=== PATIENT | male | born 1960 | race Caucasian/White ===

== ENCOUNTER → 2017-08-16 07:35 | Outpatient (CLI) | payer OTHER, SELFPAY ==
[2017-08-16 10:12] LABS: Absolute Neutrophil Count 4.7 X10^3/uL (2.0-7.7); Basophil# 0.02 X10^3/uL; Basophil% 0.3 % (0-1); Eosinophil# 0.19 X10^3/uL; Eosinophils% 2.6 % (0-5); Hematocrit 45.1 % (40-54); Hemoglobin 15.7 g/dl (13.0-16.5); Lymphocyte % 21.9 % (19-41); Mean Corp Hgb Conc 34.8 g/gl (32-36); Mean Corpuscular Hgb 31.6 pg (27.0-32.0); Mean Corpuscular Volume 90.7 fL (80-94); Mean Platelet Vol. 10.1 fl (6.2-12.0); Monocyte# 0.77 X10^3/uL; Monocyte% 10.5 % (0-10); Neutrophil # 4.72 X10^3/uL (2.7-7.7); Neutrophil % 64.6 % (47-70); Platelet Count 217 K/mm3 (150-450); RBC Distribution Width CV 12.5 % (11.6-14.6); RBC Distribution Width SD 40.9 fl (35.1-43.9); Red Blood Count 4.97 M/mm3 (4.6-6.2); White Blood Count 7.3 K/mm3 (4.4-11.0)
[2017-08-16 10:22] LABS: POSITIVE COUNT NO; POSITIVE DIFFERENTIAL NO; POSITIVE MORPHOLOGY NO
[2017-08-16 10:27] LABS: Hemoglobin A1c 6.3 % (4.2-6.3)
[2017-08-16 10:28] LABS: ALB/GLOB Ratio 1.2 RATIO (0.9-2.4); AST(SGOT) 19 U/L (15-37); Alanine Aminotransfer ALT/SGPT 40 U/L (16-61); Alkaline Phosphatase 86 U/L (45-117); Anion Gap 11 (5-15); BUN 14 mg/dL (7-18); BUN/Creat Ratio 14.7 RATIO (10-20); Calcium,Total 8.7 mg/dL (8.5-10.1); Chloride 105 mmol/L (98-107); Cholesterol 166 mg/dL (200); Creatinine, Serum 0.95 mg/dL (0.70-1.30); EST Glomerular Filtration Rate 87 mL/min (>60); Est Glom Filt Rate - Afr Amer 105 mL/min (>60); Globulin 3.2 g/dL (2.2-4.2); Glucose 90 mg/dL (74-106); High Density Lipoprotein 53 mg/dL; PSA,Total - Annual Screen 1.48 ng/mL (0.00-4.00); Potassium 3.8 mmol/L (3.5-5.1); Protein, Total 7.2 g/dL (6.4-8.2); Sodium Level 142 mmol/L (136-145); Triglycerides 87 mg/dL; Very Low Density Lipoprotein 17 mg/dL (5-40)
[2017-08-16 10:33] LABS: Color, Urine Yellow (Yellow); Glucose, Dipstick Normal (Normal); Ketone-Dipstick Negative (Negative); Leukocyte Esterase-Dipstick Negative /ul (Negative); Nitrite-Dipstick Negative (Negative); Occult Blood-Urine Negative /ul (Negative); Protein-Dipstick 15 mg/dl (Negative); Urine Bilirubin Dipstick Negative (Negative); Urine Clarity Clear (Clear); Urine Urobilinogen Normal (Normal)
== END ==
PROVIDERS: Family Provider Family Medicine; PCP Family Medicine; Visit Provider Family Medicine
DX: Z00.00 Encounter for general adult medical examination without abnormal findings (principal); E11.9 Type 2 diabetes mellitus without complications; I10 Essential (primary) hypertension
CPT/HCPCS: 36415; 80053; 80061; 81002; 83036; 84153; 85025; G0103

== ENCOUNTER 2018-04-28 11:29 | Emergency (ER) | payer OTHER, SELFPAY ==
[2018-04-28 11:29] VITALS: BP 161/81; PULSE 72; RESP 16; TEMP 36.6; O2SAT 99; BMI 31.1
[2018-04-28 11:39] VITALS: PULSE 80; RESP 17
--- NOTE | 2018-04-28 11:51 | EKG12_ITS ---
Test Reason : DIZZINESS Blood Pressure : / mmHG Vent. Rate : 060 BPM Atrial Rate : 060 BPM P-R Int : 186 ms QRS Dur : 114 ms QT Int : 402 ms P-R-T Axes : 022 006 005 degrees QTc Int : 402 ms Normal sinus rhythm Incomplete right bundle branch block Borderline ECG Confirmed by BETH DAVIDSON, REGINA ([id number]), legal editor ARMANDO TURNER ([id number]) on 05/02/2018 11:31:15 AM Referred By: ED Confirmed By:REGINA CAMPOS MD
--- NOTE | 2018-04-28 11:52 | ED.VISSUMM ---
- ER Visit Summary Date of Service: 04/28/18 Chief Complaint: Lightheaded History of Present Illness: The patient is a 57 M who states that he is lightheaded. He woke up today with the symptoms. He does not describe it as room spinning. He denies a headache or neck pain. Nothing makes it better or worse. No chest pain or shortness of breath. No nausea, vomiting or diarrhea. He denies any urinary symptoms. He feels like his mouth is dry. He has a history of vertigo. He drank a cup of coffee this morning but denies any other alcohol ingestion or drug use today. Physical Examination: Vital signs reviewed. HEENT exam unremarkable. Heart is regular rate and rhythm without murmurs. Lungs are clear to auscultation. Abdomen is soft and nontender. Extremities reveal no edema. Skin exam normal. Neurologic exam normal. Test Results: Laboratory studies unremarkable except for glucose of 113 Emergency Department Course and Treatment: The patient's EKG, chest x-ray and labs are all unremarkable. He was given IV fluids and feels better. He may have been slightly dehydrated. He will increase his hydration of water and will decrease coffee intake. He will follow-up with his PCP Treatment Plan: [] Disposition: Discharge Impression: Lightheaded This note was generated with [employer] dictation software. It may contain incorrect words, spelling, and punctuation that were not noted in review of the chart prior to signing ED Disposition - Plan for ED Patient: Referrals: Amari Carter MD [Primary Care Provider] -
--- NOTE | 2018-04-28 12:10 | RAD_ITS ---
STUDY: X-RAY CHEST REASON FOR EXAM: Male, 57 years old. Dizziness. TECHNIQUE: Single AP portable view of the chest. COMPARISON: November 25, 2013. FINDINGS: Low lung volumes. Cardiac silhouette unremarkable. Pulmonary vascularity unremarkable. Aorta unremarkable. No focal patchy airspace opacities. No pleural effusions. Upper abdomen unremarkable. Osseous structures intact. No pneumothorax. RAD/Chest 1 View (Portable) IMPRESSION: No acute cardiopulmonary findings Electronically Signed: Pato Hartman DO at 12:52 EDT Tel , Service support ,
[2018-04-28] MEDS: Aspirin 81 MG TAB.CHEW 324 MG PO (12:12)
[2018-04-28] MEDS: 0.9% Normal Saline 1,000 ML 999 ML IV (12:12)
[2018-04-28 12:22] LABS: Absolute Lymphocyte Count 1.49 X10^3/ul (0.83-4.51); Absolute Neutrophil Count 3.9 X10^3/uL (2.0-7.7); Basophil# 0.04 X10^3/uL; Basophil% 0.7 % (0-1); Eosinophil# 0.12 X10^3/uL; Hematocrit 43.9 % (40-54); Hemoglobin 14.9 g/dl (13.0-16.5); Lymphocyte # 1.49 X10^3/ul (4.0); Lymphocyte % 24.4 % (19-41); Mean Corp Hgb Conc 33.9 g/gl (32-36); Mean Corpuscular Hgb 31.4 pg (27.0-32.0); Mean Corpuscular Volume 92.6 fL (80-94); Monocyte# 0.58 X10^3/uL; Monocyte% 9.5 % (0-10); Neutrophil # 3.87 X10^3/uL (2.7-7.7); Neutrophil % 63.2 % (47-70); POSITIVE COUNT NO; POSITIVE DIFFERENTIAL NO; POSITIVE MORPHOLOGY NO; Platelet Count 228 K/mm3 (150-450); RBC Distribution Width CV 12.2 % (11.6-14.6); RBC Distribution Width SD 40.7 fl (35.1-43.9); Red Blood Count 4.74 M/mm3 (4.6-6.2); White Blood Count 6.1 K/mm3 (4.4-11.0)
[2018-04-28 12:41] LABS: Anion Gap 6 (5-15); BUN 20 mg/dL (7-18); BUN/Creat Ratio 18.2 RATIO (10-20); Calcium,Total 8.9 mg/dL (8.5-10.1); Chloride 106 mmol/L (98-107); EST Glomerular Filtration Rate 73 mL/min (>60); Est Glom Filt Rate - Afr Amer 89 mL/min (>60); Estimated Creatinine Clearance 71.68 ml/min; Glucose 113 mg/dL (74-106); Potassium 4.2 mmol/L (3.5-5.1); Sodium Level 139 mmol/L (136-145)
--- NOTE | 2018-04-28 13:11 | ED.DEP ---
ED Disposition - Plan for ED Patient: Disposition: Home or Assisted Living Instructions: ED Near Syncope Unkn Referrals: Amari Carter MD [Primary Care Provider] -
[2018-04-28 13:21] VITALS: BP 153/96; PULSE 63; RESP 14
== END 2018-04-28 13:27 | disposition home or self-care (01) ==
PROVIDERS: Emergency Provider Emergency Medicine; Family Provider Family Medicine; PCP Family Medicine
DX: R42 Dizziness and giddiness (principal); I45.10 Unspecified right bundle-branch block; I10 Essential (primary) hypertension
CPT/HCPCS: 71045; 80048; 84484; 85025; 93005; 96360; 99284; J7030; A4216

== ENCOUNTER → 2018-08-17 07:04 | Outpatient (CLI) | payer OTHER, SELFPAY ==
[2018-08-17 10:11] LABS: Color, Urine Yellow (Yellow); Glucose, Dipstick Normal (Normal); Ketone-Dipstick Negative (Negative); Leukocyte Esterase-Dipstick Negative /ul (Negative); Nitrite-Dipstick Negative (Negative); Occult Blood-Urine Negative /ul (Negative); Protein-Dipstick Negative (Negative); Specific Gravity, Urine 1.015 (1.002-1.030); Urine Bilirubin Dipstick Negative (Negative); Urine Clarity Sl. Cloudy (Clear); Urine Urobilinogen Normal (Normal)
[2018-08-17 10:16] LABS: Absolute Lymphocyte Count 1.68 X10^3/ul (0.83-4.51); Absolute Neutrophil Count 3.5 X10^3/uL (2.0-7.7); Basophil# 0.04 X10^3/uL; Basophil% 0.7 % (0-1); Eosinophil# 0.15 X10^3/uL; Eosinophils% 2.5 % (0-5); Hematocrit 47.7 % (40-54); Hemoglobin 16.5 g/dl (13.0-16.5); Lymphocyte # 1.68 X10^3/ul (4.0); Lymphocyte % 27.6 % (19-41); Mean Corp Hgb Conc 34.6 g/gl (32-36); Mean Corpuscular Hgb 30.8 pg (27.0-32.0); Mean Corpuscular Volume 89.2 fL (80-94); Mean Platelet Vol. 10.4 fl (6.2-12.0); Monocyte# 0.73 X10^3/uL; Neutrophil # 3.48 X10^3/uL (2.7-7.7); Platelet Count 220 K/mm3 (150-450); RBC Distribution Width CV 12.2 % (11.6-14.6); RBC Distribution Width SD 39.9 fl (35.1-43.9); Red Blood Count 5.35 M/mm3 (4.6-6.2); White Blood Count 6.1 K/mm3 (4.4-11.0)
[2018-08-17 10:17] LABS: POSITIVE COUNT NO; POSITIVE DIFFERENTIAL NO; POSITIVE MORPHOLOGY NO
[2018-08-17 10:32] LABS: Hemoglobin A1c 5.8 % (4.2-6.3)
[2018-08-17 10:38] LABS: ALB/GLOB Ratio 1.2 RATIO (0.9-2.4); AST(SGOT) 18 U/L (15-37); Alanine Aminotransfer ALT/SGPT 40 U/L (16-61); Albumin, Serum 3.9 g/dL (3.2-5.0); Alkaline Phosphatase 84 U/L (45-117); Anion Gap 8 (5-15); BUN 19 mg/dL (7-18); BUN/Creat Ratio 18.8 RATIO (10-20); Calcium,Total 8.9 mg/dL (8.5-10.1); Chloride 105 mmol/L (98-107); Cholesterol 186 mg/dL (200); Creatinine, Serum 1.01 mg/dL (0.70-1.30); EST Glomerular Filtration Rate 81 mL/min (>60); Est Glom Filt Rate - Afr Amer 98 mL/min (>60); Globulin 3.2 g/dL (2.2-4.2); Glucose 98 mg/dL (74-106); High Density Lipoprotein 54 mg/dL; Potassium 3.7 mmol/L (3.5-5.1); Protein, Total 7.1 g/dL (6.4-8.2); Sodium Level 140 mmol/L (136-145); Triglycerides 85 mg/dL; Very Low Density Lipoprotein 17 mg/dL (5-40)
== END ==
PROVIDERS: Family Provider Family Medicine; PCP Family Medicine; Referring Provider Family Medicine; Visit Provider Family Medicine
DX: Z00.00 Encounter for general adult medical examination without abnormal findings (principal); E11.9 Type 2 diabetes mellitus without complications; I10 Essential (primary) hypertension; Z12.5 Encounter for screening for malignant neoplasm of prostate
CPT/HCPCS: 36415; 80053; 80061; 81002; 83036; 84153; 85025; G0103

== ENCOUNTER → 2019-08-21 07:02 | Outpatient (CLI) | payer OTHER, SELFPAY ==
[2018-11-08 10:20] VITALS: BMI 30.9
[2019-08-21 10:22] LABS: Absolute Lymphocyte Count 1.75 X10^3/uL (0.83-4.51); Absolute Neutrophil Count 4.5 X10^3/uL (2.0-7.7); Basophil# 0.05 X10^3/uL; Basophil% 0.7 % (0-1); Eosinophil# 0.18 X10^3/uL; Eosinophils% 2.5 % (0-5); Hematocrit 46.6 % (40-54); Lymphocyte # 1.75 X10^3/ul (4.0); Lymphocyte % 24.1 % (19-41); Mean Corp Hgb Conc 34.3 g/dL (32-36); Mean Corpuscular Hgb 31.7 pg (27.0-32.0); Mean Corpuscular Volume 92.3 fL (80-94); Mean Platelet Vol. 10.2 fl (6.2-12.0); Monocyte# 0.75 X10^3/uL; Monocyte% 10.3 % (0-10); NRBC Flagged by Analyzer 0 % (0-5); Neutrophil # 4.52 X10^3/uL (2.7-7.7); Neutrophil % 62.1 % (47-70); Platelet Count 245 K/mm3 (150-450); RBC Distribution Width CV 12.4 % (11.6-14.6); RBC Distribution Width SD 41.4 fl (35.1-43.9); Red Blood Count 5.05 M/mm3 (4.6-6.2); White Blood Count 7.3 K/mm3 (4.4-11.0)
[2019-08-21 10:24] LABS: Color, Urine Yellow (Yellow); Glucose, Dipstick Normal (Normal); Ketone-Dipstick Negative (Negative); Leukocyte Esterase-Dipstick Negative /ul (Negative); Nitrite-Dipstick Negative (Negative); Occult Blood-Urine Negative /ul (Negative); Protein-Dipstick Negative (Negative); Urine Bilirubin Dipstick Negative (Negative); Urine Clarity Sl. Cloudy (Clear); Urine Urobilinogen Normal (Normal)
[2019-08-21 10:42] LABS: ALB/GLOB Ratio 1.2 RATIO (0.9-2.4); AST(SGOT) 13 U/L (15-37); Alanine Aminotransfer ALT/SGPT 36 U/L (16-61); Alkaline Phosphatase 90 U/L (45-117); Anion Gap 5 (5-15); BUN 17 mg/dL (7-18); BUN/Creat Ratio 17.2 RATIO (10-20); Calcium,Total 8.6 mg/dL (8.5-10.1); Chloride 109 mmol/L (98-107); Cholesterol 198 mg/dL (200); Creatinine, Serum 0.99 mg/dL (0.70-1.30); EST Glomerular Filtration Rate 83 mL/min (>60); Est Glom Filt Rate - Afr Amer 100 mL/min (>60); Globulin 3.3 g/dL (2.2-4.2); Glucose 108 mg/dL (74-106); High Density Lipoprotein 57 mg/dL; PSA,Total - Annual Screen 1.31 ng/mL (0.00-4.00); Potassium 3.6 mmol/L (3.5-5.1); Protein, Total 7.3 g/dL (6.4-8.2); Sodium Level 139 mmol/L (136-145); Triglycerides 83 mg/dL; Very Low Density Lipoprotein 17 mg/dL (5-40)
[2019-08-21 10:44] LABS: Hemoglobin A1c 5.6 % (3.8-5.6)
== END ==
PROVIDERS: PCP Family Medicine; Referring Provider Family Medicine; Visit Provider Family Medicine
DX: Z00.00 Encounter for general adult medical examination without abnormal findings (principal); E11.9 Type 2 diabetes mellitus without complications; I10 Essential (primary) hypertension; Z12.5 Encounter for screening for malignant neoplasm of prostate
CPT/HCPCS: 36415; 80053; 80061; 81002; 83036; 84153; 85025; G0103

== ENCOUNTER 2019-10-05 23:19 | Emergency (ER) | payer OTHER, SELFPAY ==
[2018-11-08 10:20] VITALS: BMI 30.9
[2019-10-05 23:20] VITALS: BP 150/80; PULSE 73; RESP 16; TEMP 36.3; O2SAT 97; BMI 29.6
--- NOTE | 2019-10-05 23:34 | ED.VIS.GEN ---
History of Present Illness Chief Complaint: Dental Informant: Patient Onset: Today Narrative: Worsening pain lower anterior gumline with swelling today. Had mild symptoms a week ago that went away. No fevers. No hot cold sensitivities. Denies dental pain. Denies any bleeding with brushing. He states had a basketball injury where his teeth was severely loose and when he was younger, he states there was a hole in his gumline at one point which closed up with 10 years ago. He does have a dentist however is not seen in a while. Denies any allergies. Prior similar symptoms: Yes Past Medical History - Allergies and Home Meds Allergies/Adverse Reactions: Allergies No Known Allergies Allergy (Verified 10/05/19 23:22) Primary Care Physician: Amari Carter MD [Primary Care Provider] - Past Medical History: - - Hypertension Smoking Status: Former smoker - Family History Maternal Family History: Family History (Last Reviewed 11/08/18 @ 15:[address] Calvin Yanes MD) Father CAD (coronary artery disease) Hypertension Heart disease Mother CAD (coronary artery disease) Brother Hypertension Family History: Reports: No pertinent history Review of Systems General: Denies: Chills, Fever, Sweats Eyes: Denies: Visual changes - bilaterally, Diplopia ENT: Reports: - - Gum pain. Denies: Rhinorrhea, Sore throat Cardiovascular: Denies: Chest pain, Palpitations Respiratory: Denies: Dyspnea, Cough, Dyspnea on exertion Gastrointestinal: Denies: Abdominal pain, Nausea, Vomiting, Diarrhea, Melena, Hematochezia Genitourinary: Denies: Dysuria, Hematuria, Frequency Musculoskeletal: Denies: Back pain, Extremity Pain Skin: Denies: Rash, Wounds Neurological: Denies: Headache, Weakness, Numbness Physical Exam Vital Signs/Narrative: Vital Signs Temp Pulse Resp BP Pulse Ox 10/05/19 23:20 97.3 F L 73 16 150/80 H 97 Inital Vital Signs reviewed: Yes General: Well nourished, Well developed, No Acute Distress Head: Normocephalic, Atraumatic Eyes: Perrl, EOMI ENT: Moist mucous membranes, No rhinorrhea, - - Normal dentition, there is fluctuance along the gumline along the right lower incisor with tenderness. There is no cavities. No sublingual edema. No submental lymphadenopathy. Neck: Supple, Nontender Cardiovascular: Regular rate, Regular rhythm, No murmurs Respiratory: No distress, CTA bilaterally, Chest nontender Abdomen: Soft, Nontender, Nondistended, Normal bowel sounds Back: Nontender, Normal Inspection Extremities: Nontender, No edema Skin: Normal color, No rash Neurological: Alert, Oriented x3, Cranial nerves II-XII grossly intact, Normal Strength, Normal Sensation Psychological: Normal affect, Normal Mood Diagnostic/Tx/Re-eval - Medical Decision Making Exam with abscess along the gumline right lower incisor. He did report he had some root issues from his dentist in the past, likely infection from this is not visualized. Discussed incised and drained with patient who agreed. This was performed however there is only bloody drainage no exudates. He was started on penicillin for 10 days. Use Tylenol and Motrin as needed. He will follow-up with his dentist. Procedure note: Verbal consent. Incision and drainage. Normal sterile conditions. A dental block use with 2 cc bupivacaine right submental with good analgesia. Straight incision with 11 blade along with fluctuance with no exudates there is bloody drainage. This controlled with gauze. Patient tolerate procedure well. ED Disposition - Plan for ED Patient: Disposition: Home or Assisted Living Diagnosis: Dental abscess Instructions: Dental Abscess Prescriptions: Penicillin V Potassium 500 mg PO 4X/DAY #40 tab Transmission Status: Pending to [facility] Referrals: Amari Carter MD [Primary Care Provider] - Additional Instructions: Follow up with your dentist for evaluation.
[2019-10-06] MEDS: Bupivacaine Mpf 0.5% 30 ML VIAL INFILT (00:55)
[2019-10-06 01:00] VITALS: BP 146/70; PULSE 73; RESP 18; O2SAT 96
== END 2019-10-06 01:01 | disposition home or self-care (01) ==
PROVIDERS: Emergency Provider Emergency Medicine; PCP Family Medicine
DX: K04.7 Periapical abscess without sinus (principal); I10 Essential (primary) hypertension; Z82.49 Family history of ischemic heart disease and other diseases of the circulatory system; Z87.891 Personal history of nicotine dependence
CPT/HCPCS: 41800; 64999; 99282

== ENCOUNTER 2019-11-29 07:21 | Day surgery (SDC) | payer OTHER, SELFPAY ==
[2019-11-29] VITALS (7 sets, daily range): BP systolic 83–119; BP diastolic 46–88; PULSE 70–73; RESP 12–20; TEMP 36.9–37.4; O2SAT 95–96; BMI 29.6
--- NOTE | 2019-11-29 07:52 | SUR.PREOP ---
tap water enema given.
[2019-11-29] MEDS: Lactated Ringers 1,000 ML 100 ML IV (08:02)
--- NOTE | 2019-11-29 08:40 | H&P.OPEN ---
History of Present Illness Date of Admission: 11/29/19 The patient is a 59 year old M who presents for colonoscopy. Patient had a colonoscopy in 2017 had a tubular adenoma removed he presents here for refollow-up and a repeat colonoscopy. Past Medical/Surgical History - Planned Operation Planned Operative Procedure/s: COLONOSCOPY Date of Operative Procedure: 11/29/19 Permit Signed: Yes S.O.S: No Is This Patient Having a Total Joint: No - Previous Hospitalizations/Surgeries HX Hospitalizations: No HX of Surgeries: TONSILLECTOMY CHILD. COLONOSCOPY Any Problems With Anesthesia: No You/Your Family Experience Fever (Hyperthermia) With Anes: No Cholinesterase deficiency: No - Cardiovascular Hx Chest Pain within Last 2 months: No Hx of Irregular Heartbeat and/or Afib: No - FOLLOWS WITH DR CAMPOS LAST VISIT 11/08/2018 Hx Heart Attack: No Hx Congestive Heart Failure: No Hx Rheumatic Fever: No Hx Hypertension: Yes - ON MED, NOT CONTROLLED Hx Internal Defibrillator: No Hx Pacemaker: No Hx Cardiac Catheterization: No Hx Cardiac Surgery/Stents/Etc.: No Hx Stress Test: Yes - 2013 AND ECHO 2013 HX Edema: No Hx Pain in Legs when Walking/Leg Cramps: No - Respiratory Chronic Cough: No HX of Shortness of Breath: No Hoarseness: No Hx Chronic Obstructive Pulmonary Disease (COPD): No Hx Asthma: No Hx Emphysema: No Hx Sleep Apnea: No Hx Oxygen Use at Home: No Hx Respiratory Tract Infection/Cold (presently): No Do You Snore Loudly (louder than talking or can be heard): No Do You Often Feel Tired/ Fatigued/ Sleepy Dring Daytime?: No Has Anyone Observed You Stop Breathing During Sleep?: No Result (for STOP score): Negative Hx Smoking: Yes - QUIT 4 YRS AGO/1/2 PPD FOR 10-15 YRS Smoking Status: Former smoker - Gastrointestinal Hx Gastroesophageal Reflux: Yes - BETTER WITH DIET CHANGE Controlled With Meds: No Hx Gastrointestinal Disorders: No Hx Gastrointestinal Bleed: No Hx Ulcer: No Hx Hiatal Hernia: No Difficulty Chewing/Swallowing: No Recent Onset of Swallowing Problems: No Special diet followed at home: Yes - DIABETIC Hx Unplanned Weight Loss of 20#: No HX Unplanned Weight Gain of 20#: No - Neurological Hx Seizures: No HX Syncope/Blackout Spells/Unconsciousness: No Hx CVA/Stroke: No Hx Transient Ischemic Attacks (TIA): No Hx Multiple Sclerosis: No Hx Parkinson's Disease: No Hx Head/Neck Injury: No Hx Headaches: No Hx Back Injury/Pain: No Recent Onset of Speech Difficulty: No Restless Legs: No Does patient have nerve stimulator: No - Blood Disorder Hx Leukemia: No Bleeding Tendencies: No Hx Deep Vein Thrombosis: No Hx High Cholesterol: No - BORDERLINE Blood Transmitted Disease: No Hx Hepatitis: No Hx Cirrhosis: No Hx Anemia: No Hx Blood Disorders: No - Genitourinary Hx Renal Disease: No - Musculoskeletal Hx Arthritis: No Hx Rheumatoid Arthritis: No Hx Gout: No Recent Onset of an Orthopedic Problem: No - Endocrine Hx Diabetes: No Insulin: No Thyroid Disease: No Hx Steroid Therapy: No - Psycho/Social Hx Substance Use: No Hx Alcohol Use: No Hx Anxiety: No Hx Depression: No Mental Illness: No Hx Dementia: No - Miscellaneous Hx Cancer: No Recent Exposure to Contagious Disease: No Active MRSA: No Hx of C-Diff: No Any Loose Teeth: No Allergies No Known Allergies Allergy (Verified 11/29/19 07:41) Maternal Family History: Family History (Last Reviewed 11/08/18 @ 15:[address] Calvin Campos MD) Father CAD (coronary artery disease) Hypertension Heart disease Mother CAD (coronary artery disease) Brother Hypertension No pertinent history - Discharge Is Pt Admitted From a Group Home, or a Retirement: No Who Could Help: HOSP VAN After D/C, Where Do you Plan to Go: Return Home - Physical Exam Vitals/I&O's: Vital Signs Temp Pulse Resp BP Pulse Ox 98.6 F 72 16 113/69 95 11/29/19 07:44 11/29/19 07:44 11/29/19 07:44 11/29/19 07:44 11/29/19 07:44 Oxygen Delivery Method Room Air Weight: 195 lb 1.745 oz Body Mass Index (BMI) 29.6 General: Alert, Oriented x3 Lungs: Clear to auscultation Cardiovascular: Regular rate, Regular Rhythm, No murmurs Abdomen: Bowel Sounds Present, Soft, Non Tender, Non-Distended Current Medications Lactated Ringer's () 1,000 mls @ 100 mls/hr IV .Q10H KULWANT Last Admin: 11/29/19 08:02 Dose: 100 mls/hr Documented by: Assessment/Plan Assessment: Personal history of colonic polyps Plan: To perform a colonoscopy. Surgery Risks - Colonoscopy Risks Include but are not Limited To: Risks include but are not limited to: Bleeding, perforation requiring further surgery, inability to complete colonoscopy requiring barium enema.
--- NOTE | 2019-11-29 09:01 | OP.COLON_ITS ---
Patient Name: Blake Juan Procedure Date: 11/29/2019 8:34 AM Date of : 1960 Age: 59 Procedure: Colonoscopy Indications: High risk colon cancer surveillance: Personal history of colonic polyps Providers: Rodo Medina MD Referring MD: Amari Carter Medicines: See the Anesthesia note for documentation of the administered medications Patient Profile: This is a 59 year old male. Refer to note in patient chart for documentation of history and physical. Last Colonoscopy: 3 years ago. Complications: No immediate complications. Procedure: Pre-Anesthesia Assessment: - Prior to the procedure, a History and Physical was performed, and patient medications and allergies were reviewed. The patient's tolerance of previous anesthesia was also reviewed. The risks and benefits of the procedure and the sedation options and risks were discussed with the patient. All questions were answered, and informed consent was obtained. Prior Anticoagulants: The patient has taken no previous anticoagulant or antiplatelet agents. ASA Grade Assessment: II - A patient with mild systemic disease. After reviewing the risks and benefits, the patient was deemed in satisfactory condition to undergo the procedure. After I obtained informed consent, the scope was passed under direct vision. Throughout the procedure, the patient's blood pressure, pulse, and oxygen saturations were monitored continuously. The Colonoscope was introduced through the anus and advanced to the cecum, identified by appendiceal orifice and ileocecal valve. The colonoscopy was performed without difficulty. The patient tolerated the procedure well. The quality of the bowel preparation was good. Scope In: 8:44:23 AM Scope Withdrawal Time 0 hours 9 minutes 35 seconds Scope Out: 8:56:31 AM Total Procedure Duration Time 0 hours 12 minutes 8 seconds Findings: Non-bleeding internal hemorrhoids were found during retroflexion. The hemorrhoids were mild and medium-sized. A few small-mouthed diverticula were found in the sigmoid colon. No biopsies or other specimens were collected for this exam. The exam was otherwise without abnormality. Impression: - Non-bleeding internal hemorrhoids. - Diverticulosis in the sigmoid colon. No specimens collected. - The examination was otherwise normal. Recommendation: - Discharge patient to home. - Resume previous diet. - Continue present medications. - Repeat colonoscopy in 10 years for screening purposes. - Return to primary care physician (date not yet determined). Procedure Code(s): --- Professional --- 47412, Colonoscopy, flexible; diagnostic, including collection of specimen(s) by brushing or washing, when performed (separate procedure) Diagnosis Code(s): --- Professional --- Z86.010, Personal history of colonic polyps K64.8, Other hemorrhoids K57.30, Diverticulosis of large intestine without perforation or abscess without bleeding CPT copyright 2017 [employer]. All rights reserved. The codes documented in this report are preliminary and upon mortician investigator review may be revised to meet current compliance requirements. MD Rodo Mejia MD 11/29/2019 9:01:31 AM This report has been signed electronically. Number of Addenda: 0 Note Initiated On: 11/29/2019 8:34 AM
--- NOTE | 2019-11-29 09:02 | OP.CCLET_ITS ---
11/29/2019 Amari Carter Re : Colonoscopy procedure for Blake Juan Dear Raul This procedure was performed on Friday, November 29, 2019. My impressions and recommendations are as follows: Impressions : - Non-bleeding internal hemorrhoids. - Diverticulosis in the sigmoid colon. No specimens collected. - The examination was otherwise normal. Recommendations : - Discharge patient to home. - Resume previous diet. - Continue present medications. - Repeat colonoscopy in 10 years for screening purposes. - Return to primary care physician (date not yet determined). My findings are described in the full procedure note, which is enclosed. If I can be of further assistance, please feel free to contact me at Doctor phone number(s): , Fax: [phone], Work: . Sincerely, MD Rodo Mejia MD 11/29/2019 9:01:31 AM This report has been signed electronically.
== END 2019-11-29 09:54 | disposition home or self-care (01) ==
LOC: EN 07:21 → AC 07:22
PROVIDERS: Anesthesiology; PCP Family Medicine; Referring Provider Family Medicine; Visit Provider Surgery
PROC: 0DJD8ZZ Inspection of Lower Intestinal Tract, Via Natural or Artificial Opening Endoscopic (ICD-10-PCS; CPT 45378; principal; 2019-11-29 08:40)
DX: Z12.11 Encounter for screening for malignant neoplasm of colon (principal); Z86.010 Personal history of colon polyps; Z87.19 Personal history of other diseases of the digestive system; Z82.49 Family history of ischemic heart disease and other diseases of the circulatory system; K64.8 Other hemorrhoids; K57.30 Diverticulosis of large intestine without perforation or abscess without bleeding; I10 Essential (primary) hypertension
CPT/HCPCS: 45380; 87635; C9803; J7120; J2405; U0003

== ENCOUNTER → 2020-10-21 07:02 | Outpatient (CLI) | payer OTHER, SELFPAY ==
[2020-10-21 10:39] LABS: Absolute Lymphocyte Count 1.35 X10^3/uL (0.83-4.51); Absolute Neutrophil Count 4.2 X10^3/uL (2.0-7.7); Basophil# 0.04 X10^3/uL; Basophil% 0.6 % (0-1); Eosinophil# 0.19 X10^3/uL; Hemoglobin 15.4 g/dL (13.0-16.5); Lymphocyte # 1.35 X10^3/ul (0.83-4.51); Mean Corp Hgb Conc 34.2 g/dL (32-36); Mean Corpuscular Volume 90.7 fL (80-94); Mean Platelet Vol. 10.5 fl (6.2-12.0); Monocyte# 0.66 X10^3/uL; Monocyte% 10.2 % (0-10); NRBC Flagged by Analyzer 0 % (0-5); Neutrophil # 4.17 X10^3/uL (2.7-7.7); Neutrophil % 64.7 % (47-70); Platelet Count 214 K/mm3 (150-450); RBC Distribution Width CV 12.1 % (11.6-14.6); RBC Distribution Width SD 40.1 fl (35.1-43.9); Red Blood Count 4.96 M/mm3 (4.6-6.2); White Blood Count 6.4 K/mm3 (4.4-11.0)
[2020-10-21 10:58] LABS: ALB/GLOB Ratio 1.1 RATIO (0.9-2.4); AST(SGOT) 17 U/L (15-37); Alanine Aminotransfer ALT/SGPT 42 U/L (16-61); Albumin, Serum 3.7 g/dL (3.2-5.0); Alkaline Phosphatase 84 U/L (45-117); Anion Gap 8 (5-15); BUN 13 mg/dL (7-18); Chloride 105 mmol/L (98-107); Cholesterol 178 mg/dL (200); Creatinine, Serum 0.93 mg/dL (0.70-1.30); EST Glomerular Filtration Rate 88 mL/min (>60); Est Glom Filt Rate - Afr Amer 107 mL/min (>60); Globulin 3.5 g/dL (2.2-4.2); Glucose 104 mg/dL (74-106); High Density Lipoprotein 57 mg/dL; Potassium 3.4 mmol/L (3.5-5.1); Protein, Total 7.2 g/dL (6.4-8.2); Sodium Level 139 mmol/L (136-145); Triglycerides 129 mg/dL; Very Low Density Lipoprotein 26 mg/dL (5-40)
--- NOTE | 2020-10-21 13:19 | RAD_ITS ---
STUDY: X-RAY - LUMBAR SPINE REASON FOR EXAM: Male, 60 years old. BACK PAIN TECHNIQUE: 3 view(s) of the lumbar spine were obtained. COMPARISON: None FINDINGS: Normal lumbar lordosis. There is no substantial scoliosis. There is a normal alignment of the vertebrae from L1 to L5. There is a grade 1-2 spondylolisthesis at L5/S1 with significant disc space narrowing and vacuum disc phenomenon.. There is multilevel endplate spondylosis of the lumbar vertebrae. There is multi-level degenerative disc disease with multi-level disc space narrowing. There is no demonstrated fracture. The soft tissue structures are unremarkable. RAD/Lumbar Spine 2 or 3 Views IMPRESSION: Multilevel degenerative changes without fracture or suspicious osseous lesion Grade 1-2 spondylolisthesis of L5/S1 with significant disc space narrowing and vacuum disc phenomenon. Electronically Signed: Gilbert Landaverde MD at 16:57 EDT , Service support ,
== END ==
PROVIDERS: PCP Family Medicine; Referring Provider Family Medicine; Visit Provider Family Medicine
DX: I10 Essential (primary) hypertension (principal); M54.5 Low back pain
CPT/HCPCS: 36415; 72100; 80053; 80061; 85025

== ENCOUNTER → 2021-01-22 14:57 | Outpatient (CLI) | payer OTHER, SELFPAY ==
--- NOTE | 2021-01-22 15:00 | ECHOCS_ITS ---
Reason For Study: HTN Procedure This was a 2D Doppler, Color Flow transthoracic echocardiogram. The study was technically difficult. Contrast injection was performed. Exam performed in department. Left Ventricle Normal LV size. Left ventricular systolic function is normal. The estimated ejection fraction is 60 %. No regional wall motion abnormalities noted. Right Ventricle Normal RV size. Normal systolic function. Atria Normal left atrium. Normal right atrium. Mitral Valve Normal mitral valve. Tricuspid Valve Normal tricuspid valve. Mild (1+) tricuspid valve insufficiency. Pulmonary artery systolic pressure is 38 mmHg. Aortic Valve Normal aortic valve. Pulmonic Valve Normal pulmonic valve. Great Vessels Normal aortic root. The pulmonary artery is normal size. Normal inferior vena cava. Pericardium/Pleural No pericardial effusion. Medication 22 gauge I.V. with prn adaptor inserted into left arm. Diluted definity 4.0ml given slow IV push to enhance endocardial definition. MMode/2D Measurements & Calculations LVIDd: 4.7 cm IVSd: 0.88 cm Ao root diam: 3.8 cm LVIDs: 3.1 cm LVPWd: 0.88 cm RVDd: 3.6 cm FS: 34.0 % LAV(MOD-bp): 42.3 ml LA A4 area: 16.0 cm2 LA dimension(2D): 3.9 cm LAV(MOD-bp) Indexed: 20.9 ml/m2 LAV(MOD-sp2): 42.7 ml LAV(MOD-sp4): 40.5 ml RA A4 area: 16.2 cm2 Doppler Measurements & Calculations MV E max jose: 88.4 cm/sec Lat Peak E' Jose: 11.6 cm/sec Med Peak E' Jose: 7.4 cm/sec MV A max jose: 83.1 cm/sec E/E' lat: 7.6 E/E' med: 11.9 MV E/A: 1.1 Ao V2 max: 175.0 cm/sec LV V1 max: 123.8 cm/sec PA V2 max: 144.3 cm/sec Ao max P.3 mmHg LV V1 max P.1 mmHg TR max jose: 294.5 cm/sec TR max P.7 mmHg ECHO/Echo Complete W/ Contrast Interpretation Summary Normal LV size. Left ventricular systolic function is normal. The estimated ejection fraction is 60 %. Pulmonary artery systolic pressure is 38 mmHg. Contrast injection was performed. Ordering Physician: Calvin Yanes Referring Physician: AARON ANDERSON Performed By: Christina Wilson, MAHNAZCS, RVT
== END ==
PROVIDERS: PCP Family Medicine; Referring Provider Internal Medicine Cardiovascular Disease; Visit Provider Internal Medicine Cardiovascular Disease
DX: I10 Essential (primary) hypertension (principal)
CPT/HCPCS: 93306; Q9957; A4216; C8929

== ENCOUNTER → 2021-01-25 08:00 | Outpatient (CLI) | payer OTHER, SELFPAY ==
--- NOTE | 2021-01-25 08:19 | MRI_ITS ---
HISTORY: PAIN. TECHNIQUE: Multiplanar and multisequence MR images of the lumbar spine. IV Contrast dosage and agent: None. # of images incl. paperwork: 137. COMPARISON: XR 10/21/2020. FINDINGS: VERTEBRAE: Vertebral body heights maintained. L4 vertebral body hemangioma present. Bilateral L5 spondylolysis. Degenerative bone marrow endplate changes of L5-S1. ALIGNMENT: Unchanged 10 mm anterolisthesis of L5-S1 CONUS: Normal morphology and position at L1. SOFT TISSUES: No paraspinal fluid collections. INTERVERTEBRAL DISCS: Multilevel degenerative changes with posterior disc bulge osteophyte complexes and facet arthropathy. L1-2: Very mild central canal stenosis and right foraminal narrowing. L2-3:Minimal narrowing of thecal sac. Mild bilateral foraminal narrowing. L3-4: Minimal narrowing of the thecal sac. Moderate bilateral foraminal narrowing. L4-5: No significant central canal stenosis. Mild left greater than right foraminal narrowing. L5-S1: Loss of intervertebral disc height. No significant central canal stenosis. Moderate-severe bilateral foraminal narrowing with bilateral L5 nerve root impingement. MRI/Spine Lumbar (Routine) IMPRESSION: L5 spondylolysis with grade 1-2 spondylolisthesis. Multilevel degenerative disc disease as described above. at 0935 Reported and signed by: Nancy Skinner MD Electronically Signed: Nancy Skinner MD at 9:34 EST Tel , Service support ,
== END ==
PROVIDERS: PCP Family Medicine; Referring Provider Anesthesiology Pain Medicine; Visit Provider Anesthesiology Pain Medicine
DX: M54.9 Dorsalgia, unspecified (principal); M79.605 Pain in left leg
CPT/HCPCS: 72148

== ENCOUNTER 2021-07-11 17:15 | Emergency (ER) | payer OTHER, SELFPAY ==
[2021-07-11 17:15] VITALS: BP 151/84; PULSE 70; RESP 16; TEMP 36.5; O2SAT 94; BMI 29.6
--- NOTE | 2021-07-11 17:35 | EKG12_ITS ---
Test Reason : Blood Pressure : / mmHG Vent. Rate : 064 BPM Atrial Rate : 064 BPM P-R Int : 174 ms QRS Dur : 108 ms QT Int : 388 ms P-R-T Axes : 045 003 010 degrees QTc Int : 400 ms Normal sinus rhythm Normal ECG Confirmed by BETH DAVIDSON, REGINA ([id number]), restaurant expeditor ARMANDO TURNER ([id number]) on 07/14/2021 1:01:46 PM Referred By: MARIE Confirmed By:REGINA CAMPOS MD
--- NOTE | 2021-07-11 17:35 | CT_ITS ---
STUDY: CT BRAIN WITHOUT CONTRAST REASON FOR EXAM: Male, 61 years old. dizzy TECHNIQUE: Transaxial CT imaging of the brain was performed without administration of intravenous contrast material. Individualized dose optimization techniques were used for this CT. COMPARISON: None FINDINGS: Normal calvarium. Normal soft tissues. Normal size ventricles and extra-axial spaces for the patient''s age. Normal white matter tracts of the cerebral hemispheres. Normal basal ganglia and thalami. Normal brainstem. Normal cerebellum. There is no intracranial hemorrhage. There are no findings of an acute ischemic infarction. There are calcifications noted in the distal vertebral arteries. There are calcifications noted in the cavernous carotid arteries. This is consistent for atherosclerotic disease. Normal visualized paranasal sinuses. ASPECTS 10 CT/Brain/Head without Contrast IMPRESSION: There are no acute intracranial findings. Electronically Signed: Tone Kauffman MD at 18:27 EDT ,
--- NOTE | 2021-07-11 17:36 | EX.ED.DYSGE1 ---
HPI <BETZY Tarango - Last Filed: 07/11/21 19:43> History of Present Illness Chief Complaint: Dizziness Narrative Narrative: 61-year-old male with history of hypertension, lipidemia [facility] the [facility] with a dizzy episode. Patient states he was walking downstairs, he is employed here at the hospital, he was standing looking at a computer screen went to look at another code pewter screen and became dizzy. Patient denies any headache, chest pain, fever or chills. Patient states feeling well until this happened. Patient states that a couple days ago he developed some neck pain and tightness however that has since dissipated and has not returned. Patient is here for evaluation. He states to have slight nausea however that has improved. Denies any headache. Denies any weakness to his upper or lower extremities. [facility] <BETZY Tarango - Last Filed: 07/11/21 19:43> [facility] Medical History Chest pain Essential (primary) hypertension GERD (gastroesophageal reflux disease) History of tobacco use Incomplete right bundle branch block Home Medications garlic 5,000 mcg PO DAILY 01/04/17 [History Last Taken Unknown] hydrochlorothiazide 25 mg PO DAILY 01/04/17 [History Last Taken 11/29/19] metoprolol tartrate 100 mg PO BID 01/04/17 [History Last Taken 11/29/19] amlodipine 5 mg tablet 5 mg PO DAILY #90 tab 11/21/19 [Rx Last Taken Unknown] losartan 100 mg tablet 100 mg PO DAILY #90 tab 09/06/20 [Rx Last Taken Unknown] meloxicam 7.5 mg tablet 7.5 mg PO DAILY PRN 12/31/20 [History Last Taken Unknown] meclizine [Antivert] 25 mg PO DAILY PRN #10 tab 07/11/21 [Rx Last Taken Unknown] Allergy/AdvReac Type Severity Reaction Status Date / Time No Known Allergies Allergy Verified 07/11/21 17:19 Family History Father CAD (coronary artery disease) Hypertension Heart disease Myocardial infarction Macular degeneration Mother CAD (coronary artery disease) Heart disease Diabetes Breast cancer Brother Hypertension Surgical History H/O tooth extraction History of colonoscopy (01/2017) History of tonsillectomy and adenoidectomy Social History household members: children housing: house current occupational status: employed current occupation: [employer] with [employer] pets and animals: Yes pets and animals: cat(s), dog(s) and bird(s) Smoking Status: Former smoker alcohol intake: never substance use type: does not use what type of physical activity do you participate in: none do you feel safe at home: Yes ROS <BETZY Tarango - Last Filed: 07/11/21 19:43> ROS ED ROS Narrative Constitutional: Negative for fever, chills, weight loss, weakness Eyes: Negative for vision loss, vision change, double vision ENT: Negative for any sore throat, ear pain, congestion Cardiovascular: Negative for any chest pain, tightness, palpitations Respiratory: Negative for any cough, sputum production, hemoptysis, dyspnea, dyspnea on exertion, orthopnea Gastrointestinal: Negative for any abdominal pain, vomiting, diarrhea, constipation, blood in stool, blood in vomit. Positive for nausea : Negative for any urinary frequency, dysuria, retention, blood in urine Muscle skeletal: Negative for any muscle joint pain, stiffness, myalgias, arthralgias, neck pain, back pain Neurological: Negative for any headache, syncope, numbness or tingling. Positive for dizziness Skin: Negative for any rashes, lumps, itching, abrasions, lacerations Psychiatric: Negative for any depression, anxiety, stress, suicidal ideation, homicidal ideation Hematologic: Negative for any easy bruising, excessive bruising, easy bleeding Allergies: Negative for any eczema, hives, rash EXAM <BETZY Tarango - Last Filed: 07/11/21 19:43> Physical Exam Narrative Exam Narrative: Vital signs reviewed. HEET: Head normocephalic atraumatic, TMs clear bilaterally. Posterior pharynx is clear, moist mucous membranes. Nares clear bilaterally. Neck: Supple with no lymphadenopathy or tenderness. No signs of meningismus, negative jolt sign. Cardiac: Regular rate and rhythm no murmurs gallops or rubs, equal peripheral pulses bilaterally. Respiratory: Lungs clear to auscultation bilaterally. No chest tenderness. Abdomen: Soft, nontender, nondistended. No abdominal bruit or pulsatile masses. No hepatosplenomegaly Extremities: No peripheral edema, no signs of gross trauma or deformity. Active full range of motion of all extremities. Neuro: Cranial nerves II through XII intact, no focal neurological deficits. Negative Sublette-Hallpike maneuver. Patient did have a positive Romberg. NIH score 0. Skin: Clean dry and intact with no rash, purpura, petechiae, vesicles or pustules. Backs/flank: No CVA tenderness, no midline spinal tenderness, no deformity. Psych: Normal mood and affect. No SI, HI or acute psychosis. Const Vital Signs: 07/11/21 17:15 07/11/21 17:53 07/11/21 18:38 Temperature 97.7 F L Temperature Source Temporal Pulse Rate 70 61 Respiratory Rate 16 18 Respiratory Effort Normal Non-Labored Respiratory Pattern Normal Blood Pressure 151/84 H 136/83 H Blood Pressure Mean 106 100 Pulse Ox 94 94 Oxygen Delivery Method Room Air Room Air Positive well nourished and well developed General Appearance ED: well developed <Dr. Larry Brooke MD - Last Filed: 07/11/21 18:25> Physical Exam Const Vital Signs: 07/11/21 17:15 07/11/21 17:53 07/11/21 18:38 Temperature 97.7 F L Temperature Source Temporal Pulse Rate 70 61 Respiratory Rate 16 18 Respiratory Effort Normal Non-Labored Respiratory Pattern Normal Blood Pressure 151/84 H 136/83 H Blood Pressure Mean 106 100 Pulse Ox 94 94 Oxygen Delivery Method Room Air Room Air [facility] <BETZY Tarango - Last Filed: 07/11/21 19:43> [facility] Narrative Medical decision making narrative: Patient appears well, patient appears nontoxic, vital signs are stable. Patient presents to the emergency department with complaints of a sudden onset of dizziness. Patient was standing, turned quickly and then felt dizzy, he felt slightly off balance. Patient did receive basic laboratory values, patient CBC was unremarkable, chemistries were unremarkable. Patient's EKG showed normal sinus rhythm and was normal. Patient did receive a CT scan which showed no acute intracranial findings. Patient was given IV fluids, nausea medicine. On reevaluation, patient felt much better. I believe the patient had a touch of vertigo, he appears well now. Patient does have a long history of tinnitus, he plays music, I will have him follow-up with the ENT. At this time there is no evidence of any TIA/CVA, I do not believe there is any cardiopulmonary pathology. Patient be diagnosed with vertigo, and is stable for discharge. Instructed return for any worsening symptoms. He will be given a couple pills of Antivert if he does have another dizzy episode to see if this improves his symptoms. Lab Data Attestation: I reviewed the patient's lab results. Labs: Laboratory Results - last 24 hr 07/11/21 07/11/21 17:55 17:55 WBC 7.6 RBC 4.91 Hgb 15.4 Hct 43.9 MCV 89.4 MCH 31.4 MCHC 35.1 RDW Std Deviation 39.6 RDW Coeff of [place] 12.1 Plt Count 229 MPV 9.7 Immature Gran % (Auto) 0.400 Neut % (Auto) 60.7 Lymph % (Auto) 25.1 [place] % (Auto) 11.3 H Eos % (Auto) 2.0 Baso % (Auto) 0.5 Absolute Neuts (auto) 4.6 Absolute Lymphs (auto) 1.91 Nucleated RBC % 0 Sodium 138 Potassium 3.6 Chloride 104 Carbon Dioxide 27.0 Anion Gap 7 BUN 17 Creatinine 0.98 Estim Creat Clear Calc 76.58 Est GFR (MDRD) Af Amer 100 Est GFR (MDRD) Non-Af 82 BUN/Creatinine Ratio 17.3 Glucose 94 Calcium 9.3 Radiography Diagnostic Testing: Clinical Impression(s) from Imaging Studies Brain CT 07/11/21 17:35 IMPRESSION: There are no acute intracranial findings. Electronically Signed: Tone Kauffman MD at 18:27 EDT , <Dr. Larry Brooke MD - Last Filed: 07/11/21 18:25> [facility] Narrative Medical decision making narrative: I have personally performed a face to face assessment of the patient and have reviewed the ISAK Note. I performed a substantive portion of the visit including all aspects of the following. My ruiz findings include: History: Patient states he had an episode of dizziness with a feeling as though he was spinning. He states the room was not spinning. He was working at 1 computer screen. He turned to the left to do some other work. He had been looking down and then he looked up. He had some spinning sensation. He states he might of had some very mild nausea but no vomiting. No chest pain or trouble breathing. He has 8 drinks a day but only 1 glass of water. He felt fine until he turned and this occurred. He is feeling better now given fluids. I asked the patient about his neck head pain that he had a couple days ago. He describes it really as a fullness. He states it felt like his ears were full or blocked. But that [place] is gone now. He states it was not really a pain. It is not there now. Patient also has a history of longstanding tinnitus likely related to hearing loss. For over 25 years he is late in a band which was likely the cause of his hearing loss. He is also had no change in medicines. Exam shows patient is awake alert and appropriate. He has a little bit of symptoms if he looks left or right but not more one direction or the other. It is not causing nausea now. Tympanic membranes are both clear. Left has trace fluid but is not at all red. There is no significant cerumen. NIH is 0. No bruit. Lungs are clear. Heart is regular. Peripheral pulses are equal. No discoordination. Medical Decison Making: Patient will have fluids done. We will check blood this. CT scan of his head is being done. Lab Data Labs: Laboratory Results - last 24 hr 07/11/21 07/11/21 17:55 17:55 WBC 7.6 RBC 4.91 Hgb 15.4 Hct 43.9 MCV 89.4 MCH 31.4 MCHC 35.1 RDW Std Deviation 39.6 RDW Coeff of [place] 12.1 Plt Count 229 MPV 9.7 Immature Gran % (Auto) 0.400 Neut % (Auto) 60.7 Lymph % (Auto) 25.1 [place] % (Auto) 11.3 H Eos % (Auto) 2.0 Baso % (Auto) 0.5 Absolute Neuts (auto) 4.6 Absolute Lymphs (auto) 1.91 Nucleated RBC % 0 Sodium 138 Potassium 3.6 Chloride 104 Carbon Dioxide 27.0 Anion Gap 7 BUN 17 Creatinine 0.98 Estim Creat Clear Calc 76.58 Est GFR (MDRD) Af Amer 100 Est GFR (MDRD) Non-Af 82 BUN/Creatinine Ratio 17.3 Glucose 94 Calcium 9.3 Radiography Diagnostic Testing: Clinical Impression(s) from Imaging Studies Brain CT 07/11/21 17:35 IMPRESSION: There are no acute intracranial findings. Electronically Signed: Tone Kauffman MD at 18:27 EDT Reading Location ID and State: [id number] / [place] , Service support , Discharge Plan Triage Chief Complaint: Dizziness ED Midlevel Provider: Dick Hairston ED Provider: Larry Brooke Dx/Rx/DC Orders Clinical Impression: Vertigo, Dizziness Instructions: Vertigo Inner Ear Problems, ED Dizziness, Uncertain Cause Prescriptions: New meclizine [Antivert] 25 mg tablet,chewable 25 mg PO DAILY PRN (Reason: dizziness) Qty: 10 RF: 0 No Action meloxicam 7.5 mg tablet 7.5 mg PO DAILY PRN (Reason: Pain) RF: 0 metoprolol tartrate 100 MG tablet 100 mg PO BID RF: 0 hydrochlorothiazide 25 MG tablet 25 mg PO DAILY RF: 0 garlic 5,000 MCG tablet 5,000 mcg PO DAILY RF: 0 amlodipine [Norvasc] 5 mg tablet 5 mg PO DAILY Qty: 90 RF: 3 losartan 100 mg tablet 100 mg PO DAILY Qty: 90 RF: 3 Primary Care Provider: Dayami Mata Referrals: Miquel Bland MD [STAFF PHYSICIAN] - Dayami Mata MD [Primary Care Provider] - Activity Restrictions/Additional Instructions: You may try the Antivert for dizzy spells however this can cause drowsiness Print Language: [place] Irish Disposition Disposition: Home, Self Care
[2021-07-11] MEDS: 0.9% Normal Saline 1,000 ML 1000 ML IV (17:50)
[2021-07-11] MEDS: Ondansetron 4 MG/2 ML Vial IV (17:51)
[2021-07-11 18:11] LABS: Absolute Lymphocyte Count 1.91 X10^3/uL (0.83-4.51); Absolute Neutrophil Count 4.6 X10^3/uL (2.0-7.7); Basophil# 0.04 X10^3/uL; Basophil% 0.5 % (0-1); Eosinophil# 0.15 X10^3/uL; Hematocrit 43.9 % (40-54); Hemoglobin 15.4 g/dL (13.0-16.5); Lymphocyte # 1.91 X10^3/ul (0.83-4.51); Lymphocyte % 25.1 % (19-41); Mean Corp Hgb Conc 35.1 g/dL (32-36); Mean Corpuscular Hgb 31.4 pg (27.0-32.0); Mean Corpuscular Volume 89.4 fL (80-94); Mean Platelet Vol. 9.7 fl (6.2-12.0); Monocyte# 0.86 X10^3/uL; Monocyte% 11.3 % (0-10); NRBC Flagged by Analyzer 0 % (0-5); Neutrophil # 4.62 X10^3/uL (2.7-7.7); Neutrophil % 60.7 % (47-70); Platelet Count 229 K/mm3 (150-450); RBC Distribution Width CV 12.1 % (11.6-14.6); RBC Distribution Width SD 39.6 fl (35.1-43.9); Red Blood Count 4.91 M/mm3 (4.6-6.2); White Blood Count 7.6 K/mm3 (4.4-11.0)
[2021-07-11 18:31] LABS: Anion Gap 7 (5-15); BUN 17 mg/dL (7-18); BUN/Creat Ratio 17.3 RATIO (10-20); Calcium,Total 9.3 mg/dL (8.5-10.1); Chloride 104 mmol/L (98-107); Creatinine, Serum 0.98 mg/dL (0.70-1.30); EST Glomerular Filtration Rate 82 mL/min (>60); Est Glom Filt Rate - Afr Amer 100 mL/min (>60); Estimated Creatinine Clearance 76.58 ml/min; Glucose 94 mg/dL (74-106); Potassium 3.6 mmol/L (3.5-5.1); Sodium Level 138 mmol/L (136-145)
[2021-07-11 18:38] VITALS: BP 136/83; PULSE 61; RESP 18; O2SAT 94
[2021-07-11 19:50] VITALS: BP 134/87
== END 2021-07-11 19:50 | disposition home or self-care (01) ==
PROVIDERS: Nurse Practitioner; Emergency Provider Emergency Medicine; PCP Family Medicine; Visit Provider Emergency Medicine
DX: R42 Dizziness and giddiness (principal); I10 Essential (primary) hypertension; Z79.899 Other long term (current) drug therapy; Z87.891 Personal history of nicotine dependence
CPT/HCPCS: 70450; 80048; 85025; 93005; 96361; 96374; 99283; J7030; A4216; J2405

== ENCOUNTER → 2022-01-13 | Outpatient (CLI) | payer OTHER, SELFPAY ==
[2022-01-13 10:23] LABS: AST(SGOT) 20 U/L (15-37); Alanine Aminotransfer ALT/SGPT 47 U/L (16-61); Albumin, Serum 3.9 g/dL (3.2-5.0); Alkaline Phosphatase 90 U/L (45-117); Bilirubin, Direct 0.18 mg/dL (0.00-0.30); Cholesterol 200 mg/dL (200); Globulin 2.9 g/dL (2.2-4.2); High Density Lipoprotein 55 mg/dL; Protein, Total 6.8 g/dL (6.4-8.2); Triglycerides 122 mg/dL; Very Low Density Lipoprotein 24 mg/dL (5-40)
== END | disposition home or self-care (01) ==
LOC: MTLAB 08:15
PROVIDERS: PCP Family Medicine; Referring Provider Nurse Practitioner Gerontology; Visit Provider Nurse Practitioner Gerontology
DX: E78.5 Hyperlipidemia, unspecified (principal)
CPT/HCPCS: 36415; 80061; 80076

== ENCOUNTER 2022-04-06 11:00 | Outpatient (RCR) | payer OTHER, SELFPAY ==
--- NOTE | 2022-05-12 09:56 | HP.PTEVAL_ITS ---
Patient's Visit Information LUPIS RAMIREZ is a 61 year old M referred to Physical Therapy by Dr. Taurus Coyle, DO with a diagnosis of BACK PAIN. Date of Evaluation: 04/06/22 Physical Therapist: Pauline Brownlee, PT, Cert MDT - Visit Plan Plan: COMPLETE PT EVAL WHEN PT ORDER REC'D. PATIENT PLANS TO HAVE THE X-RAYS DONE THAT WERE ORDERED BY DR. COYLE AND THEN GET THOSE RESULTS AND DISCUSS THERAPY FURTHER. 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 2ND JOB IS RUNNING A [employer] AT [employer] 20 TO 25 HOURS A WK - SOME LIFTING AND NEAR CONSTANT STANDING. SOME BENDING AND TWISTING WITH BOTH JOBS. Disability: NO. Present symptoms: LOW BACK PAIN, RIGHT LEG PAIN DOWN TO MID CALF AREA IN THE BACK. PATCH OF NUMBNESS RIGHT LATERAL UPPER LEG. PATIENT DENIES L LE SX'S STATING HE USE TO HAVE SX'S IN THE LEFT LEG BUT NOT ANYMORE. Present since: ABOUT 20 YEARS AGO. Pain Scale: WORST 10/10, LEAST 1/10. Currently: 1/10. Is it getting better, worse or staying the same: GETTING WORSE. Commenced as a result of: NO APPARENT REASON. Symptoms at onset: LOW BACK PAIN. Worse: NOTHING MAKES IT WORSE THAT PATIENT CAN IDENTIFY. Better: FEELS BETTER ON THE WEEKENDS WHEN HOME. BRACE SEEMS TO HELP. Disturbed sleep: YES. Previous history/Previous treatment: [address] ALFRED WITHOUT BENEFIT. NO BACK SURGERY. TWO CONSULTS WITH DR. COYLE - NO SURGERY RECOMMENDED. STATES PCP IS AWARE OF HIS BACK PAIN TOO. NO PHYSICAL THERAPY. NO CHIROPRACTIC FOR ABOUT 20 YEARS. CONSTANT PAIN SINCE SUMMER 2019 WHEN BACK TO WORK. BETTER WHEN NOT WORKING LIKE WHEN OFF FOR COVID. Coughing/sneezing/straining: NEGATIVE. Gait: PATIENT REPORTS THAT WHEN PAIN FLARES UP HE CAN'T WALK AND AT TIMES IT IS VERY DIFFICULTY AND PAINFUL TO WALK OUT OF WORK. Bowel or Bladder Dysfunction: NO. Accidents: NO. Unexplained weight loss: NO. Imaging: JAN 2021 LUMBAR MRI: HISTORY: PAIN. TECHNIQUE: Multiplanar and multisequence MR images of the lumbar spine. IV Contrast. dosage and agent: None. # of images incl. paperwork: 137. COMPARISON: XR 10/21/2020. FINDINGS: VERTEBRAE: Vertebral body heights maintained. L4 vertebral body hemangioma. present. Bilateral L5 spondylolysis. Degenerative bone marrow endplate. changes of L5-S1. ALIGNMENT: Unchanged 10 mm anterolisthesis of L5-S1. CONUS: Normal morphology and position at L1. SOFT TISSUES: No paraspinal fluid collections. INTERVERTEBRAL DISCS: Multilevel degenerative changes with posterior disc. bulge osteophyte complexes and facet arthropathy. L1-2: Very mild central canal stenosis and right foraminal narrowing. L2-3:Minimal narrowing of thecal sac. Mild bilateral foraminal narrowing. L3-4: Minimal narrowing of the thecal sac. Moderate bilateral foraminal. narrowing. L4-5: No significant central canal stenosis. Mild left greater than right. foraminal narrowing. L5-S1: Loss of intervertebral disc height. No significant central canal. stenosis. Moderate-severe bilateral foraminal narrowing with bilateral L5. nerve root impingement. 0006 MRI/Spine Lumbar (Routine). IMPRESSION: . L5 spondylolysis with grade 1-2 spondylolisthesis. Multilevel degenerative disc disease as described above. . at 0935 . Reported and signed by: Nancy Skinner MD. . Electronically Signed: Nancy Skinner MD. . PMH/Recent major surgery: HTN. OTHER: PATIENT REPORTS DR. COYLE WANTS HIM TO HAVE ANOTHER BACK X-RAY TO SEE IF HE HAS MORE SLIPPAGE BUT HE HAS NOT DONE THAT YET. ALSO REPORTS DR. COYLE DID NOT ORDER PT. REC'D BACK BRACE FROM DR. COYLE'S OFFICE WEDNESDAY AND HE FEELS IT HAS HELPED. - Balance/Special Test Scores Oswestry Low Back Score: 14 - Goals Goal Time Frame: 4-6 Weeks - Anticipated Interventions Thank you for the opportunity to evaluate your patient. For Medicare and Medicare HMO plans, please review the plan of care and approve it. It will need to be FAXED BACK to us at [phone] for Medicare purposes. For Medicare only, by signing this I certify the plan of care. Please let me know if there are questions or concerns regarding this plan of care. Physician Signature: Da te:
--- NOTE | 2022-05-12 09:57 | HP.PT.NRP ---
LUPIS RAMIREZ was seen in my office for initial evaluation on 04/06/22. The following Plan of Care was established for this patient: This patient was last seen in our office 04/06/22. Pertinent comments regarding their Physical therapy will appear below: This patient has not returned to Physical Therapy and is appropriate to return to MD for further follow-up as needed. At this point I will be discontinuing this patient from physical therapy. I would be happy to see this patient again in the future if found appropriate by the physician. Thank you! Pauline Brownlee, PT, Cert MDT Balance/Gait/Functional tests - Balance/Special Test Scores Oswestry Low Back Score: 14
== END 2022-04-06 19:00 | disposition home or self-care (01) ==
LOC: PT 11:00
PROVIDERS: PCP Family Medicine; Referring Provider Orthopaedic Surgery; Visit Provider Orthopaedic Surgery
DX: M43.17 Spondylolisthesis, lumbosacral region (principal)

== ENCOUNTER → 2022-04-07 | Outpatient (CLI) | payer OTHER, SELFPAY ==
--- NOTE | 2022-04-07 16:40 | RAD_ITS ---
EXAM: XR LUMBOSACRAL SPINE, 2 OR 3 VIEWS CLINICAL INDICATION: pain TECHNIQUE: Frontal and lateral views of the lumbar spine and sacrum. This report was created using [employer] report generation technology. COMPARISON: 10/21/2020 FINDINGS: VERTEBRAE: There is stable anterior spondylolisthesis of L5 on S1 of 9 mm. There appears to be a pars defect at L5. Preserved vertebral body height. No fracture. Preservation of the normal lumbar lordosis. No significant facet arthropathy. DISC SPACES: There is disc space narrowing at L5-S1. GASTROINTESTINAL TRACT: Unremarkable as visualized. Included bowel gas pattern is non-obstructive. RAD/Lumbar Spine 2 or 3 Views IMPRESSION: Degenerative changes at L5-S1 with disc space narrowing. There is also anterior spondylolisthesis of L5 and S1 which is stable from the reference exam. There are no acute osseous abnormalities. Electronically Signed: Eduardo Sparks MD at 19:08 EST ,
== END | disposition home or self-care (01) ==
LOC: RAD 16:35
PROVIDERS: PCP Family Medicine; Referring Provider Orthopaedic Surgery; Visit Provider Orthopaedic Surgery
DX: M43.17 Spondylolisthesis, lumbosacral region (principal)
CPT/HCPCS: 72100

== ENCOUNTER 2023-01-25 15:54 | Emergency (ER) | payer OTHER, SELFPAY ==
[2023-01-25 15:55] VITALS: BP 139/74; PULSE 65; RESP 14; TEMP 37.2; O2SAT 98; BMI 31.3
--- NOTE | 2023-01-25 16:31 | EX.ED.DYSGE1 ---
HPI History of Present Illness Chief Complaint: Dizziness Detail of Chief Complaint: Vertigo Onset/Context/Timing Onset: Today, Hours and Weeks (Episode last week as well) Context: Sudden Onset Timing: Intermittent Quality: Objects moving Location: Was in the basement with onset Current Severity: Gone Maximum Severity: Severe Worsened by: Change in position Relieved by: Remaining still and eyes closed Associated Symptoms Associated Symptoms: Nausea Narrative Narrative: Patient is a 60-year-old male with history of vertigo. He also has history of hypertension on multiple antihypertensive meds. He was in the basement when he developed abrupt onset of vertigo. He feels as if the fall was going up and down a set of [id number]. He denies headache. Nuys double vision, blurred vision or loss of vision. He has chronic tinnitus. He denies decreased hearing. He denies rhinorrhea, congestion or postnasal drainage. He denies trouble with speech or swallowing. He denies cardiac or respiratory symptoms. He reports nausea otherwise he has no GI symptoms. He denies urologic symptoms. He denies paresthesia, anesthesia or motor weakness of the upper or lower extremities. He denies problems with fine coordination or movement Prior similar symptoms: Yes Recent Illness/Hospitalization: No PFSH PFSH Medical History Chest pain Essential (primary) hypertension GERD (gastroesophageal reflux disease) History of tobacco use Incomplete right bundle branch block Home Medications garlic 5,000 mcg tablet 5,000 mcg PO DAILY 01/04/17 [History Last Taken Unknown] hydrochlorothiazide 25 mg tablet 25 mg PO DAILY 01/04/17 [History Last Taken 11/29/19] metoprolol tartrate 100 mg tablet 100 mg PO BID 01/04/17 [History Last Taken 11/29/19] amlodipine 5 mg tablet (Norvasc) 5 mg PO DAILY #90 tabs 11/21/19 [Rx Last Taken Unknown] meloxicam 7.5 mg tablet 7.5 mg PO DAILY PRN Pain 12/31/20 [History Last Taken Unknown] losartan 100 mg tablet 100 mg PO DAILY #90 tabs 08/20/22 [Rx Last Taken Unknown] Allergy/AdvReac Type Severity Reaction Status Date / Time No Known Allergies Allergy Verified 01/25/23 15:55 Family History Father CAD (coronary artery disease) Hypertension Heart disease Myocardial infarction Macular degeneration Mother CAD (coronary artery disease) Heart disease Diabetes Breast cancer Brother Hypertension Surgical History H/O tooth extraction History of colonoscopy (01/2017) History of tonsillectomy and adenoidectomy Social History household members: children housing: house current occupational status: employed current occupation: [employer] with [employer] [facility] [employer] pets and animals: Yes pets and animals: cat(s), dog(s) and bird(s) Smoking Status: Former smoker alcohol intake: never substance use type: does not use what type of physical activity do you participate in: none do you feel safe at home: Yes ROS ROS ED Constitutional Constitutional ED: Denies chills, fever(s), subjective, sweats or weight loss Eyes Eyes: Denies blurry vision, change in vision or diplopia ENT ENT ED: Denies ear pain, rhinorrhea or sore throat Cardiovascular Cardiovascular: Denies chest pain or palpitations Respiratory/Chest Respiratory/Chest: Denies cough, dyspnea or dyspnea on exertion Gastrointestinal Gastrointestinal: Reports nausea; Denies abdominal pain, diarrhea, melena or vomiting Genitourinary Genitourinary ED: Denies dysuria, hematuria or urinary frequency Musculoskeletal Musculoskeletal: Denies arthralgias, back pain, myalgias or neck pain Integumentary Denies rash Neurologic Neurologic: Denies headache(s) or weakness Hematologic/Lymphatic Hematologic/Lymphatic: Reports systems reviewed and no addt'l complaints, except as documented EXAM Physical Exam Const Vital Signs: 01/25/23 15:55 01/25/23 16:09 Temperature 98.9 F Temperature Source Temporal Pulse Rate 65 Respiratory Rate 14 Respiratory Effort Normal Respiratory Pattern Normal Blood Pressure 139/74 H Blood Pressure Mean 95 Pulse Ox 98 Oxygen Delivery Method Room Air Positive well nourished and well developed Constitutional Narrative: Became pale after Rj-Hallpike maneuver. General Appearance ED: well developed, NAD and pallor; Negative for cyanotic or diaphoretic HEENT Reports moist mucous membranes HEENT Narrative: Head is atraumatic and normocephalic. Ears are normal. External auditory canals normal. TMs are normal. Nares patent with no discharge. Posterior pharynx out erythema or exudate. Uvula is midline. There is no deviation tongue with protrusion. There is no dysphonia. There is no dysarthria. Eyes PERRL and EOMs intact bilaterally Eyes Narrative: No central gaze nystagmus. General Eye ED: Yes scleral icterus; Negative for pale conjunctiva Neck no lymphadenopathy, supple and no JVD Neck Narrative: There is no right or left lateral. Chest Wall inspection of chest normal and palpation of chest normal Resp normal respiratory effort and clear to auscultation bilaterally Cardio regular rate, regular rhythm, S1 normal heart sound, S2 normal heart sound and no murmurs GI normal to inspection, nondistended, normoactive bowel sounds, non-tender, non-distended and no masses; Negative for hepatosplenomegaly Extremity normal to inspection Extremity Narrative: There is no acrocyanosis. There is no clubbing. Neuro oriented x3, CN's II-XII intact bilaterally and no sensory deficits noted Neuro Narrative: There is no clonus or Babinski sign. There is no dysmetria. The eye askew test and the hint test were both negative. Rj-Hallpike maneuver was positive both left and right. The nystagmus did fatigue. Sensorium / Orientation: alert Motor Exam: strength 5/5 throughout Psych mental status grossly normal Skin no rashes or lesions noted, no wounds and skin turgor normal General Skin Exam: elasticity normal and pallor; Negative for jaundice MDM MDM MDM Narrative Medical decision making narrative: With a negative neurologic test other than a positive Rj-Hallpike maneuver which reproduces symptoms and the nystagmus fatigue will perform Dell maneuver. Imaging is not indicated at this time. Patient was treated with Zofran ODT since he is nauseous and suspect his nauseousness will be worse after the Dell maneuver. Treatment and Re-Evaluation :: Was performed. Patient had no symptoms. He presently is symptom-free. He is now in an upright position with his head and 20 degrees of flexion. Will reassess in 5 minutes. Patient was reassessed at 1710. His symptoms resolved. Patient be discharged to home. Discharge Plan Triage Chief Complaint: Dizziness ED Provider: Hemal Reddy Dx/Rx/DC Orders Clinical Impression: Benign paroxysmal positional vertigo due to bilateral vestibular disorder Instructions: ED BPV Vertigo Prescriptions: No Action meloxicam 7.5 mg tablet 7.5 mg PO DAILY PRN (Reason: Pain) metoprolol tartrate 100 MG tablet 100 mg PO BID hydrochlorothiazide 25 MG tablet 25 mg PO DAILY garlic 5,000 MCG tablet 5,000 mcg PO DAILY amlodipine [Norvasc] 5 mg tablet 5 mg PO DAILY Qty: 90 3RF losartan 100 mg tablet 100 mg PO DAILY Qty: 90 3RF Primary Care Provider: Dayami Mata Referrals: Dayami Mata MD [Primary Care Provider] - As Needed Disposition Disposition: Home, Self Care
[2023-01-25] MEDS: Ondansetron ODT 4 MG Tablet PO (16:33)
== END 2023-01-25 17:15 | disposition home or self-care (01) ==
PROVIDERS: Emergency Provider Emergency Medicine; PCP Family Medicine; Visit Provider Emergency Medicine
DX: H81.10 Benign paroxysmal vertigo, unspecified ear (principal); I10 Essential (primary) hypertension; Z87.891 Personal history of nicotine dependence; Z79.899 Other long term (current) drug therapy
CPT/HCPCS: 99282

== ENCOUNTER → 2023-07-23 | Outpatient (CLI) | payer OTHER, SELFPAY ==
[2023-07-24 07:02] LABS: AST(SGOT) 27 U/L (15-37); Alanine Aminotransfer ALT/SGPT 66 U/L (16-61); Albumin, Serum 4.1 g/dL (3.2-5.0); Alkaline Phosphatase 91 U/L (45-117); Bilirubin, Direct 0.28 mg/dL (0.00-0.30); Cholesterol 136 mg/dL (200); Globulin 3.3 g/dL (2.2-4.2); High Density Lipoprotein 48 mg/dL; Protein, Total 7.4 g/dL (6.4-8.2); Triglycerides 71 mg/dL; Very Low Density Lipoprotein 14 mg/dL (5-40)
== END | disposition home or self-care (01) ==
LOC: LAB 07:02
PROVIDERS: PCP Family Medicine; Referring Provider Internal Medicine Cardiovascular Disease; Visit Provider Internal Medicine Cardiovascular Disease
DX: E78.5 Hyperlipidemia, unspecified (principal)
CPT/HCPCS: 36415; 80061; 80076

== ENCOUNTER → 2024-11-09 | Outpatient (CLI) | payer OTHER, SELFPAY ==
[2024-11-09 10:57] LABS: AST(SGOT) 21 U/L (<=37); Alanine Aminotransfer ALT/SGPT 29 U/L (<=46); Albumin, Serum 4.3 g/dL (3.4-4.8); Alkaline Phosphatase 89 U/L (40-129); Bilirubin, Direct 0.39 mg/dL (0.00-0.30); Cholesterol 177 mg/dL (<=200); Globulin 2.5 g/dL (2.2-4.2); Low Density Lipoprotein Calc. 102 mg/dL; PSA,Total- Diagnostic 2.14 ng/mL (0.00-4.00); Triglycerides 110 mg/dL; Very Low Density Lipoprotein 22 mg/dL (5-40); cholesterol:hdl ratio screen 3.32
== END | disposition home or self-care (01) ==
PROVIDERS: Physician Assistant Medical; PCP Family Medicine; Referring Provider Family Medicine; Visit Provider Family Medicine
DX: R73.03 Prediabetes (principal)
CPT/HCPCS: 36415; 80061; 80076; 83036; 84153

== ENCOUNTER → 2024-11-16 | Outpatient (CLI) | payer OTHER, SELFPAY ==
[2024-11-28 11:09] LABS: Dopamine, Pl <10.0 pg/mL (0.0-36.7); Epinephrine, Pl 64.0 pg/mL (0.0-55.4); Norepinephrine, Pl 296 pg/mL (115-524)
== END | disposition home or self-care (01) ==
LOC: LAB 15:11
PROVIDERS: PCP Family Medicine; Referring Provider Physician Assistant Medical; Visit Provider Physician Assistant Medical
DX: I10 Essential (primary) hypertension (principal)
CPT/HCPCS: 36415; 82384; 84244

== ENCOUNTER 2024-11-24 04:40 | Emergency (ER) | payer OTHER, SELFPAY ==
[2024-11-24 04:41] VITALS: BP 159/97; PULSE 71; RESP 18; TEMP 36.3; O2SAT 98; BMI 33.7
[2024-11-24 04:44] VITALS: BP 159/97; PULSE 75; RESP 18; TEMP 36.3; O2SAT 98
--- NOTE | 2024-11-24 05:00 | CT_ITS ---
PROCEDURE: BRAIN/HEAD WITHOUT CONTRAST 11/24/2024 REASON FOR EXAM: DIZZINESS TECHNIQUE: Procedure Code: CTBR Modality: CT Procedure: BRAIN/HEAD WITHOUT CONTRAST Coronal and Sagittal reconstruction series were provided. One or more dose reduction techniques were used (e.g., Automated exposure control, adjustment of the mA and/or kV according to patient size, use of iterative reconstruction technique. RADIATION DOSE SUMMARY: CTDI Vol 44.99 mGy DLP :846.73 mGycm COMPARISON: 11-Jul-2021 FINDINGS: The visualized brain parenchyma shows normal appearance. No focal parenchymal abnormalities are demonstrated. Escobar-white matter differentiation is maintained. Normal CT appearance of the posterior fossa structures. No intracerebral or extra-axial hemorrhage. No midline shifts or deformity. Normal size and configuration of the cerebral ventricles. Mild asymmetry of the lateral ventricles, possibly developmental. Prominent fronto-parietal extra-axial CSF spaces. No definite calvarial fractures. The osseous structures in the skull base are unremarkable. Paranasal sinuses are unremarkable. CT/Brain/Head without Contrast IMPRESSION: No intracerebral or extra-axial hemorrhage. No acute cerebrovascular insult. If clinical symptoms persist, further evaluati on with MRI may be considered as clinically warranted. Reading [facility]
--- NOTE | 2024-11-24 05:02 | EX.ED.DYSGE1 ---
HPI History of Present Illness Chief Complaint: Dizziness Informant: patient Narrative Narrative: Patient is a 64-year-old male with past medical history of hypertension hyperlipidemia and CAD. He states he went to bed normally and then awoke roughly an hour prior to arrival. He states he awoke and felt immediately dizzy. He describes the dizziness as a sense of motion and stated it made him very nauseous. He states he went to the bathroom as he felt he was going to vomit. He states he was unsure if maybe he had food poisoning as he also thought he had to have a bowel movement. He states he sat on the toilet but did not produce really any stool and the nausea continue with just dry heaves. He states the dizziness seems to improve with rest but as soon as he looks around or moves that it returns. He states he is unsure if this is related to his hypertension or could be related to his history of coronary artery disease. He states he has had vertigo in the past and this does feel somewhat similar nature but he also feels it is more severe/intense. Therefore he presents to the ER for evaluation [facility] Medical History Stage 2 hypertension Cellulitis of left lower leg Contact dermatitis of lower leg Incomplete right bundle branch block Essential (primary) hypertension GERD (gastroesophageal reflux disease) Chest pain History of tobacco use Home Medications ?Medication ?Instructions ?Recorded ?Last Taken ?Type hydrochlorothiazide 25 mg tablet 25 mg PO DAILY 01/04/17 11/29/19 History coQ10 (ubiquinol) 100 mg capsule 100 mg PO DAILY 08/02/23 Unknown History (Qunol Zane CoQ10) ezetimibe 10 mg tablet (Zetia) 10 mg PO QDAY #90 tabs 07/04/24 Unknown Rx losartan 100 mg tablet 100 mg PO DAILY #90 tabs 09/06/24 Unknown Rx amlodipine 10 mg tablet 10 mg PO DAILY #90 tabs 11/02/24 Unknown Rx labetalol 100 mg tablet 100 mg PO BID #60 tabs 11/09/24 Unknown Rx magnesium 200 mg tablet 200 mg PO QDAY 11/09/24 Unknown History diazepam 5 mg tablet (Valium) 5 mg PO TID PRN vertigo 5 days #15 11/24/24 Unknown Rx tabs ondansetron 4 mg disintegrating 4 mg PO TID PRN nausea and 11/24/24 Unknown Rx tablet vomiting #21 tabs Allergy/AdvReac Type Severity Reaction Status Date / Time rosuvastatin (From Crestor) AdvReac Intermediate muscle Verified 11/24/24 04:41 aches Family History Father CAD (coronary artery disease) Hypertension Heart disease Myocardial infarction Macular degeneration Mother CAD (coronary artery disease) Heart disease Diabetes Breast cancer Brother Hypertension Surgical History H/O tooth extraction History of colonoscopy (01/2017) History of tonsillectomy and adenoidectomy Social History household members: children housing: house current occupational status: employed current occupation: [employer] with [employer] pets and animals: Yes pets and animals: cat(s), dog(s) and bird(s) Smoking Status: Former smoker how long ago did patient quit smokin years ago alcohol intake: never substance use type: does not use what type of physical activity do you participate in: none do you feel safe at home: Yes ROS ROS ED Constitutional Constitutional ED: Denies chills or fever(s) Eyes Eyes: Denies blurry vision or change in vision ENT ENT ED: Denies sore throat Cardiovascular Cardiovascular: Denies chest pain, palpitations or racing heartbeat Respiratory/Chest Respiratory/Chest: Denies cough or dyspnea Gastrointestinal Gastrointestinal: Reports nausea; Denies abdominal pain, diarrhea or vomiting Genitourinary Genitourinary ED: Denies dysuria Musculoskeletal Musculoskeletal: Denies back pain, myalgias or neck pain Integumentary Denies rash Neurologic Neurologic: Reports other Details: Positive dizziness ; Denies headache(s) Hematologic/Lymphatic Hematologic/Lymphatic: Denies easy bleeding or easy bruising EXAM Physical Exam Const Vital Signs: 11/24/24 04:41 11/24/24 04:44 11/24/24 05:40 Temperature 97.3 F L 97.3 F L 97.6 F L Temperature Source Oral Oral Oral Pulse Rate 71 75 78 Respiratory Rate 18 18 18 Blood Pressure 159/97 H 159/97 H 145/81 H Blood Pressure Mean 117 117 102 Pulse Ox 98 98 98 Oxygen Delivery Method Room Air Room Air Room Air Positive well nourished and well developed General Appearance ED: well developed; Negative for pallor HEENT HEENT Narrative: Normocephalic atraumatic No tongue or lip swelling no oral lesions no airway edema or compromise; no secondary findings in the posterior pharynx to suggest infection Bilateral canals and TMs are normal Eyes PERRL and EOMs intact bilaterally General Eye ED: Negative for scleral icterus Neck supple and no JVD Resp normal respiratory effort and clear to auscultation bilaterally Cardio regular rate and regular rhythm Rate: other Other Details: Radial and carotid pulses are equal and symmetric No carotid bruit noted GI normal to inspection, nondistended, normoactive bowel sounds, non-tender, non-distended and no masses GI Narrative: No voluntary guarding or rigidity or pulsatile mass No peritoneal signs Auscultation: normoactive bowel sounds Palpation: soft Extremity normal to inspection Neuro oriented x3, CN's II-XII intact bilaterally and no sensory deficits noted Neuro Narrative: GCS of 15 Cranial nerves II through XII are grossly intact without focal neurologic deficit No pronator drift no dysmetria no truncal ataxia NIH stroke scale score of 0 Horizontal nystagmus is noted bilaterally Positive Hallpike Rj exam on right Sensorium / Orientation: alert Motor Exam: strength 5/5 throughout Psych Mood & Affect: anxious Skin no rashes or lesions noted Skin Narrative: Capillary refill is less than 3 seconds General Skin Exam: Negative for jaundice or pallor MDM MDM MDM Narrative Medical decision making narrative: Patient arrived to the ER hypertensive but has a past medical history of this. He reported dizziness which he described more as a sense of motion that worsened with position change. It also would come on quickly and cause nausea. This history coupled with his physical exam of horizontal nystagmus and positive Hallpike Rj exam is most consistent with peripheral vertigo. However in order to ensure that the dizziness is not related to an abnormal cardiac rhythm cardiac event such as ACS or due to brain mass or brain bleed I did like to perform EKG placed the patient on kettle hand and perform a noncontrast head CT. Labs were obtained to check for signs of acute blood loss anemia acute kidney injury or clinically significant electrolyte abnormality. EKG was sinus rhythm without STEMI or ischemic changes. The patient was kept on the kettle hand and there was no cardiac dysrhythmia noted. Head CT revealed no acute bleed or mass. Lab work revealed no acute finding. After treatment with IV fluid as well as Zofran and Valium the patient did have improvement of his dizziness and his neurologic exam remained stable. Therefore at this time I do not feel the need for further workup or admission as his history and exam and workup indicate this is peripheral vertigo not central and he is otherwise safe for discharge History & Record Review Discussion w/independent historian: Patient Lab Data Attestation: I reviewed the patient's lab results. Labs: Laboratory Results - last 24 hr 11/24/24 04:50 WBC 8.0 RBC 5.10 Hgb 15.8 Hct 45.4 MCV 89.0 MCH 31.0 MCHC 34.8 RDW Std Deviation 39.5 RDW Coeff of [place] 12.0 Plt Count 246 MPV 9.3 Immature Gran % (Auto) 0.400 Neut % (Auto) 56.7 Lymph % (Auto) 25.9 Wheeler % (Auto) 13.1 H Eos % (Auto) 3.3 Baso % (Auto) 0.6 Absolute Neuts (auto) 4.5 Absolute Lymphs (auto) 2.06 Nucleated RBC % 0 Sodium 140 Potassium 3.4 Chloride 102 Carbon Dioxide 23.5 Anion Gap 15 BUN 23 H Creatinine 0.89 Estim Creat Clear Calc 93.34 Est GFR (MDRD) Non-Af 96 BUN/Creatinine Ratio 25.5 H Glucose 131 H Calcium 9.8 Magnesium 2.3 H Troponin T High Sens 6 Radiography Diagnostic Testing: Clinical Impression(s) from Imaging Studies Brain CT 11/24/24 05:00 IMPRESSION: No intracerebral or extra-axial hemorrhage. No acute cerebrovascular insult. If clinical symptoms persist, further evaluation with MRI may be considered as clinically warranted. Reading Location: [place] [address] Discharge Plan Triage Chief Complaint: Dizziness ED Provider: Rowdy Hansen Dx/Rx/DC Orders Clinical Impression: Peripheral vertigo, Hyperlipidemia, Essential (primary) hypertension, CAD (coronary artery disease) Instructions: Vestibular Rehab Therapy, ED Vertigo, Unspecified Prescriptions: New ondansetron 4 mg tablet,disintegrating 4 mg PO TID PRN (Reason: nausea and vomiting) Qty: 21 0RF diazepam [Valium] 5 mg tablet 5 mg PO TID PRN (Reason: vertigo) 5 Days Qty: 15 0RF No Action ezetimibe [Zetia] 10 mg tablet 10 mg PO QDAY Qty: 90 3RF magnesium 200 mg tablet 200 mg PO QDAY labetalol 100 mg tablet 100 mg PO BID Qty: 60 6RF hydrochlorothiazide 25 MG tablet 25 mg PO DAILY coQ10 (ubiquinol) [Qunol Zane CoQ10] 100 mg capsule 100 mg PO DAILY losartan 100 mg tablet 100 mg PO DAILY Qty: 90 3RF amlodipine 10 mg tablet 10 mg PO DAILY Qty: 90 3RF Primary Care Provider: Dayami Mata Referrals: Dayami Mata MD [Primary Care Provider, Family Practice] Activity Restrictions/Additional Instructions: Your workup today did not reveal signs of acute stroke or acute heart damage abnormal heart rhythm or brain bleed. This indicates her symptoms are most likely due to peripheral vertigo. Please take the prescribed medication as directed to help control symptoms. You may also discuss HEENT referral from your family doctor to further assess any other cause of your vertigo such as M?ni?re's disease. You may try the outpatient vertigo exercises such as the Dell maneuver to see if this helps speed resolution of symptoms as well. Return to the ER should you have any further concerns Print Language: Croatian Disposition Disposition: Home, Self Care
[2024-11-24 05:10] LABS: Hematocrit 45.4 % (40-54); Hemoglobin 15.8 g/dL (13.0-16.5); Immature Granulocytes Count 0.030 X10^3/uL (0.0-0.0); Mean Corp Hgb Conc 34.8 g/dL (32-36); Mean Corpuscular Volume 89.0 fL (80-94); Mean Platelet Vol. 9.3 fl (6.2-12.0); NRBC Flagged by Analyzer 0 % (0-5); Platelet Count 246 K/mm3 (150-450); RBC Distribution Width CV 12.0 % (11.6-14.6); RBC Distribution Width SD 39.5 fl (35.1-43.9); Red Blood Count 5.10 M/mm3 (4.6-6.2); White Blood Count 8.0 K/mm3 (4.4-11.0)
--- OUTSIDE RECORDS SUMMARY | 2024-11-24 05:10 | XMS RPT_ITS | CCD ---
Author Organization [facility] Care Team Providers Care Electrical Assistant Name Role Phone Dr. Dayami Anderson Primary Care Provider [phone] Dr. Dayami Anderson Referring Provider [phone] Chuck HERRERA, BETZY Muro Attending Provider Dr. Taurus Coyle Attending Provider [phone] Dayami Anderson Primary Care Provider [phone] Dr. Dayami Anderson Referring Provider [phone] Taurus Coyle Attending Provider [phone] Dayami Anderson MD Primary Care Provider Dr. Dayami Anderson MD Referring Provider [phone] Karla Ca Attending Provider Dr. Dayami Anderson MD Primary Care Physician Dr. Dayami Anderson MD Referring Provider [phone] Karla Ca Attending Physician Dr. Dayami Anderson MD Attending Physician Karla Ca Attending Unavail able Dayami Anderson Referring Unavailable Dayami Anderson Primary Care Unavailable Karla Ca Attending Unavail able Dayami Anderson Referring Unavailable Dayami Anderson Primary Care Unavailable Dayami Anderson Primary Care Unavailable Karla Ca Attending Unavail able Dayami Anderson Referring Unavailable Karla Ca Attending Unavail able Karla Ca Referring Unavail able Dayami Anderson Primary Care Unavailable Dayami Anderson Primary Care Unavailable Assessment, Health Risk Attending Unavaila ble Assessment, Health Risk Referring Unavaila ble Dayami Anderson Attending Unavailable Dayami Anderson Referring Unavailable Esperanza Dayami Primary Care Unavailable Karla Ca Referring Unavail able Dayami Anderson Primary Care Unavailable Karla Ca Attending Unavail able Allergies Allergy Classification Reported Allergen(s) Allergy Type Date of Onset Reaction(s) Facility (3 sources) rosuvastatin Drug Allergy 07-04-2024 muscle aches [facility] (1 source) rosuvastatin Drug Allergy 11-09-2024 [facility] Repository Medications Current Medications Medication Drug Class(es) Dates Sig (Normalized) Sig (Original) amLODIPine 10 mg oral tablet (17 sources) Dihydropyridine Calcium Channel Davin Start: 11-02-2024 take 1 tablet by mouth once daily Amlodipine 10 mg tablet Active 10 mg PO DAILY 90 3 November 02, 2024 2:55pm Complies with drug therapy Start: 11-22-2018 End: 11-02-2024 take 1 tablet by mouth once daily Amlodipine (Norvasc) 5 mg tablet Discontinued 5 mg PO DAILY 90 3 November 21, 2019 4:51pm November 02, 2024 2:55pm ezetimibe 10 mg oral tablet (3 sources) Dietary Cholesterol Absorption Inhibitor Start: 07-04-2024 take 1 tablet by mouth once daily Ezetimibe (Zetia) 10 mg tablet Active 10 mg PO daily 90 3 July 04, 2024 12:00am Complies with drug therapy Garlic (8 sources) Non-Standardized Food Allergenic Extract Start: 01-04-2017 take 5000 ug by mouth once daily Garlic Active 5000 MCG PO DAILY January 04, 2017 12:10pm Start: 01-04-2017 End: 08-10-2023 take 1 tablet by mouth once daily Garlic 5,000 MCG tablet Discontinued 5000 ug PO DAILY January 04, 2017 1:00am August 10, 2023 5:37pm Start: 01-04-2017 take 5000 ug by mout h once daily Garlic Active 5000 MCG PO DAILY January 04, 2017 1:00am Start: 01-04-2017 take 5000 ug by mout h once daily Garlic Active 5000 MCG PO DAILY January 04, 2017 12:00am hydroCHLOROthiazide 25 mg oral tablet (8 sources) Thiazide Diuretic Start: 01-04-2017 take 1 tablet by mouth once daily Hydrochlorothiazide 25 MG tablet Active 25 mg PO DAILY January 04, 2017 1:00am Complies with drug therapy labetalol hydrochloride 100 mg oral tablet (1 source) beta-Adrenerg ic Davin Start: 11-09-2024 take 1 tablet by mouth twice daily Labetalol 100 mg tablet Active 100 mg PO TWICE A DAY 60 November 09, 2024 12:00am Complies with drug therapy Magnesium (1 source) Start: 11-09-2024 take 1 tablet by mouth once daily Magnesium 200 mg tablet Active 200 mg PO daily November 09, 2024 12:00am Complies with drug therapy ubiquinol 100 mg oral capsule (3 sources) Start: 08-02-2023 take 1 capsule by mouth once daily Coq10 (Ubiquinol) (Qunol Zane Coq10) 100 mg capsule Active 100 mg PO DAILY August 02, 2023 12:00am Complies with drug therapy Completed/Discontinued Medications Medication Drug Class(es) Dates Sig (Normalized) Sig (Original) azithromycin 250 mg oral tablet (3 sources) Macrolide Antimicrobial Start: 08-10-2023 End: 07-04-2024 Azithromycin 250 mg tablet Discontinued 250 mg PO daily 6 August 10, 2023 12:00am July 04, 2024 2:00pm 2 tablets today, then 1 tablet daily on days 2 through 5 candesartan cilexetil 32 mg oral tablet (8 sources) Angiotensin 2 Receptor Davin Start: 11-08-2018 End: 11-22-2018 take 1 tablet by mouth once daily Candesartan 32 mg tablet Discontinued 32 mg PO DAILY 90 November 08, 2018 12:00am November 22, 2018 1:13pm carvedilol 25 mg oral tablet (2 sources) alpha-Adrenergic Davin, beta-Adrenergic Davin Start: 10-04-2024 End: 11-09-2024 take 1 tablet by mouth every twelve hours at mealtime Carvedilol (Coreg) 25 mg tablet Discontinued 25 mg PO Q12H 180 3 October 04, 2024 12:00am November 09, 2024 2:16pm must administer with a meal/food losartan potassium 100 mg oral tablet (20 sources) Angiotensin 2 Receptor Davin Start: 11-22-2019 End: 09-06-2024 take 1 tablet by mouth once daily Losartan 100 mg tablet Discontinued 100 mg PO DAILY 90 3 August 26, 2023 8:21am September 06, 2024 11:35am Start: 04-13-2017 End: 11-08-2018 take 1 tablet by mouth once daily Losartan 100 mg tablet Discontinued 100 mg PO daily 90 4 April 13, 2017 5:15pm November 08, 2018 3:11pm Start: 01-04-2017 End: 04-13-2017 take 1 tablet by mouth at bedtime Losartan 25 MG tablet Discontinued 25 mg PO AT BEDTIME January 04, 2017 1:00am April 13, 2017 5:15pm meclizine hydrochloride 25 mg chewable tablet (8 sources) Antiemetic Start: 07-11-2021 End: 12-31-2021 take 1 tablet by mouth once daily as needed for dizziness Meclizine (Antivert) 25 mg tablet,chewable Discontinued 25 mg PO DAILY as needed for dizziness 10 July 11, 2021 12:00am December 31, 2021 2:02pm meloxicam 7.5 mg oral tablet (8 sources) Nonsteroidal Anti-inflammatory Drug Start: 12-31-2020 End: 11-09-2024 take 1 tablet by mouth once daily as needed for pain Meloxicam 7.5 mg tablet Discontinued 7.5 mg PO DAILY as needed for Pain December 31, 2020 1:00am November 09, 2024 1:50pm metoprolol tartrate 100 mg oral tablet (8 sources) beta-Adrenergic Davin Start: 01-04-2017 End: 10-04-2024 take 1 tablet by mouth twice daily Metoprolol Tartrate 100 MG tablet Discontinued 100 mg PO TWICE A DAY January 04, 2017 1:00am October 04, 2024 2:01pm predniSONE 10 mg oral tablet (3 sources) Start: 08-10-2023 End: 07-04-2024 take 1 tablet by mouth twice daily Prednisone 10 mg tablet Discontinued 10 mg PO TWICE A DAY August 10, 2023 12:00am July 04, 2024 2:01pm rosuvastatin calcium 5 mg oral tablet (6 sources) HMG-CoA Reductase Inhibitor Start: 08-02-2023 End: 07-04-2024 take 1 tablet by mouth once daily Rosuvastatin 5 mg tablet Discontinued 5 mg PO DAILY 07 01August 02, 2023 12:00am July 04, 2024 2:20pm Start: 05-03-2023 End: 08-02-2023 take 1 tablet by mouth once daily Rosuvastatin 20 mg tablet Discontinued 20 mg PO DAILY 07 07May 03, 2023 12:00am August 02, 2023 3:35pm traMADol hydrochloride 50 mg oral tablet (8 sources) Opioid Agonist Start: 11-04-2020 End: 12-31-2020 take 1 tablet by mouth every four to six hours as needed Tramadol 50 mg tablet Discontinued 50 mg PO .q4-6h as needed November 04, 2020 12:00am December 31, 2020 3:26pm Problems Problem Classification Problem Date Documented Date Episodic/Chronic Allergic reactions (3 sources) Unspecified contact dermatitis, unspecified cause; Translations: [Contact dermatitis of lower leg] 08-10-2023 Episodic Conditions associated with dizziness or vertigo (20 sources) Dizziness; Translations: [Dizziness and giddiness] 07-19-2021 Episodic Conduction disorders (10 sources) Incomplete right bundle branch block; Translations: [Unspecified right bundle-branch block] Onset: 11-09-2024 10-05-2019 Chronic Disorders of lipid metabolism (17 sources) Hyperlipidemia; Translations: [Hyperlipidemia, unspecified] Onset: 07-04-2024 Chronic Comment on above: The patient has pure hyperlipidemia with an LDL cholesterol of 129 has been around 100 previously. His total cholesterol is 196 his triglycerides are acceptable and his HDL is 48.He does have a fasting blood sugar 117 on the recent check. He is a remote smoker quit 8 years ago. He has a family history of coronary disease and he is hypertensive on multiple drugs for control. Disorders of teeth and jaw (16 sources) Loss of teeth due to extraction; Translations: [Partial loss of teeth, unspecified cause, unspecified class] 12-30-2020 Episodic Essential hypertension (19 sources) Essential hypertension; Translations: [Essential (primary) hypertension] Onset: 11-09-2024 Chronic Comment on above: Patient's blood pres sure is well-controlled on multiple medications Nonspecific chest pain (1 source) Chest pain; Translations: [Chest pain, unspecified] 11-09-2024 Episodic Other acquired deformities (8 sources) Spondylolisthesis L5/S1 level; Translations: [Spondylolisthesis, lumbosacral region] 12-30-2020 Episodic Other acquired deformities (2 sources) Spondylolisthesis, lumbosacral region; Translations: [Spondylolisthesis] 02-23-2022 Episodic Skin and subcutaneous tissue infections (3 sources) Cellulitis of lower leg; Translations: [Cellulitis of left lower limb] 08-10-2023 Episodic Results Test Name Value Interpretation Reference Range Facility Coronary Angiography CTon Coronary Angiography CT [facility] [address] [place] [address] 11/15/24 1614 MR#: [id number] Acct: [id number] Name: LUPIS RAMIREZ Rep #: [id number] : 1960 64 From: Calvin Yanes MD PCP: Dr. Dayami Anderson MD Status:REG REF Y Location: CT Calcium Scoring Date of Study:: 11/15/24 Indications Indications: Hypertension Coronary Calcium Scoring: High-resolution Computed Tomographic imaging of the chest was performed on [11/15/2024], with particular attention paid to the coronary arteries. Images from the examination were analyzed for the presence and extent of coronary artery calcification , using coronary calcium quantification software. The patient tolerated the procedure well and there were no complications. The results of the coronary calcification analysis are provided below. Findings Coronary Artery Left Main (LM): 0 Left Anterior Descending (LAD): 49 Left Circumflex (LCX): 70.7 Right Coronary Artery (RCA): 118 Total Agatston Score: 237.7 Percentile Rankin-75 Calcium Scoring Interpretation: Different methods to categorize the overall amount of coronary plaque. Overall amount CAC SIS Visual of coronary plaque P1 Mild -100 <2 1-2 vessels with mild amount of plaque P2 Moderate 101-300 3-4 1-2 vessels with moderate amount, 3 vessels with mild amount of plaque P3 Severe 301-999 5-7 3 vessels with moderate amount, 1 vessel with severe amount of plaque P4 Extensive >1000 >8 2-3 vessels with severe amount of plaque Calcium Score: Moderate: 1-2 vessels w/moderate amt, 3 vessels w/mild amt of plaque Conclusion: 3 vessels with mild amount of plaque disease noted. 11/15/24 1615 Date Calvin Yanes MD Cosigner Signature (if applicable): Date CC: Dr. Calvin Yanes MD; Dr. Dayami Anderson MD; CORNELL Hill Signed Normal [facility] Limited Chest CT Cardiac Onl yon 11-15-[address] Cardiac Only [facility] Imaging Services [address] [place] [id number] Cardiac Only MR#: [id number] Acct: [id number] Name: LUPIS RAMIREZ Rep #: [id number] : 1960 M 64 From: Jose Alberto Mane PCP: Dr. Dayami Anderson MD Status: REG REF Study: Limited Chest CT Cardiac Only Date of Exam: Exam# [id number] Ordering Dr: Karla Gooden PROCEDURE: LIMITED CHEST CT CARDIAC ONLY 11/15/2024 REASON FOR EXAM: HTN TECHNIQUE: Procedure Code: [id number] Modality: CT Procedure: LIMITED CHEST CT CARDIAC ONLY One or more dose reduction techniques were used (e.g., Automated exposure control, adjustment of the mA and/or kV according to patient size, use of iterative reconstruction technique). RADIATION DOSE SUMMARY: CTDlvol: 12.19 mGy DLP: 195.04 mGycm COMPARISON: None. CT/Limited Chest CT Cardiac Only IMPRESSION: Limited imaging of the lungs demonstrates no acute process. No pleural effusion or pneumothorax is seen in visualized areas. No adenopathy is noted. The visualized upper abdomen demonstrates no significant abnormality. Reading Location: [facility] CC: Dr. Dayami Anderson MD; CORNELL Hill Wet Inspector Optical Glass: Signed Normal [facility] Bilirubin directOrdered By: Karla Gooden on 11-09-2024 Bilirubin.direct [Mass/Vol] 0.39 mg/dL High 0.00-0.30 [facility] Bilirubin, totalOrdered By: Karla Gooden on 11-09-2024 Bilirubin [Mass/Vol] 1.07 mg/dL 0.00-1.30 [facility] Calculated very low density lipoprotein (VLDL) cholesterol measurementOrdered By: Karla Gooden on 11-09-2024 Calculated very low density lipoprotein (VLDL) cholesterol measurement 22 mg/dL 5-40 [facility] Cardiology Visit Reporton Cardiology Visit Report [facility] [address] [place] [address] OFFICE VISIT Date of Service: 11/09/24 MR#: [id number] Acct: [id number] Name: LUPIS RAMIREZ Rep #: [id number] : 1960 Provider: CORNELL Philippe Age/Sex: 64/M Location: [facility] Status: Signed HPI HPI History of Present Illness Details: The patient is a 64-year-old male with drug-resistant HTN and spondylolisthesis presenting for follow-up of persistently elevated blood pressure and discussion of management options. He reports that his blood pressure has been elevated for approximately 10 years, with systolic values rarely below 130 mmHg despite adherence to a multi-drug regimen. Recent home readings have ranged from 134???156/84???95 mmHg, with a recent Wednesday morning measurement of 148 mmHg while relaxed at home. He expresses frustration with the lack of improvement despite lifestyle modifications, including a 30-lb weight loss in 2017, a healthy diet (including spinach salad 5 times per week), and smoking cessation. He notes that others with less healthy lifestyles often require fewer medications, which he finds discouraging. Current medications include carvedilol 25 mg BID, amlodipine 10 mg daily, HCTZ 25 mg daily, losartan 100 mg daily, and Zetia. He discontinued Zetia for 2 weeks due to nocturnal muscle cramps, but symptoms persisted. After resuming Zetia, the cramps resolved, leading him to believe they were unrelated to the medication. He also reports chronic numbness in one leg and his great toe, which he attributes to spondylolisthesis. He denies back pain but describes occasional morning episodes of a ???grabbing??? sensation in his back that resolves quickly and does not limit his daily activities. He has not yet completed a coronary calcium score, which is scheduled for next week. He has not undergone a renal ultrasound or had renin and aldosterone levels checked. He has not used a 24-hour ambulatory blood pressure monitor. Intake Vital Signs 10/04/24 13:31 11/09/24 07:56 11/09/24 14:25 Height 5 ft 7 in 5 ft 7 in Weight: 209 lb 210 lb BMI 32.7 32.8 BP 137/81 H 167/93 H 148/92 H Blood Pressure Location Lt brachial Lt brachial Position Sitting Sitting Respiration 16 18 Pulse 58 L 75 Pulse Source Monitor Monitor Pulse Oximetry (%) 95 Oxygen Delivery Method room air Intake Visit Reasons: 1 M Competency Evaluated Nurse Aide Required: No Accompanied by: Self Is patient in pain?: No Allergies rosuvastatin (From Crestor) Adverse Reaction (Intermediate, Verified 11/09/24 13:48) muscle aches Medications ???Medication ???Instructions ???Recorded ???Confirmed ???Type hydrochlorothiazide 25 mg tablet 25 mg PO DAILY 01/04/17 11/09/24 H istory coQ10 (ubiquinol) 100 mg capsule 100 mg PO DAILY 08/02/23 11/09/24 History (Qunol Zane CoQ10) ezetimibe 10 mg tablet (Zetia) 10 mg PO QDAY #90 tabs 07/04/24 Rx losartan 100 mg tablet 100 mg PO DAILY #90 tabs 09/06/24 11/09/24 Rx amlodipine 10 mg tablet 10 mg PO DAILY #90 tabs 11/02/24 1 Rx labetalol 100 mg tablet 100 mg PO BID #60 tabs 11/09/24 Rx magnesium 200 mg tablet 200 mg PO QDAY 11/09/24 11/09/24 H istory Ejection fraction %: 60 Have you fallen in the past year?: No Nurse's Note: Pt is very concerned about his rising BP. He brought a pamphlet today about a [employer] procedure that is for pt's with drug-resistant hypertension that he would like to discuss. Pt c/o a dull ache left-midsternal that comes and goes daily. Obtaining EKG for that purpose. Pt denied having edema, but had pitting edema in his ankles that I observed. [facility] Medical History Stage 2 hypertension Cellulitis of left lower leg Contact dermatitis of lower leg Incomplete right bundle branch block Essential (primary) hypertension GERD (gastroesophageal reflux disease) Chest pain History of tobacco use Surgical History H/O tooth extraction History of colonoscopy (01/2017) History of tonsillectomy and adenoidectomy Family History Father CAD (coronary artery disease) Hypertension Heart disease Myocardial infarction Macular degeneration Mother CAD (coronary artery disease) Heart disease Diabetes Breast cancer Brother Hypertension Social History household members: children housing: house current occupational status: employed current occupation: [employer] with [employer] and [employer] pets and animals: Yes pets and animals: cat(s), dog(s) and bird(s) Smoking Status: Former smoker how long ago did patient quit smokin years ago alcohol intake: never substance use type (more content not included)... Normal [facility] Hemoglobin A1con 11-09-2024 HbA1c (Bld) [Mass fraction] 6.0 % High <=5.6 [facility] Comment on above: Order Comment: LIVER LIPID GO TO BARBI AND A1C AND PSAD GO TO Todd ANDERSON Result Comment: Norm al < 5.7 % Prediabetic 5.7 - 6.4 % Diabetic >or= 6.5 % Please note range changes. Performed By: #### L 500.3400, L501.9985, L500.4100, L501.9940 #### [facility] [address] [place], [place], [id number] Hemoglobin A1c percentageOrd ered By: Karla Gooden on 11-09-2024 HbA1c (Bld) [Mass fraction] 6.0 % High <5.7 [facility] Comment on above: Normal < 5.7 % Predi abetic 5.7 - 6.4 % Diabetic >or= 6.5 % Please note range changes. LDL calc ser/plasOrdered By: Karla Gooden on 11-09-2024 Cholesterol in LDL [Mass/Vol] 102 mg/dL [facility] Comment on above: Lkregteubd=666-414 m g/dL & Higher Mrhj=861 mg/dL or greaterFriedwald Equation for LDL-C Laboratory - Chemistry and C hemistry - challengeOrdered By: Karla Gooden on 11-09-2024 AST [Catalytic activity/Vol] 21 U/L <38 [facility] Lipid Profileon 11-09-2024 CHOL:HDL 3.32 Normal [facility] Comment on above: Performed By: #### L 500.3400, L501.9985, L500.4100, L501.9940 #### [facility] [address] [place], [place], [id number] Cholesterol [Mass/Vol] 177 mg/dL Normal <=200 [facility] Comment on above: Result Comment: Chol esterol level, Desirable <200 mg/dL Borderline high cholesterol 200-239 mg/dL High cholesterol >=240 mg/dL Recommendations of the NCEP Adult Treatment Panel for the following risk-cutoff thresholds for the [place] population. Performed By: #### L 500.3400, L501.9985, L500.4100, L501.9940 #### [facility] [address] [place], [address] Cholesterol in HDL [Mass/Vol] 53 mg/dL Normal [facility] Comment on above: Result Comment: Angelica onal Cholesterol Education Program (NCEP) guidelines: <40 mg/dL: Low HDL-cholesterol (major risk factor for CHD) >= 60 mg/dL: High HDL-cholesterol (negative risk factor for CHD) HDL-cholesterol is affected by a number of factors, e.g. smoking, exercise, hormones, sex and age. Performed By: #### L 500.3400, L501.9985, L500.4100, L501.9940 #### [facility] [address] [place], [address] Cholesterol in LDL [Mass/Vol] 102 mg/dL Normal [facility] Comment on above: Result Comment: Bord tudmnp=322-830 mg/dL Higher Priw=001 mg/dL or greater Friedwald Equation for LDL-C Performed By: #### L 500.3400, L501.9985, L500.4100, L501.9940 #### [facility] [address] [place], [address] Cholesterol in VLDL [Mass/Vol] 22 mg/dL Normal 5-40 [facility] Comment on above: Performed By: #### L 500.3400, L501.9985, L500.4100, L501.9940 #### [facility] [address] [place], [address] Triglyceride [Mass/Vol] 110 mg/dL Normal [facility] Comment on above: Result Comment: The drugs N-Acetylcysteine and Metamizole may falsely depress this assay. Normal range: <150 mg/dL Borderline High: 150-199 mg/dL High: 200-499 mg/dL Very High: >500 mg/dL Performed By: #### L 500.3400, L501.9985, L500.4100, L501.9940 #### [facility] [address] [place], [address] Liver Profileon 11-09-2024 Albumin [Mass/Vol] 4.3 g/dL Normal 3.4-4.8 [facility] Comment on above: Performed By: #### L 500.3400, L501.9985, L500.4100, L501.9940 #### [facility] [address] [place], [address] ALK PHOS 89 U/L Normal 40-129 [facility] Comment on above: Performed By: #### L 500.3400, L501.9985, L500.4100, L501.9940 #### [facility] [address] [place], [address] ALT [Catalytic activity/Vol] 29 U/L Normal <=46 [facility] Comment on above: Performed By: #### L 500.3400, L501.9985, L500.4100, L501.9940 #### [facility] [address] [place], [address] AST [Catalytic activity/Vol] 21 U/L Normal <=37 [facility] Comment on above: Performed By: #### L 500.3400, L501.9985, L500.4100, L501.9940 #### [facility] [address] [place], [address] Bilirubin [Mass/Vol] 1.07 mg/dL Normal 0.00-1.30 [facility] Comment on above: Performed By: #### L 500.3400, L501.9985, L500.4100, L501.9940 #### [facility] [address] [place], [address] Bilirubin.direct [Mass/Vol] 0.39 mg/dL High 0.00-0.30 [facility] Comment on above: Performed By: #### L 500.3400, L501.9985, L500.4100, L501.9940 #### [facility] [address] [place], [address] Globulin (S) [Mass/Vol] 2.5 g/dL Normal 2.2-4.2 [facility] Comment on above: Performed By: #### L 500.3400, L501.9985, L500.4100, L501.9940 #### [facility] [address] [place], [address] T PROT 6.8 g/dL Normal 5.9-8.4 [facility] Comment on above: Performed By: #### L 500.3400, L501.9985, L500.4100, L501.9940 #### [facility] [address] [place], [address] PSA,Total- Diagnosticon 10-0 PSA, DIAGNOSTIC 2.14 ng/mL Normal 0.00-4.00 [facility] Comment on above: Result Comment: This test was performed using the [facility] tPSA method. Measured values of a patient??sample can vary depending on the testing procedure used. PSA values determined on patient samples by different testing procedures cannot be used interchangeably. If there is a change in PSA assays while monitoring therapy, sequential testing should be performed to confirm baseline values. Performed By: #### L 500.3400, L501.9985, L500.4100, L501.9940 #### [facility] [address] [place], [place], [address] Screening total cholesterol/ high density lipoprotein (HDL) cholesterol ratioOrdered By: Karla Gooden on 11-09-2024 Cholesterol.total/Tiffany sterol in HDL [Mass ratio] 3.32 {ratio} [facility] Serum globulin measurementOr dered By: Karla Gooden on 11-09-2024 Globulin (S) [Mass/Vol] 2.5 g/dL 2.2-4.2 [facility] Serum or plasma alanine dasilva otransferase (ALT) measurementOrdered By: Karla Gooden on 11-09-2024 ALT [Catalytic activity/Vol] 29 U/L <47 [facility] Serum or plasma albumin dianne urement (mass/volume)Ordered By: Karla Gooden on 11-09-2024 Albumin [Mass/Vol] 4.3 g/dL 3.4-4.8 [facility] Serum or plasma alkaline jayda sphatase measurementOrdered By: Karla Gooden on 11-09-2024 ALP [Catalytic activity/Vol] 89 U/L 40-129 [facility] Serum or plasma cholesterol in HDL measurement (mass/volume)Ordered By: Karla Gooden on 11-09-2024 Cholesterol in HDL [Mass/Vol] 53 mg/dL >40 [facility] Comment on above: National Cholesterol Education Program (NCEP) guidelines:<40 mg/dL: Low HDL-cholesterol (major risk factor for CHD)>= 60 mg/dL: High HDL-cholesterol (negative risk factor for CHD)HDL-cholesterol is affected by a number of factors, e.g. smoking, exercise, hormones, sex and age. Serum or plasma cholesterol measurement (mass/volume)Ordered By: Karla Gooden on 11-09-2024 Cholesterol [Mass/Vol] 177 mg/dL <201 [facility] Comment on above: Cholesterol level, D esirable <200 mg/dLBorderline high cholesterol 200-239 mg/dLHigh cholesterol >=240 mg/dLRecommendations of the NCEP Adult Treatment Panel for the following risk-cutoff thresholds for the [place] population. Total proteinOrdered By: Adal Gooden on 11-09-2024 Protein [Mass/Vol] 6.8 g/dL 5.9-8.4 [facility] Triglycerides measurementOrd ered By: Karla Gooden on 11-09-2024 Triglyceride [Mass/Vol] 110 mg/dL <199 [facility] Comment on above: The drugs N-Acetylcy steine and Metamizole may falsely depress this assay. Normal range: <150 mg/dLBorderline High: 150-199 mg/dLHigh: 200-499 mg/dLVery High: >500 mg/dL Cardiology Visit Reporton Cardiology Visit Report [facility] [address] [place] [address] OFFICE VISIT Date of Service: 10/04/24 MR#: [id number] Acct: [id number] Name: LUPIS RAMIREZ Rep #: [id number] : 1960 Provider: CORNELL Philippe Age/Sex: 64/M Location: [facility] [place] Status: Signed HPI HPI History of Present Illness Details: LUPIS RAMIREZ, is a 64 M with a history of hypertension and hyperlipidemia. From a cardiac standpoint, patient is doing well. He does not have any chest discomfort/heaviness/ tightness. His exercise tolerance is stable for his age. He does not have any worsening symptoms of shortness of breath. He denies any PND. He does not have any orthopnea. He does not have any symptoms of congestive heart failure. He does not have any palpitations that he is aware of. He does not have any lightheadedness or dizziness. He does not have any near-syncope or syncope. He does not have any lower extremity edema. He does not have any symptoms of claudication. he does have a feeling of fullness in his ears when he goes from a sitting to standing position. He is still having muscle cramps at night on the zetia. His BP at home is still elevated. Intake Vital Signs 07/04/24 13:56 10/04/24 13:31 Height 5 ft 7 in 5 ft 7 in Weight: 212 lb 209 lb BMI 33.2 32.7 BP 135/84 H 137/81 H Blood Pressure Location Lt brachial Lt brachial Position Sitting Sitting Respiration 16 16 Pulse 56 L 58 L Pulse Source NIBP Monitor Intake Visit Reasons: 3 M FU Competency Evaluated Nurse Aide Required: No Accompanied by: Self Is patient in pain?: No Allergies rosuvastatin (From CrestWillCall) Adverse Reaction (Intermediate, Verified 10/04/24 13:31) muscle aches Medications ???Medication ???Instructions ???Recorded ???Confirmed ???Type hydrochlorothiazide 25 mg tablet 25 mg PO DAILY 01/04/17 10/04/24 H istory amlodipine 5 mg tablet (Norvasc) 5 mg PO DAILY #90 tabs 11/21/19 Rx meloxicam 7.5 mg tablet 7.5 mg PO DAILY PRN Pain 12/31/20 10/04/24 History coQ10 (ubiquinol) 100 mg capsule 100 mg PO DAILY 08/02/23 10/04/24 History (Qunol Zane CoQ10) ezetimibe 10 mg tablet (Zetia) 10 mg PO QDAY #90 tabs 07/04/24 Rx losartan 100 mg tablet 100 mg PO DAILY #90 tabs 09/06/24 10/04/24 Rx carvedilol 25 mg tablet (Coreg) 25 mg PO Q12H #180 tabs 10/04/24 0 10/04/24 Rx Ejection fraction %: 60 Have you fallen in the past year?: No PFSH Medical History Cellulitis of left lower leg Contact dermatitis of lower leg Incomplete right bundle branch block Essential (primary) hypertension GERD (gastroesophageal reflux disease) Chest pain History of tobacco use Surgical History H/O tooth extraction History of colonoscopy (01/2017) History of tonsillectomy and adenoidectomy Family History Father CAD (coronary artery disease) Hypertension Heart disease Myocardial infarction Macular degeneration Mother CAD (coronary artery disease) Heart disease Diabetes Breast cancer Brother Hypertension Social History household members: children housing: house current occupational status: employed 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[employer] pets and animals: Yes pets and animals: cat(s), dog(s) and bird(s) Smoking Status: Former smoker how long ago did patient quit smokin years ago alcohol intake: never substance use type: does not use what type of physical activity do you participate in: none do you feel safe at home: Yes ROS Const Const: Negative for fatigue or weakness Eyes Eyes: Negative for change in vision ENT ENT: Positive for dizziness (not for awhile but has vertigo at times) and balance problems (maybe r/t inner ear) Cardio Chest Pain: No Palpitations: No Edema: None Additional Details: States he felt jittery on Wednesday like he had taken a lot of caffiene. Lasted abut 1 hr. took bp and pulse. Bp was 140/82, states pulse didn't seem high but he couldnt remember what it was. Resp Respiratory: Negative for SOB with activity, SOB at rest or SOB orthopnea SOB lying down GI GI: Negative nausea or heartburn Musc Musc: Positive for balance problems (maybe r/t inner ear) Neuro Neuro: Positive for dizziness (not for awhile but has vertigo at times); Negative for lightheadedness, near syncope, syncope or weakness Endo Endo: Negative for fatigue Cardiology Exam Const Appearance: cooperative and healthy appearing Head Head: normal to inspection Eyes General: appearance normal, both eyes and all related structures Neck Neck: no JVD Carotids: Negative bruit Chest Chest inspection: n (more content not included)... Normal [facility] Cardiology Visit Reporton Cardiology Visit Report [facility] [address] [place] [address] OFFICE VISIT Date of Service: 07/04/24 MR#: [id number] Acct: [id number] Name: LUPIS RAMIREZ Rep #: [id number] : 1960 Provider: CORNELL Philippe Age/Sex: 64/M Location: [facility] Status: Signed HPI HPI History of Present Illness Details: LUPIS RAMIREZ, is a 64 M with a history of hypertension and hyperlipidemia. He is still having muscle cramps on the crestor. From a cardiac standpoint, patient is doing well. He does not have any chest discomfort/heaviness/ tightness. His exercise tolerance is stable for his age. He does not have any worsening symptoms of shortness of breath. He denies any PND. He does not have any orthopnea. He does not have any symptoms of congestive heart failure. He does not have any palpitations that he is aware of. He does not have any lightheadedness or dizziness. He does not have any near-syncope or syncope. He does not have any lower extremity edema. He does not have any symptoms of claudication. Intake Vital Signs 08/10/23 17:27 07/04/24 13:56 07/04/24 14:24 Height 5 ft 7 in 5 ft 7 in Weight: 210 lb 8 oz 212 lb BMI 32.9 33.2 BP 122/80 H 135/84 H 160/90 H Blood Pressure Location Lt radial Lt brachial Position Sitting Sitting Respiration 16 Pulse 66 56 L Pulse Source NIBP Temp 98.6 F Pulse Oximetry (%) 96 Oxygen Delivery Method room air Intake Visit Reasons: 1 Y FU Competency Evaluated Nurse Aide Required: No Is patient in pain?: No Allergies rosuvastatin (From Crestor) Adverse Reaction (Intermediate, Verified 07/04/24 14:22) muscle aches Medications ???Medication ???Instructions ???Recorded ???Confirmed ???Type hydrochlorothiazide 25 mg tablet 25 mg PO DAILY 01/04/17 07/04/24 H istory metoprolol tartrate 100 mg tablet 100 mg PO BID 01/04/17 07/04/24 H istory amlodipine 5 mg tablet (Norvasc) 5 mg PO DAILY #90 tabs 11/21/19 Rx meloxicam 7.5 mg tablet 7.5 mg PO DAILY PRN Pain 12/31/20 07/04/24 History coQ10 (ubiquinol) 100 mg capsule 100 mg PO DAILY 08/02/23 07/04/24 History (Qunol Zane CoQ10) losartan 100 mg tablet 100 mg PO DAILY #90 tabs 08/26/23 07/04/24 Rx ezetimibe 10 mg tablet (Zetia) 10 mg PO QDAY #90 tabs 07/04/24 Rx Ejection fraction %: 60 Have you fallen in the past year?: No Nurse's Note: Patient would like to discuss the muscle aches and cramping with [facility]atin [facility] History Cellulitis of left lower leg Contact dermatitis of lower leg Incomplete right bundle branch block Essential (primary) hypertension GERD (gastroesophageal reflux disease) Chest pain History of tobacco use Surgical History H/O tooth extraction History of colonoscopy (01/2017) History of tonsillectomy and adenoidectomy Family History Father CAD (coronary artery disease) Hypertension Heart disease Myocardial infarction Macular degeneration Mother CAD (coronary artery disease) Heart disease Diabetes Breast cancer Brother Hypertension Social History household members: children housing: house current occupational status: employed 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[employer] pets and animals: Yes pets and animals: cat(s), dog(s) and bird(s) Smoking Status: Former smoker how long ago did patient quit smokin years ago alcohol intake: never substance use type: does not use what type of physical activity do you participate in: none do you feel safe at home: Yes ROS Const Const: Positive for other (Decreased stamina since starting rosuvastatin); Negative for fatigue or weakness Eyes Eyes: Negative for change in vision ENT ENT: Negative for dizziness or balance problems Cardio Chest Pain: No Palpitations: No Edema: None Resp Respiratory: Negative for SOB with activity, SOB at rest or SOB orthopnea SOB lying down GI GI: Negative nausea or heartburn Musc Musc: Positive for muscle aches/ myalgia; Negative for balance problems Neuro Neuro: Negative for dizziness, lightheadedness, near syncope, syncope or weakness Endo Endo: Negative for fatigue Cardiology Exam Const Appearance: cooperative and healthy appearing Head Head: normal to inspection Eyes General: appearance normal, both eyes and all related structures Neck Neck: no JVD Carotids: Negative bruit Chest Chest inspection: normal inspection of the chest Auscultation: Bilateral: Clear to Auscultation Cardio Rate: regular rate Rhythm: regular rhythm Heart sounds: S1 normal and S2 normal; Negative rub, gallop or murmur GI GI: normal to inspection Neuro General: patie (more content not included)... Normal [facility] CBC, Employeeon 01-27-2024 Absolute Lymph 1.63 X10 3/uL Normal 0.83-4.51 [facility] Comment on above: Performed By: #### L 100.0200, L500.2900 #### [facility] [address] [facility] [place], [address] Absolute Neut 4.5 X10 3/uL Normal 2.0-7.7 [facility] Comment on above: Performed By: #### L 100.0200, L500.2900 #### [facility] [address] [place], [address] Basophils/100 WBC (Bld) 0.6 % Normal 0-1 [facility] Comment on above: Performed By: #### L 100.0200, L500.2900 #### [facility] [address] [facility] [place], [address] Eosinophils/100 WBC (Bld) 2.8 % Normal 0-5 [facility] Comment on above: Performed By: #### L 100.0200, L500.2900 #### [facility] [address] [place], [address] Erythrocyte distribution width (RBC) [Ratio] 12.1 % Normal 11.6-14.6 [facility] Comment on above: Performed By: #### L 100.0200, L500.2900 #### [facility] [address] [place], [address] Hematocrit (Bld) [Volume fraction] 46.9 % Normal 40-54 [facility] Comment on above: Performed By: #### L 100.0200, L500.2900 #### [facility] [address] [place], [address] Hemoglobin (Bld) [Mass/Vol] 15.8 g/dL Normal 13.0-16.5 [facility] Comment on above: Performed By: #### L 100.0200, L500.2900 #### [facility] [address] [place], [address] Lymphocytes/100 WBC (Bld) 22.9 % Normal 19-41 [facility] Comment on above: Performed By: #### L 100.0200, L500.2900 #### [facility] [address] [place], [address] MCH (RBC) [Entitic mass] 30.3 pg Normal 27.0-32.0 [facility] Comment on above: Performed By: #### L 100.0200, L500.2900 #### [facility] [address] [place], [address] MCHC (RBC) [Mass/Vol] 33.7 g/dL Normal 32-36 [facility] Comment on above: Performed By: #### L 100.0200, L500.2900 #### [facility] [address] [place], [address] MCV (RBC) [Entitic vol] 89.8 fL Normal 80-94 [facility] Comment on above: Performed By: #### L 100.0200, L500.2900 #### [facility] [address] [place], [address] Monocytes/100 WBC (Bld) 10.5 % High 0-10 [facility] Comment on above: Performed By: #### L 100.0200, L500.2900 #### [facility] [address] [place], [address] Neutrophils/100 WBC (Bld) 63.1 % Normal 47-70 [facility] Comment on above: Performed By: #### L 100.0200, L500.2900 #### [facility] [address] [place], [address] NRBC # 0.00 10 3/uL Normal 0-5 [facility] Comment on above: Performed By: #### L 100.0200, L500.2900 #### [facility] [address] [place], [address] Nucleated RBC (Bld) [#/Vol] 0 10*3/uL Normal 0-5 [facility] Comment on above: Performed By: #### L 100.0200, L500.2900 #### [facility] [address] [place], [address] Platelet mean volume (Bld) [Entitic vol] 10.4 fL Normal 6.2-12.0 [facility] Comment on above: Performed By: #### L 100.0200, L500.2900 #### [facility] [address] [place], [address] Platelets (Bld) [#/Vol] 236 10*3/uL Normal 150-450 [facility] Comment on above: Performed By: #### L 100.0200, L500.2900 #### [facility] [address] [place], [address] RBC (Bld) [#/Vol] 5.22 10*6/uL Normal 4.6-6.2 [facility] Comment on above: Performed By: #### L 100.0200, L500.2900 #### [facility] [address] [place], [address] RDW SD 39.8 fl Normal 35.1-43.9 [facility] Comment on above: Performed By: #### L 100.0200, L500.2900 #### [facility] [address] [place], [address] WBC (Bld) [#/Vol] 7.1 10*3/uL Normal 4.4-11.0 [facility] Comment on above: Performed By: #### L 100.0200, L500.2900 #### [facility] [address] [place], [address] Employee [employer] 4 Albumin [Mass/Vol] 4.1 g/dL Normal 3.2-5.0 [facility] Comment on above: Performed By: #### L 100.0200, L500.2900 ####[facility] [address] [place], [address] Albumin/Globulin [Mass ratio] 1.2 {ratio} Normal 0.9-2.4 [facility] Comment on above: Performed By: #### L 100.0200, L500.2900 ####[facility] [address] [place], [address] ALK P 96 U/L Normal 45-117 [facility] Comment on above: Performed By: #### L 100.0200, L500.2900 ####[facility] [address] [place], [address] ALT [Catalytic activity/Vol] 72 U/L High 16-61 [facility] Comment on above: Performed By: #### L 100.0200, L500.2900 ####[facility] [address] [place], [address] AST [Catalytic activity/Vol] 34 U/L Normal 15-37 [facility] Comment on above: Performed By: #### L 100.0200, L500.2900 ####[facility] [address] [place], [address] Bilirubin [Mass/Vol] 1.10 mg/dL High 0.20-1.00 [facility] Comment on above: Result Comment: For patients on eltrombopag therapy, use of Dimension [place]ford TBIL is not recommended. Performed By: #### L 100.0200, L500.2900 ####[facility] [address] [place], [address] Bilirubin.direct [Mass/Vol] 0.20 mg/dL Normal 0.00-0.30 [facility] Comment on above: Performed By: #### L 100.0200, L500.2900 ####[facility] [address], [address] BUN/CRE 14.7 RATIO Normal 10-20 [facility] Comment on above: Performed By: #### L 100.0200, L500.2900 ####[facility] [address] [place], [address] CA,Total 9.5 mg/dL Normal 8.5-10.1 [facility] Comment on above: Performed By: #### L 100.0200, L500.2900 ####[facility] [address] [place], [address] Chloride [Moles/Vol] 107 mmol/L Normal 98-107 [facility] Comment on above: Performed By: #### L 100.0200, L500.2900 ####[facility] [address] [place], [address] CHOL:HDL 2.60 Normal [facility] Comment on above: Performed By: #### L 100.0200, L500.2900 ####[facility] [address] [place], [address] Cholesterol [Mass/Vol] 149 mg/dL Normal 200 [facility] Comment on above: Result Comment: <200 mg/dL Desirable 200-240 mg/dL Borderline >240 mg/dL High Risk Performed By: #### L 100.0200, L500.2900 ####[facility] [address] [place], [address] Cholesterol in HDL [Mass/Vol] 57 mg/dL Normal [facility] Comment on above: Result Comment: The drugs N-Acetylcysteine and Metamizole may falsely depress this assay. Reference Range HDL <40 mg/dL Low HDL Cholesterol HDL >or= 60 mg/dL High HDL Cholesterol Performed By: #### L 100.0200, L500.2900 ####[facility] [address] [place], [address] Cholesterol in LDL [Mass/Vol] 76 mg/dL Normal 0-130 [facility] Comment on above: Performed By: #### L 100.0200, L500.2900 ####[facility] [address] [place], [address] Cholesterol in VLDL [Mass/Vol] 16 mg/dL Normal 5-40 [facility] Comment on above: Performed By: #### L 100.0200, L500.2900 ####[facility] [address] [place], [address] CO2 [Moles/Vol] 23.0 mmol/L Normal 21.0-32.0 [facility] Comment on above: Performed By: #### L 100.0200, L500.2900 ####[facility] [address] [place], [address] Creatinine [Mass/Vol] 0.89 mg/dL Normal 0.70-1.30 [facility] Comment on above: Result Comment: The validity of the calculated GFR GFRAA in patients over 70 years has not been determined. Clinical correlation is essential. Performed By: #### L 100.0200, L500.2900 ####[facility] [address] [place], [address] EST GFR - AA 111 mL/min Normal >60 [facility] Comment on above: Result Comment: Afri can Mexican GFR Calc Performed By: #### L 100.0200, L500.2900 ####[facility] [address] [place], [address] GAP 7 Normal 5-15 [facility] Comment on above: Performed By: #### L 100.0200, L500.2900 ####[facility] [address] [place], [address] GFR/1.73 sq M.predicted among non-blacks MDRD (S/P/Bld) [Vol rate/Area] 92 mL/min/{1.73_m2} Normal >60 [facility] Comment on above: Result Comment: Non- GFR Calc Performed By: #### L 100.0200, L500.2900 ####[facility] [address] [place], [address] Globulin (S) [Mass/Vol] 3.5 g/dL Normal 2.2-4.2 [facility] Comment on above: Performed By: #### L 100.0200, L500.2900 ####[facility] [address] [place], [address] Glucose [Mass/Vol] 130 mg/dL High 74-106 [facility] Comment on above: Result Comment: Fast ing Glucose result greater than or equal to 126 mg/dL suggests DIABETES MELLITUS per A.D.A. criteria. Performed By: #### L 100.0200, L500.2900 ####[facility] [address] [place], [address] LDH 201 U/L Normal 87-241 [facility] Comment on above: Performed By: #### L 100.0200, L500.2900 ####[facility] [address] [place], [address] Phosphate [Mass/Vol] 3.0 mg/dL Normal 2.5-4.9 [facility] Comment on above: Performed By: #### L 100.0200, L500.2900 ####[facility] [address] [place], [address] Potassium [Moles/Vol] 3.9 mmol/L Normal 3.5-5.1 [facility] Comment on above: Performed By: #### L 100.0200, L500.2900 ####[facility] [address] [place], [address] Sodium [Moles/Vol] 138 mmol/L Normal 136-145 [facility] Comment on above: Performed By: #### L 100.0200, L500.2900 ####[facility] [address] [place], [address] T PROT 7.6 g/dL Normal 6.4-8.2 [facility] Comment on above: Performed By: #### L 100.0200, L500.2900 ####[facility] [address] [place], [address] Triglyceride [Mass/Vol] 79 mg/dL Normal [facility] Comment on above: Result Comment: The drugs N-Acetylcysteine and Metamizole may falsely depress this assay. Serum Triglycerides Reference Interval Normal <150 mg/dL Borderline high 150 - 199 mg/dL High 200 - 499 mg/dL Very High > or = 500 mg/dL Performed By: #### L 100.0200, L500.2900 ####[facility] [address] [place] [place], [address] Urea nitrogen [Mass/Vol] 13 mg/dL Normal 7-18 [facility] Comment on above: Performed By: #### L 100.0200, L500.2900 ####[facility] [address], [address] URIC 4.4 mg/dL Normal 3.5-7.2 [facility] Comment on above: Result Comment: The drugs N-Acetylcysteine and Metamizole may falsely depress this assay. Performed By: #### L 100.0200, L500.2900 ####[facility] [address] [place] [place], [address] Absolute lymphocyte countOrd ered By: HEALTH ASSESSMENT on 12-10-2022 Lymphocytes Auto (Unsp spec) [#/Vol] 1.90 10*3/uL 0.83-4.51 [facility] Absolute reticulocyte countO rdered By: HEALTH ASSESSMENT on 12-10-2022 Reticulocytes (Bld) [#/Vol] 0.00 10*3/uL 0-5 [facility] Basophil percentageOrdered B y: HEALTH ASSESSMENT on 12-10-2022 Basophil percentage 3.0 mg/dL 2.5-4.9 [facility] Bilirubin [Mass/Vol] 0.80 mg/dL 0.20-1.00 [facility] Comment on above: For patients on eltr ombopag therapy, use of Dimension [place] TBIL is not recommended. Chloride [Moles/Vol] 106 mmol/L 98-107 [facility] Cholesterol [Mass/Vol] 196 mg/dL <200 [facility] Comment on above: <200 mg/dL Desirable 200-240 mg/dL Borderline >240 mg/dL High Risk Glucose [Mass/Vol] 117 mg/dL 74-106 [facility] Comment on above: Fasting Glucose resu lt from 100 to 125 mg/dL suggests IMPAIRED HOMEOSTASIS per A.D.A. criteria. LDH [Catalytic activity/Vol] 171 U/L 87-241 [facility] Neutrophils (Bld) [#/Vol] 4.4 10*3/uL 2.0-7.7 [facility] Potassium [Moles/Vol] 3.9 mmol/L 3.5-5.1 [facility] Protein [Mass/Vol] 7.3 g/dL 6.4-8.2 [facility] Sodium [Moles/Vol] 138 mmol/L 136-145 [facility] Triglyceride [Mass/Vol] 96 mg/dL <199 [facility] Comment on above: The drugs N-Acetylcy steine and Metamizole may falsely depress this assay.Serum Triglycerides Reference Interval Normal <150 mg/dL Borderline high 150 - 199 mg/dL High 200 - 499 mg/dL Very High > or = 500 mg/dL WBC (Bld) [#/Vol] 7.4 10*3/uL 4.4-11.0 [facility] Blood erythrocytes count (nu mber/volume)Ordered By: HEALTH ASSESSMENT on 12-10-2022 RBC (Bld) [#/Vol] 5.19 10*6/uL 4.6-6.2 [facility] Blood hemoglobin measurement (mass/volume)Ordered By: HEALTH ASSESSMENT on 12-10-2022 Hemoglobin (Bld) [Mass/Vol] 15.8 g/dL 13.0-16.5 [facility] Blood platelet mean volumeOr dered By: HEALTH ASSESSMENT on 12-10-2022 Platelet mean volume (Bld) [Entitic vol] 9.6 fL 6.2-12.0 [facility] Determination of erythrocyte mean corpuscular volume (MCV)Ordered By: HEALTH ASSESSMENT on 12-10-2022 MCV (RBC) [Entitic vol] 91.5 fL 80-94 [facility] Direct bilirubinOrdered By: HEALTH ASSESSMENT on 12-10-2022 Bilirubin.direct [Mass/Vol] 0.19 mg/dL 0.00-0.30 [facility] Hematocrit Auto (Bld) [Volum e fraction]Ordered By: HEALTH ASSESSMENT on 12-10-2022 Hematocrit (Bld) [Volume fraction] 47.5 % 40-54 [facility] Laboratory - Chemistry and C hemistry - challengeOrdered By: HEALTH ASSESSMENT on 12-10-2022 ALP [Catalytic activity/Vol] 101 U/L 45-117 [facility] ALT [Catalytic activity/Vol] 57 U/L 16-61 [facility] Cholesterol.total/Tiffany sterol in HDL [Mass ratio] 4.10 {ratio} [facility] CO2 [Moles/Vol] 28.0 mmol/L 21.0-32.0 [facility] Globulin (S) [Mass/Vol] 3.5 g/dL 2.2-4.2 [facility] Urea nitrogen/Creatinine [Mass ratio] 14.7 mg/mg 10-20 [facility] Laboratory - Hematology and Cell countsOrdered By: HEALTH ASSESSMENT on 12-10-2022 Erythrocyte distribution width (RBC) [Entitic vol] 41.4 fL 35.1-43.9 [facility] Erythrocyte distribution width (RBC) [Ratio] 12.4 % 11.6-14.6 [facility] MCH (RBC) [Entitic mass] 30.4 pg 27.0-32.0 [facility] Nucleated RBC/100 WBC (Bld) [Ratio] 0 % 0-5 [facility] MCHC Auto (RBC) [Mass/Vol]Or dered By: HEALTH ASSESSMENT on 12-10-2022 MCHC (RBC) [Mass/Vol] 33.3 g/dL 32-36 [facility] No Panel InformationOrdered By: HEALTH ASSESSMENT on 12-10-2022 Estimated GFR (MDRD) Amer 95 mL/min >60 [facility] Comment on above: GFR Calc Estimated GFR (MDRD) Non-Af Amer 79 mL/min >60 [facility] Comment on above: Non- GFR Calc Platelets bldOrdered By: ANA LTH ASSESSMENT on 12-10-2022 Platelets (Bld) [#/Vol] 263 10*3/uL 150-450 [facility] Segmented neutrophils/100 WB C Auto (Bld)Ordered By: HEALTH ASSESSMENT on 12-10-2022 Segmented neutrophils/100 WBC (Bld) 59.4 % 47-70 [facility] Serum or plasma albumin dianne urement (mass/volume)Ordered By: HEALTH ASSESSMENT on 12-10-2022 Albumin [Mass/Vol] 3.8 g/dL 3.2-5.0 [facility] Serum or plasma albumin/glob ulin mass ratioOrdered By: HEALTH ASSESSMENT on 12-10-2022 Albumin/Globulin [Mass ratio] 1.1 {ratio} 0.9-2.4 [facility] Serum or plasma calcium dianne urement (mass/volume)Ordered By: HEALTH ASSESSMENT on 12-10-2022 Calcium [Mass/Vol] 9.0 mg/dL 8.5-10.1 [facility] Serum or plasma cholesterol in HDL measurement (mass/volume)Ordered By: HEALTH ASSESSMENT on 12-10-2022 Cholesterol in HDL [Mass/Vol] 48 mg/dL >40 [facility] Comment on above: The drugs N-Acetylcy steine and Metamizole may falsely depress this assay. Reference Range HDL <40 mg/dL Low HDL Cholesterol HDL >or= 60 mg/dL High HDL Cholesterol Serum or plasma cholesterol in VLDL measurement (mass/volume)Ordered By: HEALTH ASSESSMENT on 12-10-2022 Cholesterol in VLDL [Mass/Vol] 19 mg/dL 5-40 [facility] Serum or plasma creatinine m easurement (mass/volume)Ordered By: HEALTH ASSESSMENT on 12-10-2022 Creatinine [Mass/Vol] 1.02 mg/dL 0.70-1.30 [facility] Comment on above: The validity of the calculated GFR & GFRAA in patients over 70 years has not been determined. Clinical correlation is essential. Serum or plasma low density lipoprotein (LDL) cholesterol measurement (mass/volume)Ordered By: HEALTH ASSESSMENT on 12-10-2022 Cholesterol in LDL [Mass/Vol] 129 mg/dL 0-130 [facility] Serum or plasma urea nitroge n measurement (mass/volume)Ordered By: HEALTH ASSESSMENT on 12-10-2022 Urea nitrogen [Mass/Vol] 15 mg/dL 7-18 [facility] Serum or plasma uric acid me asurement (mass/volume)Ordered By: HEALTH ASSESSMENT on 12-10-2022 Urate [Mass/Vol] 4.9 mg/dL 3.5-7.2 [facility] Comment on above: The drugs N-Acetylcy steine and Metamizole may falsely depress this assay. Thin prep Papanicolaou smear with manual screeningOrdered By: HEALTH ASSESSMENT on 12-10-2022 Thin prep Papanicolaou smear with manual screening 23 U/L 15-37 [facility] Thin prep Papanicolaou smear with manual screening 4 5-15 [facility] Basophil percentageOrdered B y: Jina Woods on 01-13-2022 Bilirubin [Mass/Vol] 0.90 mg/dL 0.20-1.00 [facility] Comment on above: For patients on eltr ombopag therapy, use of Dimension [place] TBIL is not recommended. Cholesterol [Mass/Vol] 200 mg/dL <200 [facility] Comment on above: <200 mg/dL Desirable 200-240 mg/dL Borderline >240 mg/dL High Risk Protein [Mass/Vol] 6.8 g/dL 6.4-8.2 [facility] Triglyceride [Mass/Vol] 122 mg/dL <199 [facility] Comment on above: The drugs N-Acetylcy steine and Metamizole may falsely depress this assay.Serum Triglycerides Reference Interval Normal <150 mg/dL Borderline high 150 - 199 mg/dL High 200 - 499 mg/dL Very High > or = 500 mg/dL Direct bilirubinOrdered By: Jina Woods on 01-13-2022 Bilirubin.direct [Mass/Vol] 0.18 mg/dL 0.00-0.30 [facility] Laboratory - Chemistry and C hemistry - challengeOrdered By: Jina Woods on 01-13-2022 ALP [Catalytic activity/Vol] 90 U/L 45-117 [facility] ALT [Catalytic activity/Vol] 47 U/L 16-61 [facility] Globulin (S) [Mass/Vol] 2.9 g/dL 2.2-4.2 [facility] Serum or plasma albumin dianne urement (mass/volume)Ordered By: Jina Woods on 01-13-2022 Albumin [Mass/Vol] 3.9 g/dL 3.2-5.0 [facility] Serum or plasma cholesterol in HDL measurement (mass/volume)Ordered By: Jina Woods on 01-13-2022 Cholesterol in HDL [Mass/Vol] 55 mg/dL >40 [facility] Comment on above: The drugs N-Acetylcy steine and Metamizole may falsely depress this assay. Reference Range HDL <40 mg/dL Low HDL Cholesterol HDL >or= 60 mg/dL High HDL Cholesterol Serum or plasma cholesterol in VLDL measurement (mass/volume)Ordered By: Jina Woods on 01-13-2022 Cholesterol in VLDL [Mass/Vol] 24 mg/dL 5-40 [facility] Serum or plasma low density lipoprotein (LDL) cholesterol measurement (mass/volume)Ordered By: Jina Woods on 01-13-2022 Cholesterol in LDL [Mass/Vol] 121 mg/dL 0-130 [facility] Thin prep Papanicolaou smear with manual screeningOrdered By: Jina Woods on 01-13-2022 Thin prep Papanicolaou smear with manual screening 20 U/L 15-37 [facility] Absolute lymphocyte counton 07-11-2021 Lymphocytes Auto (Unsp spec) [#/Vol] 1.91 10*3/uL 0.83-4.51 [facility] Work Phone: Basophil percentageon 2021 Basophils/100 WBC (Bld) 0.5 % 0-1 [facility] Work Phone: [phone] Chloride [Moles/Vol] 104 mmol/L 98-107 [facility] Work Phone: Eosinophils/100 WBC (Bld) 2.0 % 0-5 [facility] Work Phone: Glucose [Mass/Vol] 94 mg/dL 74-106 [facility] Work Phone: Neutrophils (Bld) [#/Vol] 4.6 10*3/uL 2.0-7.7 [facility] Work Phone: Neutrophils/100 WBC (Bld) 60.7 % 47-70 [facility] Work Phone: Potassium [Moles/Vol] 3.6 mmol/L 3.5-5.1 [facility] Work Phone: Sodium [Moles/Vol] 138 mmol/L 136-145 [facility] Work Phone: WBC (Bld) [#/Vol] 7.6 10*3/uL 4.4-11.0 [facility] Work Phone: Blood erythrocytes count (nu mber/volume)on 07-11-2021 RBC (Bld) [#/Vol] 4.91 10*6/uL 4.6-6.2 [facility]: Blood hemoglobin measurement (mass/volume)on 07-11-2021 Hemoglobin (Bld) [Mass/Vol] 15.4 g/dL 13.0-16.5 [facility] Work Phone: Blood lymphocytes/100 leukoc yteson 07-11-2021 Lymphocytes/100 WBC (Bld) 25.1 % 19-41 [facility] Work Phone: Blood monocytes/100 leukocyt eson 07-11-2021 Monocytes/100 WBC (Bld) 11.3 % 0-10 [facility] Work Phone: Blood platelet mean volumeon 07-11-2021 Platelet mean volume (Bld) [Entitic vol] 9.7 fL 6.2-12.0 [facility] Work Phone: Determination of erythrocyte mean corpuscular volume (MCV)on 07-11-2021 MCV (RBC) [Entitic vol] 89.4 fL 80-94 [facility] Work Phone: Hematocrit Auto (Bld) [Volum e fraction]on 07-11-2021 Hematocrit (Bld) [Volume fraction] 43.9 % 40-54 [facility] Work Phone: Laboratory - Chemistry and C hemistry - challengeon 07-11-2021 CO2 [Moles/Vol] 27.0 mmol/L 21.0-32.0 [facility] Work Phone: Urea nitrogen/Creatinine [Mass ratio] 17.3 mg/mg 10-20 [facility] Work Phone: Laboratory - Hematology and Cell countson 07-11-2021 Erythrocyte distribution width (RBC) [Entitic vol] 39.6 fL 35.1-43.9 [facility] Work Phone: Erythrocyte distribution width (RBC) [Ratio] 12.1 % 11.6-14.6 [facility] Work Phone: Immature granulocytes/100 WBC (Bld) 0.400 % 0.0-0.9 [facility] Work Phone: Comment on above: IG% - Immature Granu locytes (promyelocytes, myelocytes and metamyelocytes) > 1% indicates that a LEFT SHIFT is Present. MCH (RBC) [Entitic mass] 31.4 pg 27.0-32.0 [facility] Work Phone: Nucleated RBC/100 WBC (Bld) [Ratio] 0 % 0-5 [facility] Work Phone: MCHC Auto (RBC) [Mass/Vol]on 07-11-2021 MCHC (RBC) [Mass/Vol] 35.1 g/dL 32-36 [facility] Work Phone: No Panel Informationon 07-11 Estimated Creatinine Clearance Calc 76.58 ml/min [facility] Work Phone: Estimated GFR (MDRD) Amer 100 mL/min >60 [facility] Work Phone: Comment on above: GFR Calc Estimated GFR (MDRD) Non-Af Amer 82 mL/min >60 [facility] Work Phone: Comment on above: Non- GFR Calc Platelets bldon 07-11-2021 Platelets (Bld) [#/Vol] 229 10*3/uL 150-450 [facility] Work Phone: Serum or plasma calcium dianne urement (mass/volume)on 07-11-2021 Calcium [Mass/Vol] 9.3 mg/dL 8.5-10.1 [facility] Work Phone: Serum or plasma creatinine m easurement (mass/volume)on 07-11-2021 Creatinine [Mass/Vol] 0.98 mg/dL 0.70-1.30 [facility] Work Phone: Comment on above: The validity of the calculated GFR & GFRAA in patients over 70 years has not been determined. Clinical correlation is essential. Serum or plasma urea nitroge n measurement (mass/volume)on 07-11-2021 Urea nitrogen [Mass/Vol] 17 mg/dL 08-25 [facility] Work Phone: Thin prep Papanicolaou smear with manual screeningon 07-11-2021 Thin prep Papanicolaou smear with manual screening 06-22 [facility] Work Phone: Vital Signs Date Time Vital Sign Value Performing Clinician Faci lity 11-09-2024 07:56-0400 Body mass index (BMI) [Ratio] 32.8 kg/m2 Dr. Dayami Anderson MD Work Phone: [facility] 11-09-2024 07:56-0400 Body weight 95.[address] Dayami Anderson MD Work Phone: [facility] 11-09-2024 07:56-0400 Diastolic blood pressure 93 mm[Hg] Dr. Dayami Anderson MD Work Phone: [facility] 11-09-2024 07:56-0400 Heart rate 75 /min Dr. Dayami Anderson MD Work Phone: [facility] 11-09-2024 07:56-0400 Respiratory rate 18 /min Dr. Dayami Anderson MD Work Phone: [facility] 11-09-2024 07:56-0400 SaO2% (BldA) [Mass fraction] 95 % Dr. Dayami Anderson MD Work Phone: [facility] 11-09-2024 07:56-0400 Systolic blood pressure 167 mm[Hg] Dr. Dayami Anderson MD Work Phone: [facility] 10-04-2024 13:31-0400 Body height 170.[address] Dayami Anderson MD Work Phone: [facility] 10-04-2024 13:31-0400 Body mass index (BMI) [Ratio] 32.7 kg/m2 Dr. Dayami Anderson MD Work Phone: [facility] 10-04-2024 13:31-0400 Body weight 94.[address] Dayami Anderson MD Work Phone: [facility] 10-04-2024 13:31-0400 Diastolic blood pressure 81 mm[Hg] Dr. Dayami Anderson MD Work Phone: [phone] [place] [address] 10-04-2024 13:31-0400 Heart rate 58 /min Dr. Dayami Anderson MD Work Phone: [phone] [place] [address] 10-04-2024 13:31-0400 Respiratory rate 16 /min Dr. Dayami Anderson MD Work Phone: [facility] 10-04-2024 13:31-0400 Systolic blood pressure 137 mm[Hg] Dr. Dayami Anderson MD Work Phone: [facility] 07-04-2024 14:24-0400 Diastolic blood pressure 90 mm[Hg] Dr. Dayami Anderson MD Work Phone: [facility] 07-04-2024 14:24-0400 Systolic blood pressure 160 mm[Hg] Dr. Dayami Anderson MD Work Phone: [facility] 07-04-2024 13:56-0400 Body height 170.[address] Dayami Anderson MD Work Phone: [facility] 07-04-2024 13:56-0400 Body mass index (BMI) [Ratio] 33.2 kg/m2 Dr. Dayami Anderson MD Work Phone: [facility] 07-04-2024 13:56-0400 Body weight 96.[address] Dayami Anderson MD Work Phone: [phone] [place] [address] 07-04-2024 13:56-0400 Heart rate 56 /min Dr. Dayami Anderson MD Work Phone: [facility] 07-04-2024 13:56-0400 Respiratory rate 16 /min Dr. Dayami Anderson MD Work Phone: [facility] 01-25-2023 15:55-0500 Body height 170.18 cm [facility] 01-25-2023 15:55-0500 Body mass index (BMI) [Ratio] 31.3 kg/m2 [facility] 01-25-2023 15:55-0500 Body temperature 98.9 [degF] [facility] 01-25-2023 15:55-0500 Body weight 90.71 kg [facility] 01-25-2023 15:55-0500 Diastolic blood pressure 74 mm[Hg] [facility] 01-25-2023 15:55-0500 Heart rate 65 /min [facility] 01-25-2023 15:55-0500 Respiratory rate 14 /min [facility] 01-25-2023 15:55-0500 SaO2% (BldA) [Mass fraction] 98 % [facility] 01-25-2023 15:55-0500 Systolic blood pressure 139 mm[Hg] [facility] 02-20-2022 14:05-0500 Body height 172.[address] Dayami Anderson Work Phone: [facility] 12-31-2021 13:03-0500 Body height 172.[address] Dayami Anderson Work Phone: [facility] Work Phone: 12-31-2021 13:03-0500 Body mass index (BMI) [Ratio] 32.3 kg/m2 Dr. Dayami Anderson Work Phone: [facility] 12-31-2021 13:03-0500 Body weight 96.[address] Dayami Anderson Work Phone: [facility] 12-31-2021 13:03-0500 Diastolic blood pressure 78 mm[Hg] Dr. Dayami Anderson Work Phone: [facility] 12-31-2021 13:03-0500 Heart rate 66 /min Dr. Dayami Anderson Work Phone: [facility] 12-31-2021 13:03-0500 Respiratory rate 16 /min Dr. Dayami Anderson Work Phone: [facility] 12-31-2021 13:03-0500 SaO2% (BldA) [Mass fraction] 97 % Dr. Dayami Anderson Work Phone: [facility] 12-31-2021 13:03-0500 Systolic blood pressure 141 mm[Hg] Dr. Dayami Anderson Work Phone: [facility] 07-11-2021 19:50-0400 Diastolic blood pressure 87 mm[Hg] [facility] Work Phone: 07-11-2021 19:50-0400 Systolic blood pressure 134 mm[Hg] [facility] Work Phone: 07-11-2021 18:38-0400 Heart rate 61 /min [facility] Work Phone: 07-11-2021 18:38-0400 Respiratory rate 18 /min [facility] Work Phone: 07-11-2021 18:38-0400 SaO2% (BldA) [Mass fraction] 94 % [facility] Work Phone: 07-11-2021 17:15-0400 Body height 172.72 cm [facility] Work Phone: 07-11-2021 17:15-0400 Body mass index (BMI) [Ratio] 29.6 kg/m2 [facility] Work Phone: 07-11-2021 17:15-0400 Body temperature 97.7 [degF] [facility] Work Phone: 07-11-2021 17:15-0400 Body weight 88.45 kg [facility] Work Phone: Encounters Encounter Date Encounter Type Care Provider Facility Start: 11-16-2024 ambulatory Karla SARABIA Facility:[facility] Start: 11-15-2024 ambulatory Karla SARABIA Facility:[facility] Start: 11-09-2024 End: 11-09-2024 Patient encounter procedure Karla SARABIA -[facility] Work Phone: Start: 11-09-2024 End: 11-09-[address] Dayami Anderson MD Work Phone: -[facility] Start: 11-09-[address] Dayami Anderson MD -[facility] Work Phone: Start: 11-09-2024 ambulatory [facility] Facility: [facility] Start: 10-04-2024 End: 10-04-2024 Patient encounter procedure Karla SARABIA -[facility] Work Phone: Start: 10-04-2024 End: 10-04-[address] Dayami Anderson MD Work Phone: -[facility] Start: 07-04-2024 End: 07-04-2024 Patient encounter procedure Karla SARABIA -[facility] Work Phone: Start: 07-04-2024 End: 07-04-[address] Dayami Anderson MD Work Phone: [facility] Work Phone: Start: 01-27-2024 ambulatory [facility] Facility: [facility] Start: 01-25-2023 End: 01-25-2023 Emergency department patient visit [facility] Work Phone: Start: 12-10-2022 Registered Referred [facility] Start: 04-07-2022 End: 04-07-[address] Dayami Anderson Work Phone: [facility] Work Phone: Start: 04-07-2022 End: 04-07-[address] Dayami Anderson Work Phone: [facility]Radiology, [facility] Start: 04-06-2022 End: 04-06-[address] Dayami Anderson Work Phone: [facility] Work Phone: Start: 04-06-2022 End: 04-06-[address] Dayami Anderson Work Phone: [facility] Start: 04-06-[address] [facility] Start: 02-23-2022 End: 02-23-[address] Dayami Anderson Work Phone: [facility] Start: 01-13-2022 End: 01-13-[address] Dayami Anderson Work Phone: [facility] Work Phone: Start: 01-13-2022 End: 01-13-[address] Dayami Anderson Work Phone: [facility] Start: 12-31-2021 End: 12-31-[address] Dayami Anderson Work Phone: [facility] Start: 07-11-2021 End: 07-11-2021 [facility] Date Procedure Procedure Detail Performing Clinician Start: 11-09-2024 Prostate specific an tigen measurement Dr. Dayami Anderson MD Work Phone: Comment on above: This test was perfor med using the [facility] tPSA method. Measured values of a patient sample can vary depending on the testing procedure used. PSA values determined on patient samples by different testing procedures cannot be used interchangeably. If there is a change in PSA assays while monitoring therapy, sequential testing should be performed to confirm baseline values. Start: 04-07-2022 X-ray of lumbar spin e, two or three views Dr. Dayami Anderson Work Phone: Start: 07-11-2021 CT of head without contrast Plan of Treatment Date Care Activity Detail Author Start: 11-09-2024 End: 11-09-2024 Evaluation of diagnostic study results [facility] Start: 10-04-2024 CT angiography of co ronary arteries [facility] Start: 01-25-2023 [facility] Aldosterone [Mass/vo lume] in Serum or Plasma [facility] Catecholamines [Mole s/volume] in Plasma [facility] Hepatic function panel [facility] Lipid 1996 panel - S nasima or Plasma [facility] Patient Education [facility] Work Phone: Patient referral [facility] Work Phone: US Renal artery [facility] Immunizations Immunization Date Immunization Notes Care Provider Ginger akhtar 12-24-2023 influenza, seasonal, injectable, preservative free Dr. Dayami Anderson MD Work Phone: [facility] 01-05-2023 influenza, injectabl e, quadrivalent, preservative free [facility] 12-25-2021 influenza, injectabl e, quadrivalent, preservative free [facility] 12-25-2021 influenza, seasonal, injectable Dr. Dayami Anderson Work Phone: [facility] 12-19-2020 influenza, injectabl e, quadrivalent, preservative free [facility] 12-19-2020 influenza, seasonal, injectable [facility] 12-11-2020 Covid (Moderna) [facility] 03-19-2020 Covid (Moderna) [facility] 02-20-2020 Covid (Moderna) [facility] 12-14-2019 influenza, injectabl e, quadrivalent, preservative free [facility] 12-14-2019 influenza, seasonal, injectable [facility] 01-02-2019 influenza, injectabl e, quadrivalent, preservative free [facility] 01-02-2019 influenza, seasonal, injectable [facility] 12-08-2017 influenza, injectabl e, quadrivalent, preservative free [facility] 12-08-2017 influenza, seasonal, injectable [facility] 11-30-2016 influenza, injectabl e, quadrivalent, preservative free [facility] 11-30-2016 influenza, seasonal, injectable [facility] Payers Date Payer Category Payer Unknown [id number] 2024 Self-pay [id number] Unknown [id number] Unknown [id number] 2.16.8 [id number] Unknown [id number] 2.16.8 [id number] Unknown [id number] 2.16.8 [id number] Unknown [id number] 2.16.8 [id number] Unknown [id number] 2.16.8 [id number] Unknown [id number] 2.16.8 [id number] Unknown [id number] 2.16.8 [id number] Social History Date Type Detail Facility Start: 07-11-2021 End: 01-25-2023 Tobacco smoking status NHIS Unknown if ever smoked [facility] Start: 11-22-2019 Non-smoker [facility] Start: 1960 Sex Assigned At Male [facility] Start: 07-04-2024 Tobacco smoking stat us NHIS Ex-smoker (finding) [facility] Sex Male [facility] Mental Status Date Assessment Result Facility 01-25-2023 Cognitive function Level Of Cons ciousness Awake;Alert;Appropriate;Follow s Commands [facility] Work Phone: 07-11-2021 Cognitive function Level Of Cons ciousness Awake;Alert;Appropriate;Follow s Commands [facility] Work Phone: Clinical Notes 05-12-2022 to 10-04-2024 Note Date & Type Note Facility 10-04-2024 Evaluation note Diagnosis Onset Date Resolution Essential (primary) hypertension chronic October 04 1:28pm Hyperlipidemia chronic September 1:28pm Malignant hypertension acute Oc tober 2024 1:40pm Essential (primary) hypertension chronic November 09 1:40pm Hyperlipidemia chronic November 1:40pm Incomplete right bundle branch block chronic November 09 1:40pm [employer] [facility] Work Phone: 1(802) 537-938505-27-2025 Evaluation note* Diagnosis Onset Date Resolution Status Admit Date Essential (primary) hypertension chr onic July 04, 2024 1:54pm Hyperlipidemia chronic July 04, 2024 1:54pm Essential (primary) hypertension chr onic October 04, 2024 1:28pm Hyperlipidemia chronic September 1:28pm [employer] [facility] Work Phone: 1(760) 437-217012-18-2023 Discharge summary Author Hemal Reddy [facility] January 25, 2023 5:11pm Note Date/Time January 25, 2023 4:37pm [facility] Medical Records Department [address] [address] Emergency Department Summary 01/25/23 MR#: [id number] Acct: [id number] Name: LUPIS RAMIREZ Rep #:[id number] : 1960 62 From: Hemal Reddy MD PCP: Dr. Dayami Anderson MD Status:REG ER Location: ED HPI History of Present Illness Chief Complaint: Dizziness Detail of Chief Complaint: Vertigo Onset/Context/Timing Onset: Today, Hours and Weeks (Episode last week as well) Context: Sudden Onset Timing: Intermittent Quality: Objects moving Location: Was in the basement with onset Current Severity: Gone Maximum Severity: Severe Worsened by: Change in position Relieved by: Remaining still and eyes closed Associated Symptoms Associated Symptoms: Nausea Narrative Narrative: Patient is a 60-year-old male with history of vertigo. He also has history of hypertension on multiple antihypertensive meds. He was in the basement when he developed abrupt onset of vertigo. He feels as if the fall was going up and down a set of [id number]. He denies headache. Nuys double vision, blurred vision or loss of vision. He has chronic tinnitus. He denies decreased hearing. He denies rhinorrhea, congestion or postnasal drainage. He denies trouble with speech or swallowing. He denies cardiac or respiratory symptoms. He reports nausea otherwise he has no GI symptoms. He denies urologic symptoms. He denies paresthesia, anesthesia or motor weakness of the upper or lower extremities. He denies problems with fine coordination or movement Prior similar symptoms: Yes Recent Illness/Hospitalization: No PFSH PFSH Medical History Chest pain Essential (primary) hypertension GERD (gastroesophageal reflux disease) History of tobacco use Incomplete right bundle branch block Home Medications garlic 5,000 mcg tablet 5,000 mcg PO DAILY 01/04/17 [History Last Taken Unknown] hydrochlorothiazide 25 mg tablet 25 mg PO DAILY 01/04/17 [History Last Taken 11/29/19] metoprolol tartrate 100 mg tablet 100 mg PO BID 01/04/17 [History Last Taken 11/29/19] amlodipine 5 mg tablet (Norvasc) 5 mg PO DAILY #90 tabs 11/21/19 [Rx Last Taken Unknown] meloxicam 7.5 mg tablet 7.5 mg PO DAILY PRN Pain 12/31/20 [History Last Taken Unknown] losartan 100 mg tablet 100 mg PO DAILY #90 tabs 08/20/22 [Rx Last Taken Unknown] Allergy/AdvReac Type Severity Reaction Status Date / Time No Known Allergies Allergy Verified 01/25/23 15:55 Family History Father CAD (coronary artery disease) Hypertension Heart disease Myocardial infarction Macular degeneration Mother CAD (coronary artery disease) Heart disease Diabetes Breast cancer Brother Hypertension Surgical History H/O tooth extraction History of colonoscopy (01/2017) History of tonsillectomy and adenoidectomy Social History household members: children housing: house current occupational status: employed current occupation: [employer] with [employer] pets and animals: Yes pets and animals: cat(s), dog(s) and bird(s) Smoking Status: Former smoker alcohol intake: never substance use type: does not use what type of physical activity do you participate in: none do you feel safe at home: Yes ROS ROS ED Constitutional Constitutional ED: Denies chills, fever(s), subjective, sweats or weight loss Eyes Eyes: Denies blurry vision, change in vision or diplopia ENT ENT ED: Denies ear pain, rhinorrhea or sore throat Cardiovascular Cardiovascular: Denies chest pain or palpitations Respiratory/Chest Respiratory/Chest: Denies cough, dyspnea or dyspnea on exertion Gastrointestinal Gastrointestinal: Reports nausea; Denies abdominal pain, diarrhea, melena or vomiting Genitourinary Genitourinary ED: Denies dysuria, hematuria or urinary frequency Musculoskeletal Musculoskeletal: Denies arthralgias, back pain, myalgias or neck pain Integumentary Denies rash Neurologic Neurologic: Denies headache(s) or weakness Hematologic/Lymphatic Hematologic/Lymphatic: Reports systems reviewed and no addt'l complaints, exceptas documented EXAM Physical Exam Const Vital Signs: 01/25/23 15:55 01/25/23 16:09 Temperature 98.9 F Temperature Source Temporal Pulse Rate 65 Respiratory Rate 14 Respiratory Effort Normal Respiratory Pattern Normal Blood Pressure 139/74 H Blood Pressure Mean 95 Pulse Ox 98 Oxygen Delivery Method Room Air Positive well nourished and well developed Constitutional Narrative: Became pale after Rj-Hallpike maneuver. General Appearance ED: well developed, NAD and pallor; Negative for cyanotic or diaphoretic HEENT Reports moist mucous membranes HEENT Narrative: Head is atraumatic and normocephalic. Ears are normal. External auditory canals normal. TMs are normal. Nares patent with no discharge. Posterior pharynx out erythema or exudate. Uvula is midline. There is no deviation tongue with protrusion. There is no dysphonia. There is no dysarthria. Eyes PERRL and EOMs intact bilaterally Eyes Narrative: No central gaze nystagmus. General Eye ED: Yes scleral icterus; Negative for pale conjunctiva Neck no lymphadenopathy, supple and no JVD Neck Narrative: There is no right or left lateral. Chest Wall inspection of chest normal and palpation of chest normal Resp normal respiratory effort and clear to auscultation bilaterally Cardio regular rate, regular rhythm, S1 normal heart sound, S2 normal heart sound and no murmurs GI normal to inspection, nondistended, normoactive bowel sounds, non-tender, non-distended and no masses; Negative for hepatosplenomegaly Extremity normal to inspection Extremity Narrative: There is no acrocyanosis. There is no clubbing. Neuro oriented x3, CN's II-XII intact bilaterally and no sensory deficits noted Neuro Narrative: There is no clonus or Babinski sign. There is no dysmetria. The eye askew testand the hint test were both negative. Chrisman-Hallpike maneuver was positive both left and right. The nystagmus did fatigue. Sensorium / Orientation: alert Motor Exam: strength 5/5 throughout Psych mental status grossly normal Skin no rashes or lesions noted, no wounds and skin turgor normal General Skin Exam: elasticity normal and pallor; Negative for jaundice MDM MDM MDM Narrative Medical decision making narrative: With a negative neurologic test other than a positive Rj-Hallpike maneuver which reproduces symptoms and the nystagmus fatigue will perform Dell maneuver. Imaging is not indicated at this time. Patient was treated with Zofran ODT since he is nauseous and suspect his nauseousness will be worse after the Dell maneuver. Treatment and Re-Evaluation :: Was performed. Patient had no symptoms. He presently is symptom-free. He is now in an upright position with his head and 20 degrees of flexion. Will reassess in 5 minutes. Patient was reassessed at 1710. His symptoms resolved. Patient be discharged to home. Discharge Plan Triage Chief Complaint: Dizziness ED Provider: Hemal Reddy Dx/Rx/DC Orders Clinical Impression: Benign paroxysmal positional vertigo due to bilateral vestibular disorder Instructions: ED BPV Vertigo Prescriptions: No Action meloxicam 7.5 mg tablet 7.5 mg PO DAILY PRN (Reason: Pain) metoprolol tartrate 100 MG tablet 100 mg PO BID hydrochlorothiazide 25 MG tablet 25 mg PO DAILY garlic 5,000 MCG tablet 5,000 mcg PO DAILY amlodipine [Norvasc] 5 mg tablet 5 mg PO DAILY Qty: 90 3RF losartan 100 mg tablet 100 mg PO DAILY Qty: 90 3RF Primary Care Provider: Dayami Anderson Referrals: Dayami Anderson MD [Primary Care Provider] - As Needed Disposition Disposition: Home, Self Care What to do if you have Problems For any increased pain, shortness of breath, bleeding, nausea or vomiting, chestpain, or any unexpected problems, contact your Primary Care Provider. Call [facility] ([phone]) or report to the closest Emergency Room. Call 911 if necessary. 01/25/23 1711 <Electronically signed by Hemal Reddy MD> Cosigner Signature (if applicable): CC: Dr. Dayami Anderson MD ~ Signed [facility] Work Phone: 1(515) 437-766004-04-2023 Discharge summary Author Pauline Brownlee [facility] May 12, 2022 9:57am Note Date/Time May 12, 2022 9:57 am [facility] Physical Therapy [facility] [address] [place] [address] [address] [place] [address] / REHABILITATION SERVICES DISCHARGE SUMMARY MR#: [id number] Acct: [id number] Name: LUPIS RAMIREZ Rep #: [id number] : 1960 61 From: Pauline Brownlee PT, Cert. MDT Referring Dr.: Dr. Taurus Coyle, Status: REG RCR Insurance: [facility] [employer]/[facility] SELF PAY INSURANCE LUPIS RAMIREZ was seen in my office for initial evaluation on 04/06/22. The following Plan of Care was established for this patient: This patient was last seen in our office 04/06/22. Pertinent comments regardingtheir Physical therapy will appear below: This patient has not returned to Physical Therapy and is appropriate to return to MD for further follow-up as needed. At this point I will be discontinuing this patient from physical therapy. I would be happy to see this patient again in the future if found appropriate by the physician. Thank you! Pauline Brownlee, PT, Cert MDT Balance/Gait/Functional tests - Balance/Special Test Scores Oswestry Low Back Score: 14 <Electronically signed by Pauline Brownlee PT, Cert. MDT> 05/12/22 0957 CC: Dr. Dayami Anderson MD; Dr. Taurus Coyle, DO ~ JALEN Signed [facility] Work Phone: Evaluation noteNo assessment information available [facility] Work Phone: Evaluation note* Diagnosis Onset Date Resolution Status Essential (primary) hypertension chronic Hyperlipidemia chronic [facility] Work Phone: Evaluation note* Diagnosis Onset Date Resolution Status Essential (primary) hypertension chronic Hyperlipidemia chronic Spondylolisthesis at L5-S1 level chronic [facility] Work Phone: Evaluation note* Diagnosis Onset Date Resolution Status Spondylolisthesis at L5-S1 level chronic [facility] Work Phone: Evaluation note* Diagnosis Onset Date Resolution Status Admit Date Essential (primary) hypertension chr onic July 04, 2024 1:54pm Hyperlipidemia chronic July 04, 2024 1:54pm [facility] Work Phone: Hospital Discharge instructions Additional Instructions You may try the Antivert for dizzy spells however this can cause drowsiness [facility] Work Phone: Reason for referral (narrative)No reason for referral [facility] Work Phone: Chief Complaint and Reason for Visit Chief Complaint DIZZINESS Chief Complaint 1 Y FU EORDERS Reason for Visit Essential (primary) hypertension Hyperlipidemia Chief Complaint 1 Y FU EORDERS lumber spine BACK PAIN/RX HERE Reason for Visit Essential (primary) hypertension Hyperlipidemia Spondylolisthesis at L5-S1 level Chief Complaint EORDERS lumber spine BACK PAIN/RX HERE Reason for Visit Spondylolisthesis at L5-S1 level Chief Complaint EMPLOYEE HEALTH DIZZINESS Chief Complaint Admit Date 1 Y FU July 04, 2024 1:54p m Reason for Visit Admit Date Essential (primary) hypertension June 1:54pm Hyperlipidemia July 04, 2024 1:54p m Chief Complaint Admit Date 1 Y FU July 04, 2024 1:54p m 3 M FU October 04, 2024 1: 28pm Reason for Visit Admit Date Essential (primary) hypertension June 1:54pm Hyperlipidemia July 04, 2024 1:54p m Essential (primary) hypertension October 04, 2024 1:28pm Hyperlipidemia October 04, 2024 1: 28pm Chief Complaint Admit Date 3 M FU October 04, 2024 1: 28pm INCLUDE EORDER FROM 10/04 [facility] Octob er 2024 7:18am 1 M FU November 09, 2024 1: 40pm Reason for Visit Admit Date Essential (primary) hypertension October 04, 2024 1:28pm Hyperlipidemia October 04, 2024 1: 28pm 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, 2024 1:40pm Essential (primary) hypertension November 09, 2024 1:40pm Hyperlipidemia November 09, 2024 1: 40pm Incomplete right bundle branch block Oct tiffanie 2024 1:40pm Family History No Family History Records Found Relationship Condition Age at Onset Recorded Date/T belgica father Coronary artery disease Unknown Hypertension Unknown Cardiac disease Unknown Myocardial infarction Unknown Macular degeneration Unknown mother Coronary artery disease Unknown Diabetes mellitus Unknown Malignant neoplasm of breast Unknown brother Hypertension Unknown Advance Directives No Advanced Directives Records Found Advance Directive Response Recorded Date/ Time Living Will No July 11, 2021 5 :51pm Power of Customer Service And Sales Consultant No July 11, 2021 5:51pm Advance Directive Response Recorded Date/ Time Living Will No July 11, 2021 4 :51pm Power of Customer Service And Sales Consultant No July 11, 2021 4:51pm Advance Directive Response Recorded Date/ Time Living Will No February 20 2:05pm Power of Customer Service And Sales Consultant No February 20, 2022 2:05pm Advance Directive Response Recorded Date/ Time Living Will No February 20 3:05pm Power of Customer Service And Sales Consultant No February 20, 2022 3:05pm Advance Directive Response Recorded Date/ Time Living Will No January 25, 2 023 4:09pm Power of Customer Service And Sales Consultant No January 25, 2023 4:09pm Summary Purpose Additional Source Comments Goals (unrecognized section and content) Goals may be documented in a n alternate sectionGoals may be documented in an alternate sectionGoals may be documented in an alternate sectionGoals may be documented in an alternate sectionGoals may be documented in an alternate sectionGoals may be documented in an alternate sectionGoals may be documented in an alternate sectionGoals may be documented in an alternate section Care Teams (unrecognized sec tion and content) Team Status: Active Member Role Status Dates Dr. Amari Carter MD Family Provider Active Dr. Dayami Anderson MD Primary Care Provider Active Team Status: Inactive Member Role Status Dates Dr. Dayami Anderson MD Primary Care Provider, Referrin g Provider Active Jina Woods GREENS CUTTER, GREENS CUTTER-C Attending Provider Active Team Status: Inactive Member Role Status Dates Dr. Dayami Anderson MD Primary Care Provider, Referrin g Provider Active Dr. Taurus Coyle DO Attending Provider Active Team Status: Inactive Member Role Status Dates Dr. Dayami Anderson MD Primary Care Provider Active Jina Woods GREENS CUTTER, GREENS CUTTER-C Attending Provider, Referring P rovider Active Team Status: Active Member Role Status Dates Dr. Dayami Anderson MD Primary Care Provider Active Dr. Taurus Coyle DO Attending Provider, Referring P rovider Active Team Status: Inactive Member Role Status Dates Dr. Dayami Anderson MD Primary Care Provider Active Dr. Taurus Coyle DO Attending Provider, Referring P rovider Active Team Status: Active Member Role Status Dates Dr. Dayami Anderson MD Primary Care Provider Active Health Risk Assessment Attending Provider, Referring P rovider Active Team Status: Inactive Member Role Status Dates Dr. Dayami Anderson MD Primary Care Provider Active Dr. Hemal Reddy MD Emergency Provider Active Team Status: Inactive Member Role Status Dates Dr. Dayami Anderson MD Primary Care Provider Active Start: July 04, 2024 End: July 04, 2024 Dr. Dayami Anderson MD Referring Provider Active Start: July 04, 2024 End: July 04, 2024 Karla Gooden PA, PA Attending Provider Active Start: July 04, 2024 End: July 04, 2024 Team Status: Active Member Role/Relationship Status Dates Dr. Amari Carter MD Family Provider Active Dr. Dayami Anderson MD Primary Care Provider Active Team Status: Inactive Member Role/Relationship Status Dates Dr. Dayami Anderson MD Primary Care Provider Active Start: July 04, 2024 End: July 04, 2024 Dr. Dayami Anderson MD Referring Provider Active Start: July 04, 2024 End: July 04, 2024 Karla SARABIA PA Attending Provider Active Start: July 04, 2024 End: July 04, 2024 Team Status: Inactive Member Role/Relationship Status Dates Dr. Dayami Anderson MD Primary Care Provider Active Start: October 04, 2024 End: October 04, 2024 Dr. Dayami Anderson MD Referring Provider Active Start: October 04, 2024 End: October 04, 2024 Karla SARABIA PA Attending Provider Active Start: October 04, 2024 End: October 04, 2024 Team Status: Active Member Role/Relationship Status Dates Dr. Amari Carter MD Primary care physician Active Dr. Dayami Anderson MD Primary care physician Active Team Status: Inactive Member Role/Relationship Status Dates Dr. Dayami Anderson MD Primary care physician Active Start: October 04, 2024 End: October 04, 2024 Dr. Dayami Anderson MD Referring Provider Active Start: October 04, 2024 End: October 04, 2024 Karla SARABIA PA Attending physician Active Start: October 04, 2024 End: October 04, 2024 Team Status: Active Member Role/Relationship Status Dates Dr. Dayami Anderson MD Primary care physician Active Start: November 09, 2024 Dr. Dayami Anderson MD Attending physician Active Start: November 09, 2024 Dr. Dayami Anderson MD Referring Provider Active Start: November 09, 2024 Team Status: Inactive Member Role/Relationship Status Dates Dr. Dayami Anderson MD Primary care physician Active Start: November 09, 2024 End: November 09, 2024 Dr. Dayami Anderson MD Referring Provider Active Start: November 09, 2024 End: November 09, 2024 Karla SARABIA, PA Attending physician Active Start: November 09, 2024 End: November 09, 2024 (unrecognized sect ion and content) No Status Records Found INFORMATION SOURCE (unrecogn ized section and content) DATE CREATED AUTHOR 11/17/2024 [facility] FOR RECORDS PERTAINING TO PATIENTS WHO ARE OR HAVE BEEN ENROLLED IN A CHEMICAL DEPENDENCY/SUBSTANCEABUSE PROGRAM, SOME INFORMATION MAY BE OMITTED. This clinical summary was aggregated from multiple sources. Caution should be exercised in using it in the provision of clinical care. This summary normalizes information from multiple sources, and as a consequence, information in this document may materially change the coding, format and clinical context of patient data. In addition, data may be omitted in some cases. CLINICAL DECISIONS SHOULD BE BASED ON THE PRIMARY CLINICAL RECORDS. [employer] provides no warranty or guarantee of the accuracy or completeness of information in this document.
[2024-11-24] MEDS: 0.9% Normal Saline (1000mL) 1,000 ML 999 ML IV (05:13)
[2024-11-24 05:35] LABS: Troponin T High Sensitivity 6 ng/L (<=22)
[2024-11-24 05:37] LABS: Anion Gap 15 (5-15); BUN 23 mg/dL (4-19); BUN/Creat Ratio 25.5 RATIO (10-20); Calcium,Total 9.8 mg/dL (7.6-11.0); Carbon Dioxide 23.5 mmol/L (21.0-32.0); Chloride 102 mmol/L (98-108); Estimated Creatinine Clearance 93.34 ml/min (50-250); Glucose 131 mg/dL (70-99); Magnesium 2.3 mg/dL (1.5-2.2); Potassium 3.4 mmol/L (3.3-5.1)
[2024-11-24 05:40] VITALS: BP 145/81; PULSE 78; RESP 18; TEMP 36.4; O2SAT 98
[2024-11-24 06:18] VITALS: BP 141/84; PULSE 75; RESP 18; TEMP 36.6; O2SAT 96
== END 2024-11-24 06:44 | disposition home or self-care (01) ==
PROVIDERS: Emergency Provider Emergency Medicine; PCP Family Medicine; Visit Provider Emergency Medicine
DX: H81.399 Other peripheral vertigo, unspecified ear (principal); I25.10 Atherosclerotic heart disease of native coronary artery without angina pectoris; Z87.891 Personal history of nicotine dependence; E78.5 Hyperlipidemia, unspecified; I10 Essential (primary) hypertension; K21.9 Gastro-esophageal reflux disease without esophagitis
CPT/HCPCS: 70450; 80048; 83735; 84484; 85025; 93005; 96361; 96374; 99282; A4216; J2405

== ENCOUNTER → 2024-12-01 | Outpatient (CLI) | payer OTHER, SELFPAY ==
--- NOTE | 2024-12-01 07:49 | RDU_ITS ---
Reason For Study Reason For Study: HTN Right Renal Artery Left Renal Artery Right renal artery ostium 149/39 RSV/EDV. Left renal artery ostium 113/30 PSV/EDV. Right renal artery proximal 201/52 Left renal artery proximal PSV/EDV PSV/EDV. 127/24 . Right renal artery mid 196/46 PSV/EDV. Left renal artery mid 226/58 PSV/EDV . Right renal artery distal 151/43 PSV/EDV. Left renal artery distal 277/80 PSV/EDV. Right RAR 2.23. Left RAR 3.08. Right Renal Parenchyma Left Renal Parenchyma Upper Pole Medula 56/14 PSV/EDV. Left upper pole medulla 29/9 PSV/EDV . Right upper pole medulla EDR 0.25 . Left upper pole medulla EDR 0.31 . Right upper pole medulla R.I. 0.75 . Left upper pole medulla R.I. 0.68 . Upper Zoltan Cortx 23/6 PSV/EDV. UP Cortex 19/8 PSV/EDV. Right upper pole cortex EDR 0.26 . Left upper pole cortex EDR 0.42 . Right upper pole cortex R.I. 0.74 . Left upper pole cortex R.I. 0.61 . Right lower Pole medulla 21/7 PSV/EDV . Left lower Pole medulla 45/15 PSV/EDV . Right lower pole medulla EDR 0.33 . Left lower pole medulla EDR 0.33 . Right lower pole medulla R.I. 0.65 . Left lower pole medulla R.I. 0.68 . Lower Pole Cortex 36/12 PSV/EDV. Lower Pole Cortx 25/10 PSV/EDV. Right lower pole cortex EDR 0.33 . Left lower pole cortex EDR 0.40 . Right lower pole cortex R.I. 0.66 . Left lower pole cortex R.I. 0.61 . Right Renal Hilar Left Renal Hilar Right Hilar avg 162/42 PSV/EDV. LT Hilar avg 134/38 PSV/EDV . Right hilar acceleration time 50 m/sec. Left hilar acceleration time 30 m/sec. Right Renal Dimensions Left Renal Dimensions Right kidney size 11.56 cm . Left kidney size 11.95 cm . Right cortical dimension 1.64 cm . Left cortical dimension 1.52 cm . Aorta Proximal abdominal aorta 2.29cm x 2.43 cm . Proximal abdominal aorta peak systolic velocity is 90 cm/sec . Distal abdominal aorta 1.45cm x 1.47 cm . Distal abdominal aorta peak systolic velocity is 87 cm/sec . VL/Renal Artery Duplex Ultrasound Interpretation Summary Right renal artery patent with < 60% stenosis. Left renal artery patent with < 60% stenosis. Right renal vein patent. Left renal vein patent. Right kidney normal in size. Left kidney normal in size. Ordering Physician: Karla Gooden Referring Physician: Dayami Mata Performed By: Kari Christopher, CHING, RVT
== END | disposition home or self-care (01) ==
LOC: CVS 07:49
PROVIDERS: PCP Family Medicine; Referring Provider Physician Assistant Medical; Visit Provider Physician Assistant Medical
DX: I10 Essential (primary) hypertension (principal)
CPT/HCPCS: 93975

== ENCOUNTER → 2024-12-15 | Outpatient (CLI) | payer OTHER, SELFPAY ==
--- OUTSIDE RECORDS SUMMARY | 2024-12-15 07:40 | XMS RPT_ITS | CCD ---
Author Organization [facility] Care Team Providers Care Special Forces Specialist Name Role Phone Dr. Dayami Anderson Primary Care Provider [phone] Dr. Dayami Anderson Referring Provider Chuck HERRERA, BETZY Muro Attending Provider Dr. Taurus Coyle Attending Provider Dr. Dayami Anderson Primary Care Provider [phone] Dr. Dayami Anderson Referring Provider Dr. Taurus Coyle Attending Provider Dr. Dayami Anderson MD Primary Care Provider Dr. Dayami Anderson MD Referring Provider [phone] Karla Ca Attending Provider Dr. Dayami Anderson MD Primary Care Physician Dr. Dayami Anderson MD Referring Provider [phone] Karla Ca Attending Physician Dr. Dayami Anderson MD Attending Physician Karla Ca Referring Provider Dr. Calvin Yanes MD Attending Physician Dr. Rowdy Hansen DO Attending Physician Dr. Rowdy Hansen DO Emergency Department Physic dayanara Dr. Pato Harkins MD Attending Physician Pato Harkins Attending Unavailable Karla Ca Referring Unavail able Miedel, Dayami Primary Care Unavailable Miedel, Dayami Primary Care Unavailable Karla Ca Attending Unavail able Miedel, Dayami Referring Unavailable Karla Ca Attending Unavail able Miedel, Dayami Primary Care Unavailable Miedel, Dayami Referring Unavailable Miedel, Dayami Primary Care Unavailable Karla Ca Attending Unavail able Miedel, Dayami Referring Unavailable Miedel, Dayami Primary Care Unavailable Karla Ca Attending Unavail able Karla Ca Referring Unavail able Miedel, Dayami Primary Care Unavailable Miedel, Dayami Attending Unavailable Miedel, Dayami Referring Unavailable Miedel, Dayami Primary Care Unavailable Rowdy Hansen Attending Unavailable Assessment, Health Risk Attending Unavaila ble Assessment, Health Risk Referring Unavaila ble Miedel, Dayami Primary Care Unavailable Karla Ca Referring Unavail able Karla Ca Attending Unavail able Miedel, Dayami Primary Care Unavailable Miedel, Dayami Primary Care Unavailable Karla Ca Attending Unavail able Karla Ca Referring Unavail able Allergies Allergy Classification Reported Allergen(s) Allergy Type Date of Onset Reaction(s) Facility (5 sources) rosuvastatin Drug Allergy 07-04-2024 muscle aches [facility] (1 source) rosuvastatin Drug Allergy 11-24-2024 [facility] Repository Medications Current Medications Medication Drug Class(es) Dates Sig (Normalized) Sig (Original) amLODIPine 10 mg oral tablet (20 sources) Dihydropyridine Calcium Channel Davin Start: 11-02-2024 take 1 tablet by mouth once daily Start: 11-22-2018 End: 11-02-2024 take 1 tablet by mouth once daily Amlodipine (Norvasc) 5 mg tablet Discontinued 5 mg PO DAILY 90 3 November 21, 2019 4:51pm November 02, 2024 2:55pm diazePAM 5 mg oral tablet (2 sources) Benzodiazepine Start: 11-24-2024 take 1 tablet by ken three times daily as needed Start: 11-24-2024 take 1 tablet by mouth three t imes daily as needed ezetimibe 10 mg oral tablet (5 sources) Dietary Cholesterol Absorption Inhibitor Start: 07-04-2024 take 1 tablet by mouth once daily Garlic (10 sources) Non-Standardized Food Allergenic Extract Start: 01-04-2017 [...] January 04, 2017 12:00am hydroCHLOROthiazide 25 mg or al tablet (10 sources) Thiazide Diuretic Start: 01-04-2017 take 1 tablet by mouth once daily labetalol hydrochloride 100 mg oral tablet (3 sources) beta-Adrenergic Davin Start: 11-09-2024 take 1 tablet by mouth twice daily Magnesium (3 sources) Start: 11-09-2024 take 1 tablet by mouth once daily Start: 11-09-2024 take 1 tablet by ken once daily Magnesium 200 mg tablet Active 200 mg PO daily November 09, 2024 12:00am Complies with drug therapy ondansetron 4 mg disintegrating oral tablet (2 sources) Serotonin-3 Receptor Antagonist Start: 11-24-2024 take 1 tablet by mouth three times daily as needed for nausea and vomiting Start: 11-24-2024 take 1 tablet by ken th three times daily as needed for nausea and vomiting ubiquinol 100 mg oral capsul e (5 sources) Start: 08-02-2023 take 1 capsule by mo [facility] once daily Completed/Discontinued Medications Medication Drug Class(es) Dates Sig (Normalized) Sig (Original) azithromycin 250 mg oral tablet (5 sources) Macrolide Antimicrobial Start: 08-10-2023 End: 07-04-2024 Azithromycin 250 mg tablet Discontinued 250 mg PO daily 6 0 August 10, 2023 12:00am July 04, 2024 2:00pm 2 tablets today, then 1 tablet daily on days 2 through 5 candesartan cilexetil 32 mg oral tablet (10 sources) Angiotensin 2 Receptor Davin Start: 11-08-2018 End: 11-22-2018 take 1 tablet by mouth once daily Candesartan 32 mg tablet Discontinued 32 mg PO DAILY 90 6 November 08, 2018 12:00am November 22, 2018 1:13pm carvedilol 25 mg oral tablet (4 sources) alpha-Adrenergic Davin, beta-Adrenergic Davin Start: 10-04-2024 [...] 5:15pm meclizine hydrochloride 25 mg chewable tablet (10 sources) Antiemetic Start: 07-11-2021 End: 12-31-2021 take 1 tablet by mouth once daily as needed for dizziness Meclizine (Antivert) 25 mg tablet,chewable Discontinued 25 mg PO DAILY as needed for dizziness 10 July 11, 2021 12:00am December 31, 2021 2:02pm meloxicam 7.5 mg oral tablet (10 sources) Nonsteroidal Anti-inflammatory Drug Start: 12-31-2020 End: 11-09-2024 take 1 tablet by mouth once daily as needed for pain Meloxicam 7.5 mg tablet Discontinued 7.5 mg PO DAILY as needed for Pain December 31, 2020 1:00am November 09, 2024 1:50pm metoprolol tartrate 100 mg oral tablet (10 sources) beta-Adrenergic Davin Start: 01-04-2017 End: 10-04-2024 take 1 tablet by mouth twice daily Metoprolol Tartrate 100 MG tablet Discontinued 100 mg PO TWICE A DAY January 04, 2017 1:00am October 04, 2024 2:01pm predniSONE 10 mg oral tablet (5 sources) Start: 08-10-2023 End: 07-04-2024 take 1 tablet by mouth twice daily Prednisone 10 mg tablet Discontinued 10 mg PO TWICE A DAY August 10, 2023 12:00am July 04, 2024 2:01pm rosuvastatin calcium 5 mg oral tablet (10 sources) HMG-CoA Reductase Inhibitor Start: 08-02-2023 End: [...] 3:35pm traMADol hydrochloride 50 mg oral tablet (10 sources) Opioid Agonist Start: 11-04-2020 End: 12-31-2020 take 1 tablet by mouth every four to six hours as needed Tramadol 50 mg tablet Discontinued 50 mg PO .q4-6h as needed November 04, 2020 12:00am December 31, 2020 3:26pm Problems Problem Classification Problem Date Documented Date Episodic/Chronic Allergic reactions (5 sources) Unspecified contact dermatitis, unspecified cause; Translations: [Contact dermatitis of lower leg] 08-10-2023 Episodic Conditions associated with dizziness or vertigo (20 sources) Dizziness; Translations: [Dizziness and giddiness] Onset: 5 07-19-2021 Episodic Conduction disorders (12 sources) Incomplete right bundle branch block; Translations: [Unspecified right bundle-branch block] Onset: 5 10-05-2019 Chronic Coronary atherosclerosis and other heart disease (2 sources) Coronary arteriosclerosis; Translations: [Atherosclerotic heart disease of [place] coronary artery without angina pectoris] 12-02-2024 Chronic Diabetes mellitus without complication (1 source) Prediabetes; Translations: [Prediabetes] Onset: Episodic Disorders of lipid metabolism (20 sources) Hyperlipidemia; Translations: [Hyperlipidemia, unspecified] Onset: Chronic Comment on above: The patient has [...] for control. Disorders of teeth and jaw (20 sources) Loss of teeth due to extraction; Translations: [Partial loss of teeth, unspecified cause, unspecified class] 12-30-2020 Episodic Essential hypertension (20 sources) Essential hypertension; Translations: [Essential (primary) hypertension] Onset: 5 Chronic Comment on above: Patient's blood pres sure is well-controlled on multiple medications Nonspecific chest pain (3 sources) Chest pain; Translations: [Chest pain, unspecified] 11-09-2024 Episodic Other acquired deformities (10 sources) Spondylolisthesis L5/S1 level; Translations: [Spondylolisthesis, lumbosacral region] 12-30-2020 Episodic Other acquired deformities (2 sources) Spondylolisthesis, lumbosacral region; Translations: [Spondylolisthesis] 02-23-2022 Episodic Skin and subcutaneous tissue infections (5 sources) Cellulitis of lower leg; Translations: [Cellulitis of left lower limb] 08-10-2023 Episodic Results Test Name Value Interpretation Reference Range Facility Renal Artery Duplex Ultrasou ndon 12-01-2024 Renal Artery Duplex Ultrasound [facility] [address] [place] [address] Renal Artery Duplex Ultrasound 12/01/24 0813 MR#: [id number] Acct: [id number] Name: LUPIS RAMIREZ Rep #: [id number] : 1960 64 From: Pato Harkins MD Attending Dr: Karla Gooden PA Status: REG CLI Ordering Dr: Karla Gooden PA Date: 11/09 06/02 Location: CVS Sex: M C Admitted: Reason For Study Reason For Study: HTN Right Renal Artery Left Renal Artery Right renal artery ostium 149/39 RSV/EDV. Left renal artery ostium 113/30 PSV/EDV. Right renal artery proximal 201/52 Left renal artery proximal PSV/EDV PSV/EDV. 127/24 . Right renal artery mid 196/46 PSV/EDV. Left renal artery mid 226/58 PSV/EDV . Right renal artery distal 151/43 PSV/EDV. Left renal artery distal 277/80 PSV/EDV. Right RAR 2.23. Left RAR 3.08. Right Renal Parenchyma Left Renal Parenchyma Upper Pole Medula 56/14 PSV/EDV. Left upper pole medulla 29/9 PSV/EDV . Right upper pole medulla EDR 0.25 . Left upper pole medulla EDR 0.31 . Right upper pole medulla R.I. 0.75 . Left upper pole medulla R.I. 0.68 . Upper Zoltan Cortx 23/6 PSV/EDV. UP Cortex 19/8 PSV/EDV. Right upper pole cortex EDR 0.26 . Left upper pole cortex EDR 0.42 . Right upper pole cortex R.I. 0.74 . Left upper pole cortex R.I. 0.61 . Right lower Pole medulla 21/7 PSV/EDV . Left lower Pole medulla 45/15 PSV/EDV . Right lower pole medulla EDR 0.33 . Left lower pole medulla EDR 0.33 . Right lower pole medulla R.I. 0.65 . Left lower pole medulla R.I. 0.68 . Lower Pole Cortex 36/12 PSV/EDV. Lower Pole Cortx 25/10 PSV/EDV. Right lower pole cortex EDR 0.33 . Left lower pole cortex EDR 0.40 . Right lower pole cortex R.I. 0.66 . Left lower pole cortex R.I. 0.61 . Right Renal Hilar Left Renal Hilar Right Hilar avg 162/42 PSV/EDV. LT Hilar avg 134/38 PSV/EDV . Right hilar acceleration time 50 m/sec. Left hilar acceleration time 30 m/sec. Right Renal Dimensions Left Renal Dimensions Right kidney size 11.56 cm . Left kidney size 11.95 cm . Right cortical dimension 1.64 cm . Left cortical dimension 1.52 cm . Aorta Proximal abdominal aorta 2.29cm x 2.43 cm . Proximal abdominal aorta peak systolic velocity is 90 cm/sec . Distal abdominal aorta 1.45cm x 1.47 cm . Distal abdominal aorta peak systolic velocity is 87 cm/sec . VL/Renal Artery Duplex Ultrasound Interpretation Summary Right renal artery patent with < 60% stenosis. Left renal artery patent with < 60% stenosis. Right renal vein patent. Left renal vein patent. Right kidney normal in size. Left kidney normal in size. Ordering Physician: Karla Gooden Referring Physician: Dayami Anderson Performed By: Kari Christopher, CHING, RVT 12/04/24832 Date Pato Harkins MD CC: Dr. Dayami Anderson MD; CORNELL Hill Date Dictated: 12/01/24812 Date Transcribed: 12/04/24832 Roller Skates Assembler: Signed Normal [facility] Catecholamines, Plasmaon DOPAMINE <10.0 Normal 0.0-36.7 [facility] Comment on above: Order Comment: Test( s) 504927-Oxkmrhyokifyei; 280939-Lobepffyzbt; 427498-Duopofipjie developed and its performance characteristicsdetermined by [employer]. It has not been cleared or approvedby the Food and Drug Administration. Result Comment: Seema cholamines, Plasma reference intervals based on patient in supine position for at least 20 minutes. Performed By: #### L 3400.4000, L3430.0100 ####[facility] [address] [place], [place], [id number] EPINEPHRINE 64.0 pg/mL Abnormal 0.0-55.4 [facility] Comment on above: Order Comment: Test( s) [id number]-Lajppdexxiuivz; 560899-Lrqoootjpfx; 591226-Ejkmikjuvaq developed and its performance characteristicsdetermined by [facility]. It has not been cleared or approvedby the Food and Drug Administration. Performed By: #### L 3400.4000, L3430.0100 ####[facility] [address] [place], [place], [id number] NOREPINEPHRINE 296 pg/mL Normal 115-524 [facility] Comment on above: Order Comment: Test( s) 180741-Ybizllyrayzrlo; 161381-Prvgoupmqfk; 139081-Qvixlrlcywx developed and its performance characteristicsdetermined by [facility]. It has not been cleared or approvedby the Food and Drug Administration. Performed By: #### L 3400.4000, L3430.0100 ####[facility] [address] [place], [place], [id number] Renin, Plasmaon 11-28-2024 RENIN, PLASMA 7.470 ng/mL/hr High 0.167-5.380 [facility] Comment on above: Order Comment: Test( s) 715284-Mrqveqyjrctmte; 738984-Oelosferuav; 086339-Yxpefhpwdxt developed and its performance characteristicsdetermined by [facility]. It has not been cleared or approvedby the Food and Drug Administration. Result Comment: Perf ormed at: - [facility] [id number] Rn Cardiology: Jonny Arteaga MD, Phone: [phone] Performed By: #### L 3400.4000, L3430.0100 ####[facility] [address] [place], [place], [id number] Absolute lymphocyte countOrd ered By: Rowdy Hansen on 11-24-2024 Lymphocytes Auto (Unsp spec) [#/Vol] 2.06 10*3/uL 0.83-4.51 [facility] Absolute neutrophil countOrd ered By: Rowdy Hansen on 11-24-2024 Neutrophils (Bld) [#/Vol] 4.5 10*3/uL 2.0-7.7 [facility] Anion gap in Serum or Plasma Ordered By: Rowdy Hansen on 11-24-2024 Anion gap [Moles/Vol] 15 mmol/L 5-15 [facility] Automated lymphocyte count a s percentage of total leukocytesOrdered By: Rowdy Hansen on 11-24-2024 Lymphocytes/100 WBC Auto (Unsp spec) 25.9 % [facility] BUN/creatinine ratioOrdered By: Rowdy Hansen on 11-24-2024 Urea nitrogen/Creatinine [Mass ratio] 25.5 mg/mg High 11-27 [facility] Basic Metabolic Profile (BMP )on 11-24-2024 BUN/CRE 25.5 RATIO High 11-27 [facility] Comment on above: Performed By: #### L 501.5200, L500.2500 #### [facility] [address] [place], [address] Calcium [Mass/Vol] 9.8 mg/dL Normal 7.6-11.0 [facility] Comment on above: Performed By: #### L 501.5200, L500.2500 #### [facility] [address] [place], [address] Chloride [Moles/Vol] 102 mmol/L Normal 98-108 [facility] Comment on above: Performed By: #### L 501.5200, L500.2500 #### [facility] [address] [place], [address] CO2 [Moles/Vol] 23.5 mmol/L Normal 21.0-32.0 [facility] Comment on above: Performed By: #### L 501.5200, L500.2500 #### [facility] [address] [place], [address] Creatinine [Mass/Vol] 0.89 mg/dL Normal 0.70-1.20 [facility] Comment on above: Performed By: #### L 501.5200, L500.2500 #### [facility] [address] [place], [address] ECRCL 93.34 ml/min Normal 50-250 [facility] Comment on above: Performed By: #### L 501.5200, L500.2500 #### [facility] [address] [place], [address] GAP 15 Normal 5-15 [facility] Comment on above: Performed By: #### L 501.5200, L500.2500 #### [facility] [address] [place], [address] GFR/1.73 sq M.predicted among non-blacks MDRD (S/P/Bld) [Vol rate/Area] 96 mL/min/{1.73_m2} Normal >60 [facility] Comment on above: Result Comment: mL/m in/1.73m2 CKD-EPI Creatinine Equation (2020) Performed By: #### L 501.5200, L500.2500 #### [facility] [address] [place], [address] Glucose [Mass/Vol] 131 mg/dL High 70-99 [facility] Comment on above: Performed By: #### L 501.5200, L500.2500 #### [facility] [address] [place], [address] Potassium [Moles/Vol] 3.4 mmol/L Normal 3.3-5.1 [facility] Comment on above: Result Comment: Hemo lysis present, Results??could be affected. ?? Performed By: #### L 501.5200, L500.2500 #### [facility] [address] [place], [address] Sodium [Moles/Vol] 140 mmol/L Normal 133-145 [facility] Comment on above: Performed By: #### L 501.5200, L500.2500 #### [facility] [address] [place], [address] Urea nitrogen [Mass/Vol] 23 mg/dL High 4-19 [facility] Comment on above: Performed By: #### L 501.5200, L500.2500 #### [facility] [address] [place], [address] Basophil percentageOrdered B y: Rowdy Hansen on 11-24-2024 Basophils/100 WBC (Bld) 0.6 % 0-1 [facility] Brain/Head without Contrasto n 11-24-2024 Brain/Head without Contrast [facility] Services [address] [place] [address] Brain/Head without Contrast MR#: [id number] Acct: [id number] Name: LUPIS RAMIREZ Rep #: [id number] : 1960 M 64 From: Lis vega MD PCP: Dr. Dayami Anderson MD Status: REG ER Study: Brain/Head without Contrast Date of Exam: 11/08 09/01 Exam# [id number] Ordering Dr: Rowdy Hansen DO PROCEDURE: BRAIN/HEAD WITHOUT CONTRAST 11/24/2024 REASON FOR EXAM: DIZZINESS TECHNIQUE: Procedure Code: CTBR Modality: CT Procedure: BRAIN/HEAD WITHOUT CONTRAST Coronal and Sagittal reconstruction series were provided. One or more dose reduction techniques were used (e.g., Automated exposure control, adjustment of the mA and/or kV according to patient size, use of iterative reconstruction technique. RADIATION DOSE SUMMARY: CTDI Vol 44.99 mGy DLP :846.73 mGycm COMPARISON: 11-Jul-2021 FINDINGS: The visualized brain parenchyma shows normal appearance. No focal parenchymal abnormalities are demonstrated. Escobar-white matter differentiation is maintained. Normal CT appearance of the posterior fossa structures. No intracerebral or extra-axial hemorrhage. No midline shifts or deformity. Normal size and configuration of the cerebral ventricles. Mild asymmetry of the lateral ventricles, possibly developmental. Prominent fronto-parietal extra-axial CSF spaces. No definite calvarial fractures. The osseous structures in the skull base are unremarkable. Paranasal sinuses are unremarkable. CT/Brain/Head without Contrast IMPRESSION: No intracerebral or extra-axial hemorrhage. No acute cerebrovascular insult. If clinical symptoms persist, further evaluation with MRI may be considered as clinically warranted. Reading Location: [place] [address] CC: Dr. Dayami Anderson MD; Rowdy Hnasen DO Roller Skates Assembler: Signed Normal [facility] CBC W/Diff, Automatedon 11-08 Absolute Lymph 2.06 X10 3/uL Normal 0.83-4.51 [facility] Comment on above: Performed By: #### L 100.0100, L501.4021 #### [facility] [address] [place], [address] Absolute Neut 4.5 X10 3/uL Normal 2.0-7.7 [facility] Comment on above: Performed By: #### L 100.0100, L501.4021 #### [facility] [address] [place], [address] Basophils/100 WBC (Bld) 0.6 % Normal 0-1 [facility] Comment on above: Performed By: #### L 100.0100, L501.4021 #### [facility] [address] [place], [address] Eosinophils/100 WBC (Bld) 3.3 % Normal 0-5 [facility] Comment on above: Performed By: #### L 100.0100, L501.4021 #### [facility] [address] [place], [address] Erythrocyte distribution width (RBC) [Ratio] 12.0 % Normal 11.6-14.6 [facility] Comment on above: Performed By: #### L 100.0100, L501.4021 #### [facility] [address] [place], [address] Hematocrit (Bld) [Volume fraction] 45.4 % Normal 40-54 [facility] Comment on above: Performed By: #### L 100.0100, L501.4021 #### [facility] [address] [place], [address] Hemoglobin (Bld) [Mass/Vol] 15.8 g/dL Normal 13.0-16.5 [facility] Comment on above: Performed By: #### L 100.0100, L501.4021 #### [facility] [address] [place], [address] IG% 0.400 Normal 0.0-0.9 [facility] Comment on above: Result Comment: IG% - Immature Granulocytes (promyelocytes, myelocytes and metamyelocytes) > 1% indicates that a LEFT SHIFT is Present. Performed By: #### L 100.0100, L501.4021 #### [facility] [address] [place], [address] Lymphocytes/100 WBC (Bld) 25.9 % Normal 19-41 [facility] Comment on above: Performed By: #### L 100.0100, L501.4021 #### [facility] [address] [place], [address] MCH (RBC) [Entitic mass] 31.0 pg Normal 27.0-32.0 [facility] Comment on above: Performed By: #### L 100.0100, L501.4021 #### [facility] [address] [place], [address] MCHC (RBC) [Mass/Vol] 34.8 g/dL Normal 32-36 [facility] Comment on above: Performed By: #### L 100.0100, L501.4021 #### [facility] [address] [place], [address] MCV (RBC) [Entitic vol] 89.0 fL Normal 80-94 [facility] Comment on above: Performed By: #### L 100.0100, L501.4021 #### [facility] [address] [place], [address] Monocytes/100 WBC (Bld) 13.1 % High 0-10 [facility] Comment on above: Performed By: #### L 100.0100, L501.4021 #### [facility] [address] [place], [address] Neutrophils/100 WBC (Bld) 56.7 % Normal 47-70 [facility] Comment on above: Performed By: #### L 100.0100, L501.4021 #### [facility] [address] [place], [address] Nucleated RBC (Bld) [#/Vol] 0 10*3/uL Normal 0-5 [facility] Comment on above: Performed By: #### L 100.0100, L501.4021 #### [facility] [address] [place], [address] Platelet mean volume (Bld) [Entitic vol] 9.3 fL Normal 6.2-12.0 [facility] Comment on above: Performed By: #### L 100.0100, L501.4021 #### [facility] [address] [place], [address] Platelets (Bld) [#/Vol] 246 10*3/uL Normal 150-450 [facility] Comment on above: Performed By: #### L 100.0100, L501.4021 #### [facility] [address] [place], [address] RBC (Bld) [#/Vol] 5.10 10*6/uL Normal 4.6-6.2 [facility] Comment on above: Performed By: #### L 100.0100, L501.4021 #### [facility] [address] [place], [address] RDW SD 39.5 fl Normal 35.1-43.9 [facility] Comment on above: Performed By: #### L 100.0100, L501.4021 #### [facility] [address] [place], [address] WBC (Bld) [#/Vol] 8.0 10*3/uL Normal 4.4-11.0 [facility] Comment on above: Performed By: #### L 100.0100, L501.4021 #### [facility] [address] [place], [address] Carbon dioxide, total [Moles /volume] in Central venous bloodOrdered By: Rowdy Hansen on 11-24-2024 CO2 [Moles/Vol] 23.5 mmol/L 21.0-32.0 [facility] Chloride assayOrdered By: Jocelynn Hansen on 11-24-2024 Chloride [Moles/Vol] 102 mmol/L 98-108 [facility] Emergency Department Summary on 11-24-2024 Emergency Department Summary [facility] Medical Records Department [address] [place] [address] Emergency Department Summary 11/24/24 MR#: [id number] Acct: [id number] Name: JAMESLUPIS Rep #: [id number] : 1960 64 From: Rowdy Hansen DO PCP: Dr. Dayami Anderson MD Status:REG ER Location: ED HPI History of Present Illness Chief Complaint: Dizziness Informant: patient Narrative Narrative: Patient is a 64-year-old male with past medical history of hypertension hyperlipidemia and CAD. He states he went to bed normally and then awoke roughly an hour prior to arrival. He states he awoke and felt immediately "dizzy". He describes the dizziness as a sense of motion and stated it made him very nauseous. He states he went to the bathroom as he felt he was going to vomit. He states he was unsure if maybe he had food poisoning as he also thought he had to have a bowel movement. He states he sat on the toilet but did not produce really any stool and the nausea continue with just dry heaves. He states the dizziness seems to improve with rest but as soon as he looks around or moves that it returns. He states he is unsure if this is related to his hypertension or could be related to his history of coronary artery disease. He states he has had vertigo in the past and this does feel somewhat similar nature but he also feels it is more severe/intense. Therefore he presents to the ER for evaluation [facility] Medical History Stage 2 hypertension Cellulitis of left lower leg Contact dermatitis of lower leg Incomplete right bundle branch block Essential (primary) hypertension GERD (gastroesophageal reflux disease) Chest pain History of tobacco use Home Medications ???Medication ???Instructions ???Recorded ???Last Taken ???Type hydrochlorothiazide 25 mg tablet 25 mg PO DAILY 01/04/17 11/29/19 H istory coQ10 (ubiquinol) 100 mg capsule 100 mg PO DAILY 08/02/23 Unknown H istory (Qunol Zane CoQ10) ezetimibe 10 mg tablet (Zetia) 10 mg PO QDAY #90 tabs 07/04/24 Un known Rx losartan 100 mg tablet 100 mg PO DAILY #90 tabs 09/06/24 Unknown Rx amlodipine 10 mg tablet 10 mg PO DAILY #90 tabs 11/02/24 U nknown Rx labetalol 100 mg tablet 100 mg PO BID #60 tabs 11/09/24 Un known Rx magnesium 200 mg tablet 200 mg PO QDAY 11/09/24 Unknown Hi story diazepam 5 mg tablet (Valium) 5 mg PO TID PRN vertigo 5 days #15 11/24/24 Unknown Rx tabs ondansetron 4 mg disintegrating 4 mg PO TID PRN nausea and 5 Unknown Rx tablet vomiting #21 tabs Allergy/AdvReac Type Severity Reaction Status Date / Time rosuvastatin (From Crestor) AdvReac Intermediate muscle Verified 11/24/24 04:41 aches Family History Father CAD (coronary artery disease) Hypertension Heart disease Myocardial infarction Macular degeneration Mother CAD (coronary artery disease) Heart disease Diabetes Breast cancer Brother Hypertension Surgical History H/O tooth extraction History of colonoscopy (01/2017) History of tonsillectomy and adenoidectomy Social History household members: children housing: house current occupational status: employed current occupation: [employer] with [employer] pets and animals: Yes pets and animals: cat(s), dog(s) and bird(s) Smoking Status: Former smoker how long ago did patient quit smokin years ago alcohol intake: never substance use type: does not use what type of physical activity do you participate in: none do you feel safe at home: Yes ROS ROS ED Constitutional Constitutional ED: Denies chills or fever(s) Eyes Eyes: Denies blurry vision or change in vision ENT ENT ED: Denies sore throat Cardiovascular Cardiovascular: Denies chest pain, palpitations or racing heartbeat Respiratory/Chest Respiratory/Chest: Denies cough or dyspnea Gastrointestinal Gastrointestinal: Reports nausea; Denies abdominal pain, diarrhea or vomiting Genitourinary Genitourinary ED: Denies dysuria Musculoskeletal Musculoskeletal: Denies back pain, myalgias or neck pain Integumentary Denies rash Neurologic Neurologic: Reports other Details: Positive dizziness ; Denies headache(s) Hematologic/Lymphatic Hematologic/Lymphatic: Denies easy bleeding or easy bruising EXAM Physical Exam Const Vital Signs: 11/24/24 04:41 11/24/24 04:44 11/24/24 05:40 Temperature 97.3 F L 97.3 F L 97.6 F L Temperature Source Oral Oral Oral Pulse Rate 71 75 78 Respiratory Rate 18 18 18 Blood Pressure 159/97 H 159/97 H 145/81 H Blood Pressure Mean 117 117 102 Pulse Ox 98 98 98 Oxygen Delivery Method Room Air Room Air Room Air Positive well nourish (more content not included)... Normal [facility] Eosinophil percentageOrdered By: Rowdy Hansen on 11-24-2024 Eosinophils/100 WBC (Bld) 3.3 % 0-5 [facility] Erythrocyte distribution wid th ratioOrdered By: Rowdy Hansen on 11-24-2024 Erythrocyte distribution width (RBC) [Ratio] 12.0 % 11.6-14.6 [facility] Erythrocyte distribution wid th standard deviationOrdered By: Rowdy Hansen on 11-24-2024 Erythrocyte distribution width (RBC) [Ratio] 39.5 fl 35.1-43.9 [facility] Glomerular filtration rate ( GFR) estimation/1.73 sq m using serum, plasma, or whole bOrdered By: Rowdy Hansen on 11-24-2024 GFR/1.73 sq M.predicted among non-blacks MDRD (S/P/Bld) [Vol rate/Area] 96 mL/min/{1.73_m2} >60 [facility] Comment on above: mL/min/1.73m2 CKD-EP I Creatinine Equation (2020) Hematocrit Auto (Bld) [Volum e fraction]Ordered By: Rowdy Hansen on 11-24-2024 Hematocrit (Bld) [Volume fraction] 45.4 % 40-54 [facility] Hemoglobin measurementOrdere d By: Rowdy Hansen on 11-24-2024 Hemoglobin (Bld) [Mass/Vol] 15.8 g/dL 13.0-16.5 [facility] Immature granulocytes/100 WB C Auto (Bld)Ordered By: Rowdy Hansen on 11-24-2024 Immature granulocytes/100 WBC (Bld) 0.400 % 0.0-0.9 [facility] Comment on above: IG% - Immature Granu locytes (promyelocytes, myelocytes and metamyelocytes) > 1% indicates that a LEFT SHIFT is Present. L501.4021on 11-24-2024 Trop T High Sen 6 ng/L Normal <=22 [facility] Comment on above: Performed By: #### L 100.0100, L501.4021 #### [facility] [address] [place], [address] MCV (mean corpuscular volume ) determinationOrdered By: Rowdy Hansen on 11-24-2024 MCV (RBC) [Entitic vol] 89.0 fL 80-94 [facility] Magnesiumon 11-24-2024 Magnesium [Mass/Vol] 2.3 mg/dL High 1.5-2.2 [facility] Comment on above: Performed By: #### L 501.5200, L500.2500 #### [facility] [place], [address] Magnesium measurement (mass/ volume)Ordered By: Rowdy Hansen on 11-24-2024 Magnesium (Unsp spec) [Mass/Vol] 2.3 mg/dL High 1.5-2.2 [facility] Mean corpuscular hemoglobin (MCH) determinationOrdered By: Rowdy Hansen on 11-24-2024 MCH (RBC) [Entitic mass] 31.0 pg 27.0-32.0 [facility] Mean corpuscular hemoglobin concentration (MCHC) determinationOrdered By: Rowdy Hansen on 11-24-2024 MCHC (RBC) [Mass/Vol] 34.8 g/dL 32-36 [facility] Mean platelet volume determi nationOrdered By: Rowdy Hansen on 11-24-2024 Platelet mean volume (Bld) [Entitic vol] 9.3 fL 6.2-12.0 [facility] Monocyte percentageOrdered B y: Rowdy Hansen on 11-24-2024 Monocytes/100 WBC (Bld) 13.1 % High 0-10 [facility] Neutrophil percentageOrdered By: Rowdy Hansen on 11-24-2024 Neutrophils/100 WBC (Bld) 56.7 % 47-70 [facility] Nucleated red blood cell per centageOrdered By: Rowdy Hansen on 11-24-2024 Nucleated RBC/100 WBC (Bld) [Ratio] 0 % 0-5 [facility] Platelet countOrdered By: Jocelynn Hansen on 11-24-2024 Platelets (Bld) [#/Vol] 246 10*3/uL 150-450 [facility] Potassium measurement (mass/ volume)Ordered By: Rowdy Hansen on 11-24-2024 Potassium (Unsp spec) [Mass/Vol] 3.4 mmol/L 3.3-5.1 [facility] Comment on above: Hemolysis present, R esults could be affected. RBC Auto (Bld) [#/Vol]Ordere d By: Rowdy Hansen on 11-24-2024 RBC (Bld) [#/Vol] 5.10 10*6/uL 4.6-6.2 [facility] Serum creatinine measurement (mass/volume)Ordered By: Rowdy Hansen on 11-24-2024 Creatinine [Mass/Vol] 0.89 mg/dL 0.70-1.20 [facility] Serum glucose measurement (m ass/volume)Ordered By: Rowdy Hansen on 11-24-2024 Glucose [Mass/Vol] 131 mg/dL High 70-99 [facility] Serum or plasma calcium dianne urement (mass/volume)Ordered By: Rowdy Hansen on 11-24-2024 Calcium [Mass/Vol] 9.8 mg/dL 7.6-11.0 [facility] Serum or plasma urea nitroge n measurement (mass/volume)Ordered By: Rowdy Hansen on 11-24-2024 Urea nitrogen [Mass/Vol] 23 mg/dL High 4-19 [facility] Sodium levelOrdered By: Jace Hansen on 11-24-2024 Sodium [Moles/Vol] 140 mmol/L 133-145 [facility] Troponin T.cardiac [Mass/vol ume] in Serum or Plasma by High sensitivity methodOrdered By: Rowdy Hansne on 11-24-2024 Troponin T.cardiac High sensitivity method [Mass/Vol] 6 ng/L <22 [facility] White blood cell (WBC) count Ordered By: Rowdy Hansen on 11-24-2024 WBC (Bld) [#/Vol] 8.0 10*3/uL 4.4-11.0 [facility] Plasma epinephrine measureme nt (mass/volume)Ordered By: Karla Gooden on 11-16-2024 EPINEPHrine (P) [Mass/Vol] 64.0 pg/mL High 0.0-55.4 [facility] Plasma norepinephrine measur ement (mass/volume)Ordered By: Karla Gooden on 11-16-2024 Norepinephrine (P) [Mass/Vol] 296 pg/mL 115-524 [facility] Plasma renin activityOrdered By: Karla Gooden on 11-16-2024 Renin (P) [Catalytic activity/Vol] 7.470 ng/mL/hr High 0.167-5.380 [facility] Comment on above: Performed at: [address] [place], [place] [id number] Director: Jonny Arteaga MD, Phone: [phone] Serum or plasma dopamine denise surement (mass/volume)Ordered By: Karla Gooden on 11-16-2024 DOPamine [Mass/Vol] <10.0 pg/mL 0.0-36.7 [facility] Comment on above: Catecholamines, Plas ma reference intervals based on patientin supine position for at least 20 minutes. Coronary Angiography CTon Coronary Angiography CT [facility] Services [address] [place] [address] 11/15/24 1614 MR#: [id number] Acct: [id number] Name: JAMESLUPIS MCCOY Alhaji Rep #: [id number] : 1960 64 From: Calvin Yanes MD [...] with mild amount of plaque disease noted. 10/08/25 1615 Date Calvin Yanes MD Cosigner Signature (if applicable): Date CC: Dr. Calvin Yanes MD; Dr. Dayami Anderson MD; CORNELL Hill Signed Normal [facility] Limited Chest CT Cardiac Onl yon 11-15-[address] Cardiac Only [facility] Services [address] [place] [address] Cardiac Only MR#: [id number] Acct: [id number] Name: LUPIS RAMIREZ Rep #: [id number] : 1960 M 64 From: Jose Alberto Mane PCP: Dr. Dayami Anderson MD Status: REG REF Study: Limited Chest CT Cardiac Only Date of Exam: Exam# [id number] Ordering Dr: Karla Gooden PROCEDURE: LIMITED CHEST [...] abdomen demonstrates no significant abnormality. Reading Location: [place] [address] CC: Dr. Dayami Anderson MD; CORNELL Hill Roller Skates Assembler: Signed Normal [facility] Bilirubin directOrdered By: Karla Gooden on 11-09-2024 Bilirubin.direct [Mass/Vol] 0.39 mg/dL High 0.00-0.30 [facility] Bilirubin, totalOrdered By: Karla Gooden on 11-09-2024 Bilirubin [Mass/Vol] 1.07 mg/dL 0.00-1.30 [facility] Calculated very low density lipoprotein (VLDL) cholesterol measurementOrdered By: Karla Gooden on 11-09-2024 Calculated very low density lipoprotein (VLDL) cholesterol measurement 22 mg/dL 5-40 [facility] Cardiology Visit Reporton Cardiology Visit Report [facility] [place] [address] OFFICE VISIT Date of Service: 11/09/24 MR#: [id number] Acct: [id number] Name: JAMESLUPIS D Rep #: [id number] : 1960 Provider: CORNELL Philippe Age/Sex: 64/M Location: [facility] Status: Signed HPI HPI History of Present [...] room air Intake Visit Reasons: 1 M Embossing Calender Operator Required: No Accompanied by: Self Is patient [...] edema in his ankles that I observed. [facility] Medical History Stage 2 hypertension Cellulitis of [...] house current occupational status: employed current occupation: [employer] with [employer] pets and animals: Yes pets and animals: cat(s), dog(s) and bird(s) Smoking Status: Former smoker how long ago did patient quit smokin years ago alcohol intake: never substance use type (more content not included)... Normal [facility] Hemoglobin A1con 11-09-2024 HbA1c (Bld) [Mass fraction] 6.0 % High <=5.6 [facility] Comment on above: Order Comment: LIVER LIPID GO TO BARBI AND A1C AND PSAD GO TO Todd ANDERSON Result Comment: Norm al < 5.7 % Prediabetic 5.7 - 6.4 % Diabetic >or= 6.5 % Please note range changes. Performed By: #### L 500.8300, L501.9940, L500.3400, L501.9985 ####[facility] [address] [place], [address] Hemoglobin A1c percentageOrd ered By: Karla Gooden on 11-09-2024 HbA1c (Bld) [Mass fraction] 6.0 % High <5.7 [facility] Comment on above: Normal < 5.7 % Predi abetic 5.7 - 6.4 % Diabetic >or= 6.5 % Please note range changes. LDL calc ser/plasOrdered By: Karla Gooden on 11-09-2024 Cholesterol in LDL [Mass/Vol] 102 mg/dL [facility] Comment on above: Dfqcjdpych=905-505 m g/dL & Higher Idiq=782 mg/dL or greaterFriedwald Equation for LDL-C Laboratory - Chemistry and C hemistry - challengeOrdered By: Karla Gooden on 11-09-2024 AST [Catalytic activity/Vol] 21 U/L <38 [facility] Lipid Profileon 11-09-2024 CHOL:HDL 3.32 Normal [facility] Comment on above: Performed By: #### L 500.4100, L501.9940, L500.3400, L501.9985 ####[facility] [address] [place], [address] Cholesterol [Mass/Vol] 177 mg/dL Normal <=200 [facility] Comment on above: Result Comment: Chol esterol level, Desirable <200 mg/dL Borderline high cholesterol 200-239 mg/dL High cholesterol >=240 mg/dL Recommendations of the NCEP Adult Treatment Panel for the following risk-cutoff thresholds for the [place] population. Performed By: #### L 500.4100, L501.9940, L500.3400, L501.9985 ####[facility] [address] [place], [address] Cholesterol in HDL [Mass/Vol] 53 mg/dL Normal [facility] Comment on above: Result Comment: Angelica onal Cholesterol Education Program (NCEP) guidelines: <40 mg/dL: Low HDL-cholesterol (major risk factor for CHD) >= 60 mg/dL: High HDL-cholesterol (negative risk factor for CHD) HDL-cholesterol is affected by a number of factors, e.g. smoking, exercise, hormones, sex and age. Performed By: #### L 500.4100, L501.9940, L500.3400, L501.9985 ####[facility] [address] [place], [address] Cholesterol in LDL [Mass/Vol] 102 mg/dL Normal [facility] Comment on above: Result Comment: Bord gbmzew=657-146 mg/dL Higher Sbhm=784 mg/dL or greater Friedwald Equation for LDL-C Performed By: #### L 500.4100, L501.9940, L500.3400, L501.9985 ####[facility] [address] [place], [address] Cholesterol in VLDL [Mass/Vol] 22 mg/dL Normal 5-40 [facility] Comment on above: Performed By: #### L 500.4100, L501.9940, L500.3400, L501.9985 ####[facility] [address] [place], [address] Triglyceride [Mass/Vol] 110 mg/dL Normal [facility] Comment on above: Result Comment: The drugs N-Acetylcysteine and Metamizole may falsely depress this assay. Normal range: <150 mg/dL Borderline High: 150-199 mg/dL High: 200-499 mg/dL Very High: >500 mg/dL Performed By: #### L 500.4100, L501.9940, L500.3400, L501.9985 ####[facility] [address] [place], [address] Liver Profileon 11-09-2024 Albumin [Mass/Vol] 4.3 g/dL Normal 3.4-4.8 [facility] Comment on above: Performed By: #### L 500.4100, L501.9940, L500.3400, L501.9985 ####[facility] [address] [place], [address] ALK PHOS 89 U/L Normal 40-129 [facility] Comment on above: Performed By: #### L 500.4100, L501.9940, L500.3400, L501.9985 ####[facility] [address] [place], [address] ALT [Catalytic activity/Vol] 29 U/L Normal <=46 [facility] Comment on above: Performed By: #### L 500.4100, L501.9940, L500.3400, L501.9985 ####[facility] [address] [place], [address] AST [Catalytic activity/Vol] 21 U/L Normal <=37 [facility] Comment on above: Performed By: #### L 500.4100, L501.9940, L500.3400, L501.9985 ####[facility] [address] [place], [address] Bilirubin [Mass/Vol] 1.07 mg/dL Normal 0.00-1.30 [facility] Comment on above: Performed By: #### L 500.4100, L501.9940, L500.3400, L501.9985 ####[facility] [address] [place], [address] Bilirubin.direct [Mass/Vol] 0.39 mg/dL High 0.00-0.30 [facility] Comment on above: Performed By: #### L 500.4100, L501.9940, L500.3400, L501.9985 ####[facility] [address] [place], [address] Globulin (S) [Mass/Vol] 2.5 g/dL Normal 2.2-4.2 [facility] Comment on above: Performed By: #### L 500.4100, L501.9940, L500.3400, L501.9985 ####[facility] [address] [place], [address] T PROT 6.8 g/dL Normal 5.9-8.4 [facility] Comment on above: Performed By: #### L 500.4100, L501.9940, L500.3400, L501.9985 ####[facility] [address] [place], [place], [address] PSA,Total- Diagnosticon 10-0 PSA, DIAGNOSTIC 2.14 ng/mL Normal 0.00-4.00 [facility] Comment on above: Result Comment: This test [...] confirm baseline values. Performed By: #### L 500.4100, L501.9940, L500.3400, L501.9985 ####[facility] [address] [place], [place], [address] Screening total cholesterol/ high density lipoprotein (HDL) cholesterol ratioOrdered By: Karla Gooden on 11-09-2024 Cholesterol.total/Chol esterol in HDL [Mass ratio] 3.32 {ratio} [facility] Serum globulin measurementOr dered By: Karla Gooden on 11-09-2024 Globulin (S) [Mass/Vol] 2.5 g/dL 2.2-4.2 [facility] Serum or plasma alanine dasilva otransferase (ALT) measurementOrdered By: Karla Gooden on 11-09-2024 ALT [Catalytic activity/Vol] 29 U/L <47 [facility] Serum or plasma albumin dianne urement (mass/volume)Ordered By: Karla Gooden on 11-09-2024 Albumin [Mass/Vol] 4.3 g/dL 3.4-4.8 [facility] Serum or plasma alkaline jayda sphatase measurementOrdered By: Karla Gooden on 11-09-2024 ALP [Catalytic activity/Vol] 89 U/L 40-129 [facility] Serum or plasma cholesterol in HDL measurement (mass/volume)Ordered By: Karla Gooden on 11-09-2024 Cholesterol in HDL [Mass/Vol] 53 mg/dL >40 [facility] Comment on above: National Cholesterol Education Program (NCEP) guidelines:<40 mg/dL: Low HDL-cholesterol (major risk factor for CHD)>= 60 mg/dL: High HDL-cholesterol (negative risk factor for CHD)HDL-cholesterol is affected by a number of factors, e.g. smoking, exercise, hormones, sex and age. Serum or plasma cholesterol measurement (mass/volume)Ordered By: Karla Gooden on 11-09-2024 Cholesterol [Mass/Vol] 177 mg/dL <201 [facility] Comment on above: Cholesterol level, D esirable <200 mg/dLBorderline high cholesterol 200-239 mg/dLHigh cholesterol >=240 mg/dLRecommendations of the NCEP Adult Treatment Panel for the following risk-cutoff thresholds for the [place] population. Total proteinOrdered By: Adal Gooden on 11-09-2024 Protein [Mass/Vol] 6.8 g/dL 5.9-8.4 [facility] Triglycerides measurementOrd ered By: Karla Gooden on 11-09-2024 Triglyceride [Mass/Vol] 110 mg/dL <199 [facility] Comment on above: The drugs N-Acetylcy steine and Metamizole may falsely depress this assay. Normal range: <150 mg/dLBorderline High: 150-199 mg/dLHigh: 200-499 mg/dLVery High: >500 mg/dL Cardiology Visit Reporton Cardiology Visit Report [facility]. [address] [place] [address] OFFICE VISIT Date of Service: 10/04/24 MR#: [id number] Acct: [id number] Name: LUPIS RAMIREZ Rep #: [id number] : 1960 Provider: CORNELL Philippe Age/Sex: 64/M Location: [facility] Status: Signed HPI HPI History of Present Illness Details: LUPIS RAMIREZ, is a 64 M with a history of hypertension and hyperlipidemia. From a cardiac standpoint, patient is doing well. He does not have any chest discomfort/heaviness/tightn ess. His exercise tolerance is stable for his [...] Monitor Intake Visit Reasons: 3 M FU Embossing Calender Operator Required: No Accompanied by: Self Is patient in pain?: No Allergies rosuvastatin (From Crestor) Adverse Reaction (Intermediate, Verified 10/04/24 13:31) muscle [...] house current occupational status: employed current occupation: [employer] with [employer] pets and animals: Yes pets and animals: [...] inspection: n (more content not included)... Normal [facility] Cardiology Visit Reporton Cardiology Visit Report [facility] [address] [place] [address] OFFICE VISIT Date of Service: 07/04/24 MR#: [id number] Acct: [id number] Name: LUPIS RAMIREZ Rep #: [id number] : 1960 Provider: CORNELL Philippe Age/Sex: 64/M Location: [facility] Status: Signed HPI HPI History of Present Illness Details: LUPIS RAMIREZ, is a 64 M with a history of hypertension and hyperlipidemia. He is still having muscle cramps on the crestor. From a cardiac standpoint, patient is doing well. He does not have any chest discomfort/heaviness/tightn ess. His exercise tolerance is stable for his [...] air Intake Visit Reasons: 1 Y FU Embossing Calender Operator Required: No Is patient in pain?: No [...] the muscle aches and cramping with rosuvastatin PFS Medical History Cellulitis of left lower leg [...] house current occupational status: employed current occupation: [employer] [facility] pets and animals: Yes pets and [...] General: patie (more content not included)... Normal [facility] CBC, Employeeon 01-27-2024 Absolute Lymph 1.63 X10 3/uL Normal 0.83-4.51 [facility] Comment on above: Performed By: #### L 100.0200, L500.2900 #### [facility] [address] [place], [address] Absolute Neut 4.5 X10 3/uL Normal 2.0-7.7 [facility] Comment on above: Performed By: #### L 100.0200, L500.2900 #### [facility] [address] [place], [address] Basophils/100 WBC (Bld) 0.6 % Normal 0-1 [facility] Comment on above: Performed By: #### L 100.0200, L500.2900 #### [facility] [address] [place], [address] Eosinophils/100 WBC (Bld) 2.8 % Normal 0-5 [facility] Comment on above: Performed By: #### L 100.0200, L500.2900 #### [facility] [address] [place], [address] Erythrocyte distribution width (RBC) [Ratio] 12.1 % Normal 11.6-14.6 [facility] Comment on above: Performed By: #### L 100.0200, L500.2900 #### [facility] [address] [place], [address] Hematocrit (Bld) [Volume fraction] 46.9 % Normal 40-54 [facility] Comment on above: Performed By: #### L 100.0200, L500.2900 #### [facility] [address] [place], [address] Hemoglobin (Bld) [Mass/Vol] 15.8 g/dL Normal 13.0-16.5 [facility] Comment on above: Performed By: #### L 100.0200, L500.2900 #### [facility] [address] [place], [address] Lymphocytes/100 WBC (Bld) 22.9 % Normal 19-41 [facility] Comment on above: Performed By: #### L 100.0200, L500.2900 #### [facility] [address] [place], [address] MCH (RBC) [Entitic mass] 30.3 pg Normal 27.0-32.0 [facility] Comment on above: Performed By: #### L 100.0200, L500.2900 #### [facility] [address] [place], [address] MCHC (RBC) [Mass/Vol] 33.7 g/dL Normal 32-36 [facility] Comment on above: Performed By: #### L 100.0200, L500.2900 #### [facility] [address] [place], [address] MCV (RBC) [Entitic vol] 89.8 fL Normal 80-94 [facility] Comment on above: Performed By: #### L 100.0200, L500.2900 #### [facility] [address] [place], [address] Monocytes/100 WBC (Bld) 10.5 % High 0-10 [facility] Comment on above: Performed By: #### L 100.0200, L500.2900 #### [facility] [address] [place], [address] Neutrophils/100 WBC (Bld) 63.1 % Normal 47-70 [facility] Comment on above: Performed By: #### L 100.0200, L500.2900 #### [facility] [address] [place], [address] NRBC # 0.00 10 3/uL Normal 0-5 [facility] Comment on above: Performed By: #### L 100.0200, L500.2900 #### [facility] [address] [place], [address] Nucleated RBC (Bld) [#/Vol] 0 10*3/uL Normal 0-5 [facility] Comment on above: Performed By: #### L 100.0200, L500.2900 #### [facility] [address] [place], [address] Platelet mean volume (Bld) [Entitic vol] 10.4 fL Normal 6.2-12.0 [facility] Comment on above: Performed By: #### L 100.0200, L500.2900 #### [facility] [address] [place], [address] Platelets (Bld) [#/Vol] 236 10*3/uL Normal 150-450 [facility] Comment on above: Performed By: #### L 100.0200, L500.2900 #### [facility] [address] [place], [address] RBC (Bld) [#/Vol] 5.22 10*6/uL Normal 4.6-6.2 [facility] Comment on above: Performed By: #### L 100.0200, L500.2900 #### [facility] [address] [place], [address] RDW SD 39.8 fl Normal 35.1-43.9 [facility] Comment on above: Performed By: #### L 100.0200, L500.2900 #### [facility] [address] [place], [address] WBC (Bld) [#/Vol] 7.1 10*3/uL Normal 4.4-11.0 [facility] Comment on above: Performed By: #### L 100.0200, L500.2900 #### [facility] [address] [place], [address] Employee Profileon 4 Albumin [Mass/Vol] 4.1 g/dL Normal 3.2-5.0 [facility] Comment on above: Performed By: #### L 100.0200, L500.2900 #### [facility] [address] [place], [address] Albumin/Globulin [Mass ratio] 1.2 {ratio} Normal 0.9-2.4 [facility] Comment on above: Performed By: #### L 100.0200, L500.2900 #### [facility] [address] [place], [address] ALK P 96 U/L Normal 45-117 [facility] Comment on above: Performed By: #### L 100.0200, L500.2900 #### [facility] [address] [place], [address] ALT [Catalytic activity/Vol] 72 U/L High 16-61 [facility] Comment on above: Performed By: #### L 100.0200, L500.2900 #### [facility] [address] [place], [address] AST [Catalytic activity/Vol] 34 U/L Normal 15-37 [facility] Comment on above: Performed By: #### L 100.0200, L500.2900 #### [facility] [address] [place], [address] Bilirubin [Mass/Vol] 1.10 mg/dL High 0.20-1.00 [facility] Comment on above: Result Comment: For patients on eltrombopag therapy, use of Dimension [place] TBIL is not recommended. Performed By: #### L 100.0200, L500.2900 #### [facility] [address] [place], [address] Bilirubin.direct [Mass/Vol] 0.20 mg/dL Normal 0.00-0.30 [facility] Comment on above: Performed By: #### L 100.0200, L500.2900 #### [facility] [address] [place], [address] BUN/CRE 14.7 RATIO Normal 10-20 [facility] Comment on above: Performed By: #### L 100.0200, L500.2900 #### [facility] [address] [place], [address] CA,Total 9.5 mg/dL Normal 8.5-10.1 [facility] Comment on above: Performed By: #### L 100.0200, L500.2900 #### [facility] [address] [place], [address] Chloride [Moles/Vol] 107 mmol/L Normal 98-107 [facility] Comment on above: Performed By: #### L 100.0200, L500.2900 #### [facility] [address] [place], [address] CHOL:HDL 2.60 Normal [facility] Comment on above: Performed By: #### L 100.0200, L500.2900 #### [facility] [address] [place], [address] Cholesterol [Mass/Vol] 149 mg/dL Normal 200 [facility] Comment on above: Result Comment: <200 mg/dL Desirable 200-240 mg/dL Borderline >240 mg/dL High Risk Performed By: #### L 100.0200, L500.2900 #### [facility] [address] [place], [address] Cholesterol in HDL [Mass/Vol] 57 mg/dL Normal [facility] Comment on above: Result Comment: The drugs N-Acetylcysteine and Metamizole may falsely depress this assay. Reference Range HDL <40 mg/dL Low HDL Cholesterol HDL >or= 60 mg/dL High HDL Cholesterol Performed By: #### L 100.0200, L500.2900 #### [facility] [address] [place], [address] Cholesterol in LDL [Mass/Vol] 76 mg/dL Normal 0-130 [facility] Comment on above: Performed By: #### L 100.0200, L500.2900 #### [facility] [address] [place], [address] Cholesterol in VLDL [Mass/Vol] 16 mg/dL Normal 5-40 [facility] Comment on above: Performed By: #### L 100.0200, L500.2900 #### [facility] [address] [place], [address] CO2 [Moles/Vol] 23.0 mmol/L Normal 21.0-32.0 [facility] Comment on above: Performed By: #### L 100.0200, L500.2900 #### [facility] [address] [place], [address] Creatinine [Mass/Vol] 0.89 mg/dL Normal 0.70-1.30 [facility] Comment on above: Result Comment: The validity of the calculated GFR GFRAA in patients over 70 years has not been determined. Clinical correlation is essential. Performed By: #### L 100.0200, L500.2900 #### [facility] [address] [place], [address] EST GFR - AA 111 mL/min Normal >60 [facility] Comment on above: Result Comment: Afri can Tunisian GFR Calc Performed By: #### L 100.0200, L500.2900 #### [facility] [address] [place], [address] GAP 7 Normal 5-15 [facility] Comment on above: Performed By: #### L 100.0200, L500.2900 #### [facility] [address] [place], [address] GFR/1.73 sq M.predicted among non-blacks MDRD (S/P/Bld) [Vol rate/Area] 92 mL/min/{1.73_m2} Normal >60 [facility] Comment on above: Result Comment: Non- GFR Calc Performed By: #### L 100.0200, L500.2900 #### [facility] [address] [place], [address] Globulin (S) [Mass/Vol] 3.5 g/dL Normal 2.2-4.2 [facility] Comment on above: Performed By: #### L 100.0200, L500.2900 #### [facility] [address] [place], [address] Glucose [Mass/Vol] 130 mg/dL High 74-106 [facility] Comment on above: Result Comment: Fast ing Glucose result greater than or equal to 126 mg/dL suggests DIABETES MELLITUS per A.D.A. criteria. Performed By: #### L 100.0200, L500.2900 #### [facility] [address] [place], [address] LDH 201 U/L Normal 87-241 [facility] Comment on above: Performed By: #### L 100.0200, L500.2900 #### [facility] [address] [place], [address] Phosphate [Mass/Vol] 3.0 mg/dL Normal 2.5-4.9 [facility] Comment on above: Performed By: #### L 100.0200, L500.2900 #### [facility] [address] [place], [address] Potassium [Moles/Vol] 3.9 mmol/L Normal 3.5-5.1 [facility] Comment on above: Performed By: #### L 100.0200, L500.2900 #### [facility] [address] [place], [address] Sodium [Moles/Vol] 138 mmol/L Normal 136-145 [facility] Comment on above: Performed By: #### L 100.0200, L500.2900 #### [facility] [address] [place], [address] T PROT 7.6 g/dL Normal 6.4-8.2 [facility] Comment on above: Performed By: #### L 100.0200, L500.2900 #### [facility] [address] [place], [address] Triglyceride [Mass/Vol] 79 mg/dL Normal [facility] Comment on above: Result Comment: The drugs N-Acetylcysteine and Metamizole may falsely depress this assay. Serum Triglycerides Reference Interval Normal <150 mg/dL Borderline high 150 - 199 mg/dL High 200 - 499 mg/dL Very High > or = 500 mg/dL Performed By: #### L 100.0200, L500.2900 #### [facility] [address] [place], [address] Urea nitrogen [Mass/Vol] 13 mg/dL Normal 7-18 [facility] Comment on above: Performed By: #### L 100.0200, L500.2900 #### [facility] [address] [place], [address] URIC 4.4 mg/dL Normal 3.5-7.2 [facility] Comment on above: Result Comment: The drugs N-Acetylcysteine and Metamizole may falsely depress this assay. Performed By: #### L 100.0200, L500.2900 #### [facility] [address] [place], [address] Absolute lymphocyte countOrd ered By: HEALTH ASSESSMENT on 12-10-2022 Lymphocytes Auto (Unsp spec) [#/Vol] 1.90 10*3/uL 0.83-4.51 [facility] Absolute reticulocyte countO rdered By: HEALTH ASSESSMENT on 12-10-2022 Reticulocytes (Bld) [#/Vol] 0.00 10*3/uL 0-5 [facility] Basophil percentageOrdered B y: HEALTH ASSESSMENT on 12-10-2022 Basophil percentage 3.0 mg/dL 2.5-4.9 [facility] Bilirubin [Mass/Vol] 0.80 mg/dL 0.20-1.00 [facility] Comment on above: For patients on eltr ombopag therapy, use of [place] TBIL is not recommended. Chloride [Moles/Vol] 106 mmol/L 98-107 [facility] Cholesterol [Mass/Vol] 196 mg/dL <200 [facility] Comment on above: <200 mg/dL Desirable 200-240 mg/dL Borderline >240 mg/dL High Risk Glucose [Mass/Vol] 117 mg/dL 74-106 [facility] Comment on above: Fasting Glucose resu lt from 100 to 125 mg/dL suggests IMPAIRED HOMEOSTASIS per A.D.A. criteria. LDH [Catalytic activity/Vol] 171 U/L 87-241 [facility] Neutrophils (Bld) [#/Vol] 4.4 10*3/uL 2.0-7.7 [facility] Potassium [Moles/Vol] 3.9 mmol/L 3.5-5.1 [facility] Protein [Mass/Vol] 7.3 g/dL 6.4-8.2 [facility] Sodium [Moles/Vol] 138 mmol/L 136-145 [facility] Triglyceride [Mass/Vol] 96 mg/dL <199 [facility] Comment on above: The drugs N-Acetylcy steine and Metamizole may falsely depress this assay.Serum Triglycerides Reference Interval Normal <150 mg/dL Borderline high 150 - 199 mg/dL High 200 - 499 mg/dL Very High > or = 500 mg/dL WBC (Bld) [#/Vol] 7.4 10*3/uL 4.4-11.0 [facility] Blood erythrocytes count (nu mber/volume)Ordered By: HEALTH ASSESSMENT on 12-10-2022 RBC (Bld) [#/Vol] 5.19 10*6/uL 4.6-6.2 [facility] Blood hemoglobin measurement (mass/volume)Ordered By: HEALTH ASSESSMENT on 12-10-2022 Hemoglobin (Bld) [Mass/Vol] 15.8 g/dL 13.0-16.5 [facility] Blood platelet mean volumeOr dered By: HEALTH ASSESSMENT on 12-10-2022 Platelet mean volume (Bld) [Entitic vol] 9.6 fL 6.2-12.0 [facility] Determination of erythrocyte mean corpuscular volume (MCV)Ordered By: HEALTH ASSESSMENT on 12-10-2022 MCV (RBC) [Entitic vol] 91.5 fL 80-94 [facility] Direct bilirubinOrdered By: HEALTH ASSESSMENT on 12-10-2022 Bilirubin.direct [Mass/Vol] 0.19 mg/dL 0.00-0.30 [facility] Hematocrit Auto (Bld) [Volum e fraction]Ordered By: HEALTH ASSESSMENT on 12-10-2022 Hematocrit (Bld) [Volume fraction] 47.5 % 40-54 [facility] - Chemistry and C hemistry - challengeOrdered By: HEALTH ASSESSMENT on 12-10-2022 ALP [Catalytic activity/Vol] 101 U/L 45-117 [facility] ALT [Catalytic activity/Vol] 57 U/L 16-61 [facility] Cholesterol.total/Chol esterol in HDL [Mass ratio] 4.10 {ratio} [facility] CO2 [Moles/Vol] 28.0 mmol/L 21.0-32.0 [facility] Globulin (S) [Mass/Vol] 3.5 g/dL 2.2-4.2 [facility] Urea nitrogen/Creatinine [Mass ratio] 14.7 mg/mg 10-20 [facility] - Hematology and Cell countsOrdered By: HEALTH ASSESSMENT on 12-10-2022 Erythrocyte distribution width (RBC) [Entitic vol] 41.4 fL 35.1-43.9 [facility] Erythrocyte distribution width (RBC) [Ratio] 12.4 % 11.6-14.6 [facility] MCH (RBC) [Entitic mass] 30.4 pg 27.0-32.0 [facility] Nucleated RBC/100 WBC (Bld) [Ratio] 0 % 0-5 [facility] MCHC Auto (RBC) [Mass/Vol]Or dered By: HEALTH ASSESSMENT on 12-10-2022 MCHC (RBC) [Mass/Vol] 33.3 g/dL 32-36 [facility] No Panel InformationOrdered By: HEALTH ASSESSMENT on 12-10-2022 Estimated GFR (MDRD) Amer 95 mL/min >60 [facility] Comment on above: GFR Calc Estimated GFR (MDRD) Non-Af Amer 79 mL/min >60 [facility] Comment on above: Non- GFR Calc Platelets bldOrdered By: ANA LT ASSESSMENT on 12-10-2022 Platelets (Bld) [#/Vol] 263 10*3/uL 150-450 [facility] Segmented neutrophils/100 WB C Auto (Bld)Ordered By: HEALTH ASSESSMENT on 12-10-2022 Segmented neutrophils/100 WBC (Bld) 59.4 % 47-70 [facility] Serum or plasma albumin dianne urement (mass/volume)Ordered By: HEALTH ASSESSMENT on 12-10-2022 Albumin [Mass/Vol] 3.8 g/dL 3.2-5.0 [facility] Serum or plasma albumin/glob ulin mass ratioOrdered By: HEALTH ASSESSMENT on 12-10-2022 Albumin/Globulin [Mass ratio] 1.1 {ratio} 0.9-2.4 [facility] Serum or plasma calcium dianne urement (mass/volume)Ordered By: HEALTH ASSESSMENT on 12-10-2022 Calcium [Mass/Vol] 9.0 mg/dL 8.5-10.1 [facility] Serum or plasma cholesterol in HDL measurement (mass/volume)Ordered By: HEALTH ASSESSMENT on 12-10-2022 Cholesterol in HDL [Mass/Vol] 48 mg/dL >40 [facility] Comment on above: The drugs N-Acetylcy steine and Metamizole may falsely depress this assay. Reference Range HDL <40 mg/dL Low HDL Cholesterol HDL >or= 60 mg/dL High HDL Cholesterol Serum or plasma cholesterol in VLDL measurement (mass/volume)Ordered By: HEALTH ASSESSMENT on 12-10-2022 Cholesterol in VLDL [Mass/Vol] 19 mg/dL 5-40 [facility] Serum or plasma creatinine m easurement (mass/volume)Ordered By: HEALTH ASSESSMENT on 12-10-2022 Creatinine [Mass/Vol] 1.02 mg/dL 0.70-1.30 [facility] Comment on above: The validity of the calculated GFR & GFRAA in patients over 70 years has not been determined. Clinical correlation is essential. Serum or plasma low density lipoprotein (LDL) cholesterol measurement (mass/volume)Ordered By: HEALTH ASSESSMENT on 12-10-2022 Cholesterol in LDL [Mass/Vol] 129 mg/dL 0-130 [facility] Serum or plasma urea nitroge n measurement (mass/volume)Ordered By: HEALTH ASSESSMENT on 12-10-2022 Urea nitrogen [Mass/Vol] 15 mg/dL 7-18 [facility] Serum or plasma uric acid me asurement (mass/volume)Ordered By: HEALTH ASSESSMENT on 12-10-2022 Urate [Mass/Vol] 4.9 mg/dL 3.5-7.2 [facility] Comment on above: The drugs N-Acetylcy steine and Metamizole may falsely depress this assay. Thin prep Papanicolaou smear with manual screeningOrdered By: HEALTH ASSESSMENT on 12-10-2022 Thin prep Papanicolaou smear with manual screening 23 U/L 15-37 [facility] Thin prep Papanicolaou smear with manual screening 4 5-15 [facility] Basophil percentageOrdered B y: Jina Woods on 01-13-2022 Bilirubin [Mass/Vol] 0.90 mg/dL 0.20-1.00 [facility] Comment on above: For patients on eltr ombopag therapy, use of [place] TBIL is not recommended. Cholesterol [Mass/Vol] 200 mg/dL <200 [facility] Comment on above: <200 mg/dL Desirable 200-240 mg/dL Borderline >240 mg/dL High Risk Protein [Mass/Vol] 6.8 g/dL 6.4-8.2 [facility] Triglyceride [Mass/Vol] 122 mg/dL <199 [facility] Comment on above: The drugs N-Acetylcy steine and Metamizole may falsely depress this assay.Serum Triglycerides Reference Interval Normal <150 mg/dL Borderline high 150 - 199 mg/dL High 200 - 499 mg/dL Very High > or = 500 mg/dL Direct bilirubinOrdered By: Jina Woods on 01-13-2022 Bilirubin.direct [Mass/Vol] 0.18 mg/dL 0.00-0.30 [facility] - Chemistry and C hemistry - challengeOrdered By: Jian Woods on 01-13-2022 ALP [Catalytic activity/Vol] 90 U/L 45-117 [facility] ALT [Catalytic activity/Vol] 47 U/L 16-61 [facility] Globulin (S) [Mass/Vol] 2.9 g/dL 2.2-4.2 [facility] Serum or plasma albumin dianne urement (mass/volume)Ordered By: Jina Woods on 01-13-2022 Albumin [Mass/Vol] 3.9 g/dL 3.2-5.0 [facility] Serum or plasma cholesterol in HDL measurement (mass/volume)Ordered By: Jina Woods on 01-13-2022 Cholesterol in HDL [Mass/Vol] 55 mg/dL >40 [facility] Comment on above: The drugs N-Acetylcy steine and Metamizole may falsely depress this assay. Reference Range HDL <40 mg/dL Low HDL Cholesterol HDL >or= 60 mg/dL High HDL Cholesterol Serum or plasma cholesterol in VLDL measurement (mass/volume)Ordered By: Jina Woods on 01-13-2022 Cholesterol in VLDL [Mass/Vol] 24 mg/dL 5-40 [facility] Serum or plasma low density lipoprotein (LDL) cholesterol measurement (mass/volume)Ordered By: Jina Woods on 01-13-2022 Cholesterol in LDL [Mass/Vol] 121 mg/dL 0-130 [facility] Thin prep Papanicolaou smear with manual screeningOrdered By: Jina Woods on 01-13-2022 Thin prep Papanicolaou smear with manual screening 20 U/L 15-37 [facility] Absolute lymphocyte counton 07-11-2021 Lymphocytes Auto (Unsp spec) [#/Vol] 1.91 10*3/uL 0.83-4.51 [facility] Work Phone: Basophil percentageon 2021 Basophils/100 WBC (Bld) 0.5 % 0-1 [facility] Work Phone: Chloride [Moles/Vol] 104 mmol/L 98-107 [facility] Work Phone: Eosinophils/100 WBC (Bld) 2.0 % 0-5 [facility] Work Phone: Glucose [Mass/Vol] 94 mg/dL 74-106 [facility] Work Phone: Neutrophils (Bld) [#/Vol] 4.6 10*3/uL 2.0-7.7 [facility] Work Phone: Neutrophils/100 WBC (Bld) 60.7 % 47-70 [facility] Work Phone: Potassium [Moles/Vol] 3.6 mmol/L 3.5-5.1 [facility] Work Phone: Sodium [Moles/Vol] 138 mmol/L 136-145 [facility] Work Phone: WBC (Bld) [#/Vol] 7.6 10*3/uL 4.4-11.0 [facility] Work Phone: Blood erythrocytes count (nu mber/volume)on 07-11-2021 RBC (Bld) [#/Vol] 4.91 10*6/uL 4.6-6.2 [facility] Work Phone: Blood hemoglobin measurement (mass/volume)on 07-11-2021 Hemoglobin (Bld) [Mass/Vol] 15.4 g/dL 13.0-16.5 [facility] Work Phone: Blood lymphocytes/100 leukoc yteson 07-11-2021 Lymphocytes/100 WBC (Bld) 25.1 % 19-41 [facility] Work Phone: Blood monocytes/100 leukocyt eson 07-11-2021 Monocytes/100 WBC (Bld) 11.3 % 0-10 [facility] Work Phone: Blood platelet mean volumeon 07-11-2021 Platelet mean volume (Bld) [Entitic vol] 9.7 fL 6.2-12.0 [facility] Work Phone: [phone] Determination of erythrocyte mean corpuscular volume (MCV)on 07-11-2021 MCV (RBC) [Entitic vol] 89.4 fL 80-94 [facility] Work Phone: [phone] Hematocrit Auto (Bld) [Volum e fraction]on 07-11-2021 Hematocrit (Bld) [Volume fraction] 43.9 % 40-54 [facility] Work Phone: Laboratory - Chemistry and C hemistry - challengeon 07-11-2021 CO2 [Moles/Vol] 27.0 mmol/L 21.0-32.0 [facility] Work Phone: [phone] Urea nitrogen/Creatinine [Mass ratio] 17.3 mg/mg 10-20 [facility] Work Phone: [phone] Laboratory - Hematology and Cell countson 07-11-2021 Erythrocyte distribution width (RBC) [Entitic vol] 39.6 fL 35.1-43.9 [facility] Work Phone: [phone] Erythrocyte distribution width (RBC) [Ratio] 12.1 % 11.6-14.6 [facility] Work Phone: [phone] Immature granulocytes/100 WBC (Bld) 0.400 % 0.0-0.9 [facility] Work Phone: Comment on above: IG% - Immature Granu locytes (promyelocytes, myelocytes and metamyelocytes) > 1% indicates that a LEFT SHIFT is Present. MCH (RBC) [Entitic mass] 31.4 pg 27.0-32.0 [facility] Work Phone: Nucleated RBC/100 WBC (Bld) [Ratio] 0 % 0-5 [facility] Work Phone: MCHC Auto (RBC) [Mass/Vol]on 07-11-2021 MCHC (RBC) [Mass/Vol] 35.1 g/dL 32-36 [facility] Work Phone: No Panel Informationon 07-11 Estimated Creatinine Clearance Calc 76.58 ml/min [facility] Work Phone: Estimated GFR (MDRD) Amer 100 mL/min >60 [facility] Work Phone: Comment on above: GFR Calc Estimated GFR (MDRD) Non-Af Amer 82 mL/min >60 [facility] Work Phone: Comment on above: Non- GFR Calc Platelets bldon 07-11-2021 Platelets (Bld) [#/Vol] 229 10*3/uL 150-450 [facility] Work Phone: Serum or plasma calcium dianne urement (mass/volume)on 07-11-2021 Calcium [Mass/Vol] 9.3 mg/dL 8.5-10.1 [facility] Work Phone: Serum or plasma creatinine m easurement (mass/volume)on 07-11-2021 Creatinine [Mass/Vol] 0.98 mg/dL 0.70-1.30 [facility] Work Phone: Comment on above: The validity of the calculated GFR & GFRAA in patients over 70 years has not been determined. Clinical correlation is essential. Serum or plasma urea nitroge n measurement (mass/volume)on 07-11-2021 Urea nitrogen [Mass/Vol] 17 mg/dL 7-18 [facility] Work Phone: Thin prep Papanicolaou smear with manual screeningon 07-11-2021 Thin prep Papanicolaou smear with manual screening 7 5-15 [facility] Work Phone: Vital Signs Date Time Vital Sign Value Performing Clinician Faci lity 11-24-2024 06:18-0400 Body temperature 97.8 [degF] Dr. Dayami Anderson MD Work Phone: [facility] 11-24-2024 06:18-0400 Diastolic blood pressure 84 mm[Hg] Dr. Dayami Anderson MD Work Phone: [facility] 11-24-2024 06:18-0400 Heart rate 75 /min Dr. Dayami Anderson MD Work Phone: [facility] 11-24-2024 06:18-0400 Respiratory rate 18 /min Dr. Dayami Anderson MD Work Phone: [facility] 11-24-2024 06:18-0400 SaO2% (BldA) [Mass fraction] 96 % Dr. Dayami Anderson MD Work Phone: [facility] 11-24-2024 06:18-0400 Systolic blood pressure 141 mm[Hg] Dr. Dayami Anderson MD Work Phone: [facility] 11-24-2024 04:41-0400 Body height 170.[address] Dayami Anderson MD Work Phone: [facility] 11-24-2024 04:41-0400 Body mass index (BMI) [Ratio] 33.7 kg/m2 Dr. Dayami Anderson MD Work Phone: [facility] 11-24-2024 04:41-0400 Body weight 97.[address] Dayami Anderson MD Work Phone: [facility] 11-09-2024 14:25-0400 Diastolic blood pressure 92 mm[Hg] Dr. Dayami Anderson MD Work Phone: [facility] 11-09-2024 14:25-0400 Systolic blood pressure 148 mm[Hg] Dr. Dayami Anderson MD Work Phone: [facility] 11-09-2024 07:56-0400 Body mass index (BMI) [Ratio] 32.8 kg/m2 Dr. Dayami Anderson MD Work Phone: [facility] 11-09-2024 07:56-0400 Body weight 95.[address] Dayami Anderson MD Work Phone: [facility] 11-09-2024 07:56-0400 Diastolic blood pressure 93 mm[Hg] Dr. Dayami Anderson MD Work Phone: [facility] 11-09-2024 07:56-0400 Heart rate 75 /min Dr. Dayami Anderson MD Work Phone: [facility] 11-09-2024 07:56-0400 Respiratory rate 18 /min Dr. Dayami Anderson MD Work Phone: [facility] 11-09-2024 07:56-0400 SaO2% (BldA) [Mass fraction] 95 % Dr. Dayami Anderson MD Work Phone: [facility] 11-09-2024 07:56-0400 Systolic blood pressure 167 mm[Hg] Dr. Dayami Anderson MD Work Phone: [facility] 10-04-2024 13:31-0400 Body height 170.[address] Dayami Anderson MD Work Phone: [facility] 10-04-2024 13:31-0400 Body mass index (BMI) [Ratio] 32.7 kg/m2 Dr. Dayami Anderson MD Work Phone: [facility] 10-04-2024 13:31-0400 Body weight 94.[address] Dayami Anderson MD Work Phone: [facility] 10-04-2024 13:31-0400 Diastolic blood pressure 81 mm[Hg] Dr. Dayami Anderson MD Work Phone: [facility] 10-04-2024 13:31-0400 Heart rate 58 /min Dr. Dayami Anderson MD Work Phone: [facility] 10-04-2024 13:31-0400 Respiratory rate 16 /min Dr. Dayami Anderson MD Work Phone: [phone])781-879760 [place] [address] 10-04-2024 13:31-0400 Systolic blood pressure 137 mm[Hg] Dr. Dayami Anderson MD Work Phone: [facility] 07-04-2024 14:24-0400 Diastolic blood pressure 90 mm[Hg] Dr. Dayami Anderson MD Work Phone: [phone])273-110960 [place] [address] 07-04-2024 14:24-0400 Systolic blood pressure 160 mm[Hg] Dr. Dayami Anderson MD Work Phone: 3([phone])450-373260 [place] [address] 07-04-2024 13:56-0400 Body height 170.[address] Dayami Anderson MD Work Phone: [facility] 07-04-2024 13:56-0400 Body mass index (BMI) [Ratio] 33.2 kg/m2 Dr. Dayami Anderson MD Work Phone: [facility] 07-04-2024 13:56-0400 Body weight 96.[address] Dayami Anderson MD Work Phone: 9([phone])701-781060 [place] [address] 07-04-2024 13:56-0400 Heart rate 56 /min Dr. Dayami Anderson MD Work Phone: [facility] 07-04-2024 13:56-0400 Respiratory rate 16 /min Dr. Dayami Anderson MD Work Phone: [phone])165-770660 [place] [address] 01-25-2023 15:55-0500 Body height 170.18 cm [facility] 01-25-2023 15:55-0500 Body mass index (BMI) [Ratio] 31.3 kg/m2 [facility] 01-25-2023 15:55-0500 Body temperature 98.9 [degF] [facility] 01-25-2023 15:55-0500 Body weight 90.71 kg [facility] 01-25-2023 15:55-0500 Diastolic blood pressure 74 mm[Hg] [facility] 01-25-2023 15:55-0500 Heart rate 65 /min [facility] 01-25-2023 15:55-0500 Respiratory rate 14 /min [facility] 01-25-2023 15:55-0500 SaO2% (BldA) [Mass fraction] 98 % [facility] 01-25-2023 15:55-0500 Systolic blood pressure 139 mm[Hg] [facility] 02-20-2022 14:05-0500 Body height 172.[address] Dayami Anderson Work Phone: [facility] 12-31-2021 13:03-0500 Body height 172.[address] Dayami Anderson Work Phone: [facility] Work Phone: 12-31-2021 13:03-0500 Body mass index (BMI) [Ratio] 32.3 kg/m2 Dr. Dayami Anderson Work Phone: [facility] 12-31-2021 13:03-0500 Body weight 96.[address] Dayami Anderson Work Phone: [facility] 12-31-2021 13:03-0500 Diastolic blood pressure 78 mm[Hg] Dr. Dayami Anderson Work Phone: [facility] 12-31-2021 13:03-0500 Heart rate 66 /min Dr. Dayami Anderson Work Phone: [facility] 12-31-2021 13:03-0500 Respiratory rate 16 /min Dr. Dayami Anderson Work Phone: [facility] 12-31-2021 13:03-0500 SaO2% (BldA) [Mass fraction] 97 % Dr. Dayami Anderson Work Phone: [facility] 12-31-2021 13:03-0500 Systolic blood pressure 141 mm[Hg] Dr. Dayami Anderson Work Phone: [facility] 07-11-2021 19:50-0400 Diastolic blood pressure 87 mm[Hg] [facility] Work Phone: 07-11-2021 19:50-0400 Systolic blood pressure 134 mm[Hg] [facility] Work Phone: 07-11-2021 18:38-0400 Heart rate 61 /min [facility] Work Phone: 07-11-2021 18:38-0400 Respiratory rate 18 /min [facility] Work Phone: 07-11-2021 18:38-0400 SaO2% (BldA) [Mass fraction] 94 % [facility] Work Phone: 07-11-2021 17:15-0400 Body height 172.72 cm [facility] Work Phone: 07-11-2021 17:15-0400 Body mass index (BMI) [Ratio] 29.6 kg/m2 [facility] Work Phone: 07-11-2021 17:15-0400 Body temperature 97.7 [degF] [facility] Work Phone: 07-11-2021 17:15-0400 Body weight 88.45 kg [facility] Work Phone: Encounters Encounter Date Encounter Type Care Provider Facility Start: 12-01-2024 [facility] Pato Harkins Facility:[facility] Start: 12-01-2024 End: 12-01-2024 ambulatory [facility] Facility:[facility] Start: 11-24-2024 End: 11-24-2024 Emergency department patient visit Rowdy Hansen -Emergency Department Work Phone: Start: 11-16-2024 End: 11-16-2024 Patient encounter procedure Karla SARABIA -Laboratory Work Phone: Start: 11-15-2024 Non-patient / Non-visit Dr. Calvin Yanes MD -[facility] Work Phone: Start: 11-15-2024 Registered Referred Karla SARABIA -[facility] Work Phone: Start: 11-15-2024 End: 11-16-2024 ambulatory [facility] Facility:[facility] Start: 11-09-2024 End: 11-09-2024 Patient encounter procedure Karla SARABIA -[facility] Work Phone: Start: 11-09-2024 End: 11-09-[address] Dayami Anderson MD Work Phone: -[facility] Start: 11-09-2024 End: 11-09-[address] Dayami Anderson MD Work Phone: -[facility] [place] Start: 11-09-2024 End: 11-09-[address] Dayami Anderson MD -[facility] [place] Work Phone: Start: 11-09-2024 End: 11-09-2024 ambulatory [facility] Facility:[facility] Start: 10-04-2024 End: 10-04-2024 Patient encounter procedure Karla SARABIA -[facility] Work Phone: Start: 10-04-2024 End: 10-04-[address] Dayami Anderson MD Work Phone: -[facility] Start: 07-04-2024 End: 07-04-2024 Patient encounter procedure Karla Gooden PA -[facility] Work Phone: Start: 07-04-2024 End: 07-04-[address] Dayami Anderson MD Work Phone: [facility] Work Phone: Start: 01-27-2024 ambulatory Health Risk Assessment Facility:[facility] Start: 01-25-2023 End: 01-25-2023 Emergency department patient visit [facility]-Emergency Department Work Phone: Start: 12-10-2022 Registered Referred [facility] Start: 04-07-2022 End: 04-07-[address] Dayami Anderson Work Phone: [facility] Work Phone: Start: 04-07-2022 End: 04-07-[address] Dayami Anderson Work Phone: [facility]-Radiology, [facility] Start: 04-06-2022 End: 04-06-[address] Dayami Anderson Work Phone: [facility] Work Phone: Start: 04-06-2022 End: 04-06-[address] Dayami Anderosn Work Phone: [facility]-Physical Therapy Start: 04-06-[address] Alba Anderson Work Phone: [facility]-Physical Therapy Start: 02-23-2022 End: 02-23-[address] Dayami Anderson Work Phone: [facility] Start: 01-13-2022 End: 01-13-[address] Dayami Anderson Work Phone: [facility] Work Phone: Start: 01-13-2022 End: 01-13-[address] Dayami Anderson Work Phone: [facility] Start: 12-31-2021 End: 12-31-[address] Dayami Anderson Work Phone: [facility] Start: 07-11-2021 End: 07-11-2021 Emergency department patient visit [facility]-Emergency Department Procedures Date Procedure Procedure Detail Performing Clinician Start: 11-24-2024 CT of head without contrast Dr. Dayami Anderson MD Work Phone: Start: 11-24-[address] Dayami Anderson MD Work Phone: Start: 11-15-2024 CT angiography of co ronary arteries Dr. Dayami Anderson MD Work Phone: Start: 11-09-2024 Prostate specific an tigen measurement [...] Treatment Date Care Activity Detail Author Start: 12-01-2024 Non-patient / Non-visit Non-patient / Non-visit -[facility] Start: 12-01-2024 Patient encounter procedure Registered Clinical -Cardiovascular Services Work Phone: Start: 11-24-2024 End: 11-24-2024 [facility] Start: 11-09-2024 End: 11-09-2024 Evaluation of diagnostic study results [facility] Start: 10-04-2024 CT angiography of coronary arteries [facility] Start: 01-25-2023 [facility] Aldosterone [Mass/vo lume] in Serum or Plasma [facility] Catecholamines [Moles/volume] in Plasma [facility] Hepatic function panel [facility] Lipid 1996 panel - S nasima or Plasma [facility] Patient Education [facility] Work Phone: Patient referral [facility] Work Phone: US Renal artery [facility] Immunizations Immunization Date Immunization Notes Care Provider Fa cility 12-24-2023 influenza, seasonal, injectable, preservative free Dr. Dayami Anderson MD Work Phone: [facility] 01-05-2023 influenza, injectabl e, quadrivalent, preservative free [facility] 12-25-2021 influenza, injectabl e, quadrivalent, preservative free [facility] 12-25-2021 influenza, seasonal, injectable Dr. Dayami Anderson Work Phone: [facility] 12-19-2020 influenza, injectabl e, quadrivalent, preservative free [facility] 12-19-2020 influenza, seasonal, injectable [facility] 12-11-2020 Covmi (Moderna) [facility] 03-19-2020 [facility] (Moderna) [facility] 02-20-2020 Covid (Moderna) [facility] 12-14-2019 influenza, injectabl e, quadrivalent, preservative free [facility] 12-14-2019 influenza, seasonal, injectable [facility] 01-02-2019 influenza, injectabl e, quadrivalent, preservative free [facility] 01-02-2019 influenza, seasonal, injectable [facility] 12-08-2017 influenza, injectabl e, quadrivalent, preservative free [facility] 12-08-2017 influenza, seasonal, injectable [facility] 11-30-2016 influenza, injectabl e, quadrivalent, preservative free [facility] 11-30-2016 influenza, seasonal, injectable [facility] Payers Date Payer Category Payer Unknown [id number] 2024 Self-pay [id number] Unknown [id number] Unknown [id number] 2.16.8 [id number] Unknown [id number] 2.16.8 [id number] Unknown [id number] 2.16.8 [id number] Unknown [id number] 2.16.8 [id number] Unknown [id number] 2.16.8 [id number] Unknown [id number] 2.16.8 [id number] Unknown [id number] 2.16.8 [id number] Unknown [id number] 2.16.8 [id number] Unknown [id number] 2.16.8 [id number] Unknown [id number] 2.16.8 [id number] Social History Date Type Detail Facility Start: 07-11-2021 End: 01-25-2023 Tobacco smoking status NHIS Unknown if ever smoked [facility] Start: 11-22-2019 Non-smoker [facility] Start: 1960 Sex Assigned At Male [facility] Start: 07-04-2024 End: 11-24-2024 Tobacco smoking status NHIS Ex-smoker (finding) [facility] Sex Male [facility] Mental Status Date Assessment Result Facility 11-24-2024 Cognitive function Voice/Name [facility] Work Phone: 01-25-2023 Cognitive function Level Of Cons ciousness Awake;Alert;Appropriate;Follow s Commands [facility] Work Phone: 07-11-2021 Cognitive function Level Of Cons ciousness Awake;Alert;Appropriate;Follow s Commands [facility] Work Phone: Clinical Notes 05-12-2022 to 11-24-2024 Note Date & Type Note Facility 11-24-2024 Discharge summary [facility] 11-24-2024 Radiology Diagnostic study note [facility] Imaging Services [address] [place], [place] [id number] Brain/Head without Contrast MR#: [id number] Acct: [id number] Name: LUPIS RAMIREZ Rep #: [id number] : 1960 M 64 From: Devon Morales MD PCP: Dr. Dayami Anderson MD Status: REG ER Study:Brain/Head without Contrast Date of Exa m: 11/24/24 Exam# [id number] Ordering Dr: Jocelynn Hansen DO PROCEDURE: BRAIN/HEAD WITHOUT CONTRAST 11/24/2024 REASON FOR EXAM: DIZZINESS TECHNIQUE: Procedure Code: CTBR Modality: CT Procedure: BRAIN/HEAD WITHOUT CONTRAST Coronal and Sagittal reconstruction series were provided. One or more dose reduction techniques were used (e.g., Automated exposure control, adjustment of the mA and/or kV according to patient size, use of iterative reconstruction technique. RADIATION DOSE SUMMARY: CTDI Vol 44.99 mGy DLP :846.73 mGycm COMPARISON: 11-Jul-2021 FINDINGS: The visualized brain parenchyma shows normal appearance. No focal parenchymal abnormalities are demonstrated. Escobar-white matter differentiation is maintained. Normal CT appearance of the posterior fossa structures. No intracerebral or extra-axial hemorrhage. No midline shifts or deformity. Normal size and configuration of the cerebral ventricles. Mild asymmetry of the lateral ventricles, possibly developmental. Prominent fronto-parietal extra-axial CSF spaces. No definite calvarial fractures. The osseous structures in the skull base are unremarkable. Paranasal sinuses are unremarkable. CT/Brain/Head without Contrast IMPRESSION: No intracerebral or extra-axial hemorrhage. No acute cerebrovascular insult. If clinical symptoms persist, further evaluation with MRI may be considered as clinically warranted. Reading Location: [place] [address] CC: Dr. Dayami Anderson MD; DO Ritu Eason [employer] Sk[employer] Assembler: Signed [facility] 10-04-2024 Evaluation note Diagnosis Onset Date Resolution Essential (primary) hypertension chronic October 04 1:28pm Hyperlipidemia chronic September 1:28pm Malignant hypertension acute Oc tob2024 1:40pm Essential (primary) hypertension chronic November 09 1:40pm Hyperlipidemia chronic November 1:40pm Incomplete right bundle branch block November 09 1:40pm [facility] Work Phone: 1([phone]) 306-949008-27-2025 Evaluation note* Diagnosis Onset Date Resolution Status Admit Date Essential (primary) hypertension chronic October 04 1:28pm Hyperlipidemia chronic September 1:28pm Stage 2 hypertension acute Octo 2024 1:40pm Hyperlipidemia chronic November 1:40pm [facility] Work Phone: 1(610) 632-480605-27-2025 Evaluation note* Diagnosis Onset Date Resolution Status Admit Date Essential (primary) hypertension chr onic July 04, 2024 1:54pm Hyperlipidemia chronic July 04, 2024 1:54pm Essential (primary) hypertension chr onic October 04, 2024 1:28pm Hyperlipidemia chronic September 1:28pm [facility] Work Phone: 1(445) 234-729612-18-2023 Discharge summary Author Hemal Reddy [facility] January 25, 2023 5:11pm Note Date/Time January 25, 2023 4:37pm [facility] Medical Records Department [address] [place] [address] Emergency Department Summary 01/25/23 MR#: [id number] Acct: [id number] Name: LUPIS RAMIREZ Alhaji Rep #:[id number] : 1960 62 From: [...] going up and down a set of [id number]. He denies headache. [place] double vision, blurred [...] house current occupational status: employed current occupation: [employer] pets and animals: Yes pets and animals: [...] testand the hint test were both negative. Saint Bonaventure-Hallpike maneuver was positive both left and right. [...] negative neurologic test other than a positive Saint Bonaventure-Hallpike maneuver which reproduces symptoms and the nystagmus [...] your Primary Care Provider. Call [facility] ([phone]) or report to the closest Emergency Room. Call 911 if necessary. 01/25/23 1711 <Electronically signed by Hemal Reddy MD> Cosigner Signature (if applicable): CC: Dr. Dayami Anderson MD ~ Signed [facility] Work Phone: 1(558) 711-599104-04-2023 Discharge summary Author Pauline Brownlee [facility] May 12, 2022 9:57am Note Date/Time May 12, 2022 9:57 am [facility] Physical Therapy [facility] [address] [place] [address] [address] [place] [id number] / REHABILITATION SERVICES DISCHARGE SUMMARY MR#: [id number] Acct: [id number] Name: LUPIS RAMIREZ Rep #: [id number] : 1960 61 From: Pauline Brownlee PT, Cert. T Referring Dr.: Dr. Taurus Coyle, DO Status: REG RCR Insurance: [facility] Screen/[facility] SELF PAY INSURANCE LUPIS RAMIREZ was [...] Score: 14 <Electronically signed by Pauline Brownlee PT Cert. MDT> 05/12/22 0957 CC: Dr. Dayami Anderson MD; Dr. Taurus Coyle DO ~ JALEN Signed [facility] Work Phone: Discharge summary Author [facility] Note Date/Time November 24, 2024 6 :17am [facility] Medical Records Department [address] [place] [address] Emergency Department Summary 11/24/24 MR#: [id number] Acct: [id number] Name: LUPIS RAMIREZ Alhaji Rep #:[id number] : 1960 64 From: Rowdy Hansen DO PCP: Dr. Dayami Anderson MD Status:REG ER Location: ED HPI History of Present Illness Chief Complaint: Dizziness Informant: patient Narrative Narrative: Patient is a 64-year-old male with past medical history of hypertension hyperlipidemia and CAD. He states he went to bed normally and then awoke roughly an hour prior to arrival. He states he awoke and felt immediately "dizzy". He describes the dizziness as a sense of motion and stated it made himvery nauseous. He states he went to the bathroom as he felt he was going to vomit. He states he was unsure if maybe he had food poisoning as he also thought he had to have a bowel movement. He states he sat on the toilet but didnot produce really any stool and the nausea continue with just dry heaves. He states the dizziness seems to improve with rest but as soon as he looks around or moves that it returns. He states he is unsure if this is related to his hypertension or could be related to his history of coronary artery disease. He states he has had vertigo in the past and this does feel somewhat similar naturebut he also feels it is more severe/intense. Therefore he presents to the ER for evaluation [facility] Medical History Stage 2 hypertension Cellulitis of left lower leg Contact dermatitis of lower leg Incomplete right bundle branch block Essential (primary) hypertension GERD (gastroesophageal reflux disease) Chest pain History of tobacco use Home Medications ?Medication ?Instructions ?Recorded ?Last Taken ?Type hydrochlorothiazide 25 mg tablet 25 mg PO DAILY 11/29/19 History coQ10 (ubiquinol) 100 mg capsule 100 mg PO DAILY 08/01 Unknown History (Qunol Zane CoQ10) ezetimibe 10 mg tablet (Zetia) 10 mg PO QDAY #90 tabs 07/04/24 Unknown Rx losartan 100 mg tablet 100 mg PO DAILY #90 tabs Unknown Rx amlodipine 10 mg tablet 10 mg PO DAILY #90 tabs 10/10 07/02 Unknown Rx labetalol 100 mg tablet 100 mg PO BID #60 tabs 11/09 Unknown Rx magnesium 200 mg tablet 200 mg PO QDAY 11/09/24 Unkn own History diazepam 5 mg tablet (Valium) 5 mg PO TID PRN vertigo 5 days #15 11/24/24 Unknown Rx tabs ondansetron 4 mg disintegrating 4 mg PO TID PRN nausea and 11/24/24 Unknown Rx tablet vomiting #21 tabs Allergy/AdvReac Type Severity Reaction Status Date / Time rosuvastatin (From Crestor) AdvReac Intermediate muscle Verified 11/24/24 04:41 aches Family History Father CAD (coronary artery disease) Hypertension Heart disease Myocardial infarction Macular degeneration Mother CAD (coronary artery disease) Heart disease Diabetes Breast cancer Brother Hypertension Surgical History H/O tooth extraction History of colonoscopy (01/2017) History of tonsillectomy and adenoidectomy Social History household members: children housing: house current occupational status: employed current occupation: [employer] with [employer] and [employer] pets and animals: Yes pets and animals: cat(s), dog(s) and bird(s) Smoking Status: Former smoker how long ago did patient quit smokin years ago alcohol intake: never substance use type: does not use what type of physical activity do you participate in: none do you feel safe at home: Yes ROS ROS ED Constitutional Constitutional ED: Denies chills or fever(s) Eyes Eyes: Denies blurry vision or change in vision ENT ENT ED: Denies sore throat Cardiovascular Cardiovascular: Denies chest pain, palpitations or racing heartbeat Respiratory/Chest Respiratory/Chest: Denies cough or dyspnea Gastrointestinal Gastrointestinal: Reports nausea; Denies abdominal pain, diarrhea or vomiting Genitourinary Genitourinary ED: Denies dysuria Musculoskeletal Musculoskeletal: Denies back pain, myalgias or neck pain Integumentary Denies rash Neurologic Neurologic: Reports other Details: Positive dizziness ; Denies headache(s) Hematologic/Lymphatic Hematologic/Lymphatic: Denies easy bleeding or easy bruising EXAM Physical Exam Const Vital Signs: 11/24/24 04:41 11/24/24 04:44 11/24/24 05:40 Temperature 97.3 F L 97.3 F L 97.6 F L Temperature Source Oral Oral Oral Pulse Rate 71 75 78 Respiratory Rate 18 18 18 Blood Pressure 159/97 H 159/97 H 145/81 H Blood Pressure Mean 117 117 102 Pulse Ox 98 98 98 Oxygen Delivery Method Room Air Room Air Room Air Positive well nourished and well developed General Appearance ED: well developed; Negative for pallor HEENT HEENT Narrative: Normocephalic atraumatic No tongue or lip swelling no oral lesions no airway edema or compromise; no secondary findings in the posterior pharynx to suggest infection Bilateral canals and TMs are normal Eyes PERRL and EOMs intact bilaterally General Eye ED: Negative for scleral icterus Neck supple and no JVD Resp normal respiratory effort and clear to auscultation bilaterally Cardio regular rate and regular rhythm Rate: other Other Details: Radial and carotid pulses are equal and symmetric No carotid bruit noted GI normal to inspection, nondistended, normoactive bowel sounds, non-tender, non-distended and no masses GI Narrative: No voluntary guarding or rigidity or pulsatile mass No peritoneal signs Auscultation: normoactive bowel sounds Palpation: soft Extremity normal to inspection Neuro oriented x3, CN's II-XII intact bilaterally and no sensory deficits noted Neuro Narrative: GCS of 15 Cranial nerves II through XII are grossly intact without focal neurologic deficit No pronator drift no dysmetria no truncal ataxia NIH stroke scale score of 0 Horizontal nystagmus is noted bilaterally Positive Hallpike Rj exam on right Sensorium / Orientation: alert Motor Exam: strength 5/5 throughout Psych Mood & Affect: anxious Skin no rashes or lesions noted Skin Narrative: Capillary refill is less than 3 seconds General Skin Exam: Negative for jaundice or pallor MDM MDM MDM Narrative Medical decision making narrative: Patient arrived to the ER hypertensive but has a past medical history of this. He reported dizziness which he described more as a sense of motion that worsenedwith position change. It also would come on quickly and cause nausea. This history coupled with his physical exam of horizontal nystagmus and positive Hallpike [place] exam is most consistent with peripheral vertigo. However in order to ensure that the dizziness is not related to an abnormal cardiac rhythm cardiac event such as ACS or due to brain mass or brain bleed I did like to perform EKG placed the patient on court recording monitor and perform a noncontrast headCT. Labs were obtained to check for signs of acute blood loss anemia acute kidney injury or clinically significant electrolyte abnormality. EKG was sinus rhythm without STEMI or ischemic changes. The patient was kept on the court recording monitor and there was no cardiac dysrhythmia noted. Head CT revealed no acute bleed or mass. Lab work revealed no acute finding. After treatment with IV fluid as well as Zofran and Valium the patient did have improvement of his dizziness and his neurologic exam remained stable. Therefore at this time I do not feel the need for further workup or admission as his history and exam and workup indicate this is peripheral vertigo not central and he is otherwise safe for discharge History & Record Review Discussion w/independent historian: Patient Lab Data Attestation: I reviewed the patient's lab results. Labs: Laboratory Results - last 24 hr 11/24/24 04:50 WBC 8.0 RBC 5.10 Hgb 15.8 Hct 45.4 MCV 89.0 MCH 31.0 MCHC 34.8 RDW Std Deviation 39.5 RDW Coeff of [place] 12.0 Plt Count 246 MPV 9.3 Immature Gran % (Auto) 0.400 Neut % (Auto) 56.7 Lymph % (Auto) 25.9 [place] % (Auto) 13.1 H Eos % (Auto) 3.3 Baso % (Auto) 0.6 Absolute Neuts (auto) 4.5 Absolute Lymphs (auto) 2.06 Nucleated RBC % 0 Sodium 140 Potassium 3.4 Chloride 102 Carbon Dioxide 23.5 Anion Gap 15 BUN 23 H Creatinine 0.89 Estim Creat Clear Calc 93.34 Est GFR (MDRD) Non-Af 96 BUN/Creatinine Ratio 25.5 H Glucose 131 H Calcium 9.8 Magnesium 2.3 H Troponin T High Sens 6 Radiography Diagnostic Testing: Clinical Impression(s) from Imaging Studies Brain CT 11/24/24 05:00 IMPRESSION: No intracerebral or extra-axial hemorrhage. No acute cerebrovascular insult. If clinical symptoms persist, further evaluation with MRI may be considered as clinically warranted. Reading Location: [place] [address] Discharge Plan Triage Chief Complaint: Dizziness ED Provider: Rowdy Hansen Dx/Rx/DC Orders Clinical Impression: Peripheral vertigo, Hyperlipidemia, Essential (primary) hypertension, CAD (coronary artery disease) Instructions: Vestibular Rehab Therapy, ED Vertigo, Unspecified Prescriptions: New ondansetron 4 mg tablet,disintegrating 4 mg PO TID PRN (Reason: nausea and vomiting) Qty: 21 0RF diazepam [Valium] 5 mg tablet 5 mg PO TID PRN (Reason: vertigo) 5 Days Qty: 15 0RF No Action ezetimibe [Zetia] 10 mg tablet 10 mg PO QDAY Qty: 90 3RF magnesium 200 mg tablet 200 mg PO QDAY labetalol 100 mg tablet 100 mg PO BID Qty: 60 6RF hydrochlorothiazide 25 MG tablet 25 mg PO DAILY coQ10 (ubiquinol) [Qunol Zane CoQ10] 100 mg capsule 100 mg PO DAILY losartan 100 mg tablet 100 mg PO DAILY Qty: 90 3RF amlodipine 10 mg tablet 10 mg PO DAILY Qty: 90 3RF Primary Care Provider: Dayami Anderson Referrals: Dayami Anderson MD [Primary Care Provider, Family Practice] Activity Restrictions/Additional Instructions: Your workup today did not reveal signs of acute stroke or acute heart damage abnormal heart rhythm or brain bleed. This indicates her symptoms are most likely due to peripheral vertigo. Please take the prescribed medication as directed to help control symptoms. You may also discuss HEENT referral from your family doctor to further assess any other cause of your vertigo such as M?ni?re's disease. You may try the outpatient vertigo exercises such as the Dell maneuver to see if this helps speed resolution of symptoms as well. Return to the ER should you have any further concerns Print Language: Uzbek Disposition Disposition: Home, Self Care What to do if you have Problems For any increased pain, shortness of breath, bleeding, nausea or vomiting, chestpain, or any unexpected problems, contact your Primary Care Provider. Call [facility] ([phone]) or report to the closest Emergency Room. Call 911 if necessary. 11/24/24616 <Electronically signed by Rowdy Hansen DO> Cosigner Signature (if applicable): CC: Dr. Dayami Anderson MD ~ Signed [facility] Work Phone: Evaluation noteNo assessment information available [facility] Work Phone: Evaluation note* Diagnosis Onset Date Resolution Status Essential (primary) hypertension chronic Hyperlipidemia chronic [facility] Work Phone: Evaluation note* Diagnosis Onset Date Resolution Status Essential (primary) hypertension chronic Hyperlipidemia chronic Spondylolisthesis at L5-S1 level chronic [facility] Work Phone: Evaluation note* Diagnosis Onset Date Resolution Status Spondylolisthesis at L5-S1 level chronic [facility] Work Phone: Evaluation note* Diagnosis Onset Date Resolution Status Admit Date Essential (primary) hypertension chr onic July 04, 2024 1:54pm Hyperlipidemia chronic July 04, 2024 1:54pm [facility] Work Phone: Hospital Discharge instructions Additional Instructions You may try the Antivert for dizzy spells however this can cause drowsiness [facility] Work Phone: Hospital Discharge instructionsAdditional Instructions Your workup today did not reveal signs of acute stroke or acute heart damage abnormal heart rhythm or brain bleed. This indicates her symptoms are most likely due to peripheral vertigo. Please take the prescribed medication as directed to help control symptoms. You may also discuss HEENT referral from your family doctor to further assess any other cause of your vertigo such as M ni re's disease. You may try the outpatient vertigo exercises such as the Dell maneuver to see if this helps speed resolution of symptoms as well. Return to the ER should you have any [facility] Work Phone: Reason for referral (narrative)No reason for referral information availableSt[facility] Work Phone: Chief Complaint and Reason for [...] 2024 1: 28pm INCLUDE EORDER FROM 10/04 [facility] er 2024 7:18am 1 M FU November 09, 2024 1: 40pm Reason for Visit Admit Date Essential (primary) hypertension October 04, 2024 1:28pm Hyperlipidemia October 04, 2024 1: 28pm 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, 2024 1:40pm Essential (primary) hypertension November 09, 2024 1:40pm Hyperlipidemia November 09, 2024 1: 40pm Incomplete right bundle branch block Oct tiffanie 2024 1:40pm Chief Complaint Admit Date 3 M FU October 04, 2024 1: 28pm INCLUDE EORDER FROM 10/04 [facility] er 2024 7:18am 1 M FU November 09, 2024 1: 40pm I10 Essential (primary) hypertension Oct tiffanie 2024 12:43pm CT CALCIUM SCORING November 15, 2024 12 :45pm INT LAB ORDERS November 16, 2024 3: 10pm dizziness November 24, 2024 4 :40am HTN December 01, 2024 7 :48am Reason for Visit Admit Date Essential (primary) hypertension October 04, 2024 1:28pm Hyperlipidemia October 04, 2024 1: 28pm Stage 2 hypertension November 09, 2024 1 :40pm Hyperlipidemia November 09, 2024 1: 40pm Family History No Family History Records Found [...] July 11, 2021 5 :51pm Power of Patent Leather Sorter No July 11, 2021 5:51pm Advance Directive Response Recorded Date/ Time Living Will No July 11, 2021 4 :51pm Power of Patent Leather Sorter No July 11, 2021 4:51pm Advance Directive Response Recorded Date/ Time Living Will No February 20 2:05pm Power of Patent Leather Sorter No February 20, 2022 2:05pm Advance Directive Response Recorded Date/ Time Living Will No February 20 3:05pm Power of Patent Leather Sorter No February 20, 2022 3:05pm Advance Directive Response Recorded Date/ Time Living Will No January 25, 2 023 4:09pm Power of Patent Leather Sorter No January 25, 2023 4:09pm Advance Directive Response Recorded Date/ Time Do you have a [facility] Power of Patent Leather Sorter? No November 24, 2024 4:45am Summary Purpose Additional Source Comments Goals (unrecognized [...] Provider, Referrin g Provider Active Jina Woods TUBER MACHINE OPERATOR HELPER, TUBER MACHINE OPERATOR HELPER-C Attending Provider Active Team Status: Inactive Member Role Status Dates Dr. Dayami Anderson MD Primary Care Provider, Referrin g Provider Active Dr. Taurus Coyle DO Attending Provider Active Team Status: Inactive Member Role Status Dates Dr. Dayami Anderson MD Primary Care Provider Active Jina Woods TUBER MACHINE OPERATOR HELPER, TUBER MACHINE OPERATOR HELPER-C Attending Provider, Referring P rovider Active Team [...] 09, 2024 End: November 09, 2024 Karla SARABIA PA Attending physician Active Start: November 09, 2024 End: November 09, 2024 Team Status: Active Member Role/Relationship Status [...] November 09, 2024 End: November 09, 2024 Team Status: Active Member Role/Relationship Status Dates Dr. Dayami Anderson MD Primary care physician Active Start: November 15, 2024 Karla SARABIA PA Attending physician Active Start: November 15, 2024 Karla SARABIA PA Referring Provider Active Start: November 15, 2024 Team Status: Active Member Role/Relationship Status Dates Dr. Dayami Anderson MD Primary care physician Active Start: November 15, 2024 Dr. Calvin Yanes MD Attending physician Active Start: November 15, 2024 Karla SARABIA PA Referring Provider Active Start: November 15, 2024 Team Status: Inactive Member Role/Relationship Status Dates Dr. Dayami Anderson MD Primary care physician Active Start: November 16, 2024 End: November 16, 2024 CORNELL Kelly Attending physician Active Start: November 16, 2024 End: November 16, 2024 CORNELL Kelly Referring Provider Active Start: November 16, 2024 End: November 16, 2024 Team Status: Inactive Member Role/Relationship Status Dates Dr. Dayami Anderson MD Primary care physician Active Start: November 24, 2024 End: November 24, 2024 Dr. Rowdy Hansen DO Attending physician Active Start: November 24, 2024 End: November 24, 2024 Dr. Rowdy Hansen DO Emergency Departme nt Physician Active Start: November 24, 2024 End: November 24, 2024 Team Status: Active Member Role/Relationship Status Dates Dr. Dayami Anderson MD Primary care physician Active Start: December 01, 2024 Karla SARABIA PA Attending physician Active Start: December 01, 2024 Karla SARABIA PA Referring Provider Active Start: December 01, 2024 Team Status: Active Member Role/Relationship Status Dates Dr. Dayami Anderson MD Primary care physician Active Start: December 01, 2024 Dr. Pato Harkins MD Attending physician Active Start: December 01, 2024 (unrecognized sect ion and content) No Status Records Found INFORMATION SOURCE (unrecogn ized section and content) DATE CREATED AUTHOR 12/14/2024 [facility] FOR RECORDS PERTAINING TO PATIENTS WHO ARE [...] BE BASED ON THE PRIMARY CLINICAL RECORDS. [employer] [facility]. provides no warranty or guarantee of the accuracy or completeness of information in this document.
[2024-12-15 08:50] LABS: CORTISOL AM 13.70 ug/dL (6.02-18.40)
== END | disposition home or self-care (01) ==
PROVIDERS: PCP Family Medicine; Referring Provider Physician Assistant Medical; Visit Provider Physician Assistant Medical
DX: I1A.0 Resistant hypertension (principal)
CPT/HCPCS: 36415; 82533